=== PATIENT | female | born 1985 | race American Indian/Alaskan Native ===

== ENCOUNTER 2021-04-02 05:30 | Inpatient (IN) | payer SELFPAY ==
[2021-04-02] MEDS ORDERED: ONDANSETRON 4 MG/2 ML INJ IV PRN (06:53)
[2021-04-02] MEDS ORDERED: ONDANSETRON 4 MG/2 ML INJ IV ONE (06:53)
[2021-04-02] MEDS ORDERED: DEXTROSE 50% IN WATER (25GM) 50 ML SYRINGE IV PRN (06:54)
[2021-04-02] MEDS ORDERED: HALOPERIDOL LACTATE 5 MG/1 ML INJ IM PRN (06:55)
[2021-04-02] MEDS ORDERED: LACTATED RINGERS 1,000 ML IV ONE ×2 (06:57→08:40)
--- NOTE | 2021-04-02 06:58 | Emergency Department Report ---
ED General Adult HPI - General Chief complaint: Alcohol Stated complaint: ETOH, ABD PAIN PUI?: No Time Seen by Provider: 04/02/21 06:37 Source: EMS ( EMS documentation not available at time of chart dictation ), RN notes reviewed Mode of arrival: Stretcher Limitations: Altered Mental Status - History of Present Illness Initial comments: The patient was evaluated in the emergency department for symptoms described in the history of present illness. He/she was evaluated in the context of the global COVID-19 pandemic, which necessitated consideration that the patient might be at risk for infection with the virus that causes COVID-19. Institutional protocols and algorithms that pertain to the evaluation of patients at risk for COVID-19 are in a state of rapid change based on information released by regulatory bodies including the CDC and federal and state organizations. These policies and algorithms were followed during the patient's care in the emergency department. Please note that these policies, procedures and recommendations changed on a rapid basis. During the history and physical examination, I am chaperoned by nurse Nadja Fermin This is a 35-year-old female. She is not known to myself previously. She appears to be visiting from [place]. The details of her past medical history and context of her arrival to this emergency room are unclear. As per nursing documentation, the patient consumed quite a bit of alcohol today, may have mentioned something about suicidality, and also complained of abdominal pain. There is also documentation of a possible recent colonoscopy. The patient herself is altered. The patient moves 4 extremities. The patient would not answer my open ended or close ended questions. Nursing team reports that the patient was moving 4 extremities spontaneously. They also report that the patient really wouldn't follow commands. Additional history is not available at this time. Patient herself is altered, and not able to describe the qualitative nature of symptoms, exacerbating factors, relieving factors, or aggravating factors. -: unknown Location: abdomen (Nursing team indicates the patient complained of abdominal pain) Severity scale (0 -10): 5 - Related Data Allergies Allergy/AdvReac Type Severity Reaction Status Date / Time No Known Allergies Allergy Unverified 04/02/21 05:40 ED Review of Systems ROS: Stated complaint: ETOH, ABD PAIN Other details as noted in HPI Comment: Unobtainable due to pts medical conditions ED Past Medical Hx - Social History Smoking Status: Unknown if ever smoked ED Physical Exam - General Limitations: Altered Mental Status General appearance: lethargic, obese - Head Head exam: Present: atraumatic, normocephalic - Eye Eye exam: Present: EOMI, other (Pupils are dilated to 5/6 mm. Minimal reactive to light.) - ENT ENT exam: Present: mucous membranes moist - Neck Neck exam: Present: normal inspection. Absent: tenderness - Respiratory Respiratory exam: Present: accessory muscle use. Absent: respiratory distress, rales, rhonchi, stridor - Cardiovascular Cardiovascular Exam: Present: normal rhythm, tachycardia, normal heart sounds. Absent: bradycardia, irregular rhythm, systolic murmur, diastolic murmur, rubs, gallop - GI/Abdominal GI/Abdominal exam: Present: soft. Absent: distended, tenderness, guarding, rebound, rigid, pulsatile mass - Rectal Rectal exam: Present: normal inspection (Chaperoned by nurse Nadja Fermin) - External exam: Present: normal external exam (Chaperoned by nurse Nadja Decker). Absent: erythema, swelling - Extremities Exam Extremities exam: Present: normal inspection, full ROM, other (2+ pulses noted in the bilateral upper and lower extremities. There is no palpable cord. negative Homans sign. Muscular compartments are soft. The pelvis is stable.). Absent: pedal edema, calf tenderness - Back Exam Back exam: Present: normal inspection, full ROM. Absent: tenderness, CVA tenderness (R), CVA tenderness (L), paraspinal tenderness, vertebral tenderness - Neurological Exam Neurological exam: Present: altered, other (The patient is altered. The patient moves 4 extremities spontaneously. Detailed neurologic examination not possible secondary to altered mental status) - Skin Skin exam: Present: warm, dry, intact, normal color. Absent: rash ED Course Vital Signs 04/02/21 04/02/21 04/02/21 05:53 06:02 06:16 Temperature 97.7 F Pulse Rate 121 H Respiratory 18 Rate Blood Pressure 123/96 Blood Pressure 123/96 [Left] O2 Sat by Pulse 93 94 95 Oximetry O2 Sat by Pulse Oximetry [ Digit-Finger] 04/02/21 04/02/21 04/02/21 06:30 06:46 07:09 Temperature Pulse Rate 97 H 105 H 116 H Respiratory 15 25 H 19 Rate Blood Pressure 123/96 123/96 123/96 Blood Pressure [Left] O2 Sat by Pulse 86 90 91 Oximetry O2 Sat by Pulse Oximetry [ Digit-Finger] 04/02/21 04/02/21 04/02/21 07:16 07:30 07:44 Temperature Pulse Rate 118 H 119 H Respiratory 20 15 18 Rate Blood Pressure 123/96 93/49 Blood Pressure [Left] O2 Sat by Pulse 95 99 95 Oximetry O2 Sat by Pulse Oximetry [ Digit-Finger] 04/02/21 04/02/21 04/02/21 07:46 08:00 08:16 Temperature Pulse Rate 117 H 114 H 117 H Respiratory 17 25 H 32 H Rate Blood Pressure 100/49 98/48 100/49 Blood Pressure [Left] O2 Sat by Pulse 100 100 100 Oximetry O2 Sat by Pulse Oximetry [ Digit-Finger] 04/02/21 04/02/21 04/02/21 08:30 08:46 09:00 Temperature Pulse Rate 116 H 112 H 112 H Respiratory 27 H 20 13 Rate Blood Pressure 95/49 93/51 103/53 Blood Pressure [Left] O2 Sat by Pulse 99 Oximetry O2 Sat by Pulse Oximetry [ Digit-Finger] 04/02/21 04/02/21 04/02/21 09:16 09:30 09:46 Temperature Pulse Rate 113 H 110 H 108 H Respiratory 34 H 14 Rate Blood Pressure 127/60 127/60 127/60 Blood Pressure [Left] O2 Sat by Pulse 100 Oximetry O2 Sat by Pulse Oximetry [ Digit-Finger] 04/02/21 04/02/21 04/02/21 10:00 10:03 10:16 Temperature Pulse Rate 109 H 106 H Respiratory 26 H 40 H 28 H Rate Blood Pressure 127/60 90/43 Blood Pressure [Left] O2 Sat by Pulse 100 100 100 Oximetry O2 Sat by Pulse Oximetry [ Digit-Finger] 04/02/21 04/02/21 04/02/21 10:30 10:46 11:00 Temperature Pulse Rate 107 H 106 H 113 H Respiratory 37 H 39 H 41 H Rate Blood Pressure 90/43 90/43 94/41 Blood Pressure [Left] O2 Sat by Pulse 100 100 100 Oximetry O2 Sat by Pulse Oximetry [ Digit-Finger] 04/02/21 04/02/21 04/02/21 11:16 11:30 11:46 Temperature Pulse Rate 104 H 103 H 104 H Respiratory 16 39 H 33 H Rate Blood Pressure 94/41 84/36 78/41 Blood Pressure [Left] O2 Sat by Pulse 100 99 Oximetry O2 Sat by Pulse Oximetry [ Digit-Finger] 04/02/21 04/02/21 12:00 13:51 Temperature Pulse Rate 103 H Respiratory 37 H Rate Blood Pressure 101/53 Blood Pressure [Left] O2 Sat by Pulse 100 Oximetry O2 Sat by Pulse 90 Oximetry [ Digit-Finger] - Reevaluation(s) Reevaluation #1: 04/02/21 07:23 Differential diagnosis, including the not limited to: Toxic encephalopathy/alcohol intoxication, intracranial lesion, cervical spine lesion, intra-abdominal lesion, dehydration, electrolyte derangement Assessment and plan: 35-year-old female, who is clinically intoxicated. She presents as altered. The specifics of her prearrival to this hospital are unclear. Place patient on [address]. Obt[address] CT scan of the brain, cervical spine, CT scan of the abdomen pelvis. Obtain appropriate laboratory studies. Place patient on oxygen, obtain arterial blood gas, obtain urinalysis, and EKG. Obtain mental health evaluation. Reassess after initial data points. 04/02/21 07:49 EMS documentation is now are reviewed and appreciated. Apparently, family called 911 because the patient had been consuming alcohol, was laying on her side, and complaining of depression. Reportedly she had a colonoscopy 2 days prior to arrival here in [place]. EMS reports the patient is alert and oriented x2, with unremarkable vital signs. Work-up will continue as planned. 04/02/21 09:12 This patient pulled out her IV. She is impaired and intoxicated and encephalopathic at this time. She is found to have a white blood cell count of 17, which I suspect is a stress reaction. However, her laboratory studies have demonstrated renal insufficiency, and profound metabolic acidosis. I suspect that this is secondary to dehydration. However, we will give additional IV fluids, switch to normal saline, load empirically with ceftriaxone. We will also obtain arterial blood gas, blood cultures and lactic acid. I will also obtain a serum osmolality. The patient is acutely and critically ill, her test has not resulted at this time, but given her profound metabolic acidosis, leukocytosis, renal insufficiency, she is emergently and administratively consented for CT scan before test results by myself, for brain, cervical spine and abdomen pelvis without IV contrast, to evaluate for potential time sensitive conditions. In addition, have requested emergent consultation from both nephrology and critical care. We are currently awaiting callback. This patient will require admission to the medical service. She required soft wrist restraints. Hesitant to chemically restrain patient at this time, given obvious intoxication and encephalopathy. 04/02/21 09:14 2 L of supplemental oxygen will also be continued 04/02/21 10:04 CT scan of the brain, cervical spine, abdomen pelvis negative for acute trauma tic findings. Patient has profound metabolic acidosis. Serum toxicology studies, uric acid, toxic alcohol screen, osmolality studies ordered and pending. 2 A of sodium bicarbonate ordered. Have reached out and discussed the patient's history, physical, laboratory studies, imaging studies with hospital physician, critical care physician, and nephrology on-call respectively. Hospital physician, Dr. Peyman Kilpatrick to admit to the ICU Dr Kee approves admission to the ICU and will follow in consultation Dr Moncada of nephrology has recommended emergent hemodialysis. 2 A of sodium bicarbonate ordered, and he states he will order a sodium bicarbonate drip. He requested a vascular access catheter for hemodialysis. Dr Kee to place dialysis catheter This patient is critically ill with a profound metabolic acidosis, and requires multiple time sensitive emergent interventions. 04/02/21 13:50 38.6 mOsm/kg Osm Gap This is a significant Osm Gap; if there is also an anion gap acidosis, you should strongly consider methanol or ethylene glycol intoxication. osmolar gap This patient presented altered, with a profound metabolic acidosis. She also was found to have a significant osmolar gap. The patient requires emergent hemodialysis. Dr. Moncada and myself have emergently administratively consented this patient for emergent hemodialysis. The patient is altered encephalopathic, and does not have decision-making capacity, and is not currently accompanied by surrogate decision-maker. Furthermore, [place]. It is in this patient's best medical interest to receive emergency hemodialysis. 04/02/21 15:14 - EJ/Peripheral Line Neck L Time Out Performed: Yes Indications: nurses unable to establis Skin Cleansed in Sterile Fashion: Yes Size: 20 Dressing Placed: Tegaderm Patient Tolerated Procedure: well Other Time Out Performed: Yes Indications: nurses unable to establis Skin Cleansed in Sterile Fashion: Yes Size: 20 Dressing Placed: Tegaderm Patient Tolerated Procedure: well Additional Comments: Left-sided internal jugular IV is placed again. The patient pulled out her initially placed IV. - Pulse Oximetry Interpretation Digit-Finger Initial Pulse Oximetry Readin O2 Sat by Pulse Oximetry: 90 Actions Taken: increased FIO2 to (2 liters via nasal cannula) ED Medical Decision Making - Lab Data Result diagrams: 04/02/21 07:09 04/02/21 07:09 Vital Signs 04/02/21 04/02/21 04/02/21 05:53 06:02 07:09 Temperature 97.7 F Pulse Rate 121 H 116 H Respiratory 18 19 Rate Blood Pressure 123/96 Blood Pressure 123/96 [Left] O2 Sat by Pulse 93 94 91 Oximetry - EKG Data -: EKG Interpreted by Ma EKG shows normal: sinus rhythm Rate: tachycardia - EKG Data When compared to previous EKG there are: previous EKG unavailable 04/02/21 08:41 EKG interpreted at 08: 22 Sinus rhythm, tachycardia, rate 115 bpm. Normal axis, normal P wave axis, high left ventricular voltage, QTC prolonged, and 506 ms. QT 365 ms. This is an abnormal EKG. This is not a STEMI. - Radiology Data Radiology results: pending, report reviewed, image reviewed CT ABDOMEN AND PELVIS WITHOUT CONTRAST INDICATION: ams etoh intox abd pain. TECHNIQUE: Axial CT images were obtained through the abdomen and pelvis without IV contrast. All CT scans at this location are performed using CT dose reduction for ALARA by means of automated exposure control. COMPARISON: None available. FINDINGS: Limited by motion artifact. LOWER CHEST: No significant abnormality. LIVER: Moderate decreased attenuation characteristic for steatosis. GALLBLADDER: No significant abnormality. BILE DUCTS: No significant abnormality. PANCREAS: No significant abnormality. SPLEEN: No significant abnormality. ADRENALS: No si gnificant abnormality. RIGHT KIDNEY and URETER: No significant abnormality. LEFT KIDNEY and URETER: No significant abnormality. STOMACH and SMALL BOWEL: No significant abnormality. COLON: No significant abnormality. APPENDIX: No significant abnormality. PERITONEUM: No free fluid. No free air. No fluid collection. LYMPH NODES: No significant adenopathy. AORTA and ARTERIES: No significant abnormality. IVC and VEINS: No significant abnormality. URINARY BLADDER: No significant abnormality. REPRODUCTIVE ORGANS: No significant abnormality. ADDITIONAL FINDINGS: None. SKELETAL SYSTEM: No significant abnormality. IMPRESSION: 1. No significant abnormality. 2. Hepatic steatosis. Signer Name: Ferny Dean MD Signed: 04/02/2021 8:[address] head/brain wo con INDICATION: ams etoh intox. TECHNIQUE: Routine CT head. All CT scans at this location are performed using CT dose reduction for ALARA by means of automated exposure control. COMPARISON: None. FINDINGS: Intracranial: Diaz-white matter differentiation is maintained. No intracranial hemorrhage. No extra axial collection. No hydrocephalus. No herniation. Sinuses: Paranasal sinuses and mastoid air cells are essentially clear. Orbits: Globes are intact. Calvarium: No acute fracture. IMPRESSION: 1. No acute intracranial abnormality. Signer Name: Dick Liu MD Signed: 04/02/2021 8:36 AM Workstation Name: [id number] CT CERVICAL SPINE WITHOUT CONTRAST INDICATION: ams etoh intox. TECHNIQUE: Axial imaging performed through the cervical spine without the use of contrast. Sagittal and coronal reconstructed images were also reviewed. All CT scans at this location are performed using CT dose reduction for ALARA by means of automated exposure control. COMPARISON: None FINDINGS: Alignment: Spinal alignment is normal. Bones: There is no acute osseous abnormality. Mild multilevel discogenic DJD is present. Soft tissues: No acute or significant incidental soft tissue abnormality. IMPRESSION: No acute abnormality. Signer Name: Jose Gomez Jr, MD Signed: 04/02/2021 8:35 AM Workstation Name: [id number] Critical Care Time: Yes Critical care time in (mins) excluding proc time.: 65 Critical care attestation.: If time is entered above; I have spent that time in minutes in the direct care of this critically ill patient, excluding procedure time. ED Disposition Clinical Impression: Acute encephalopathy, Renal insufficiency, Metabolic acidosis, Systemic inflammatory response syndrome (SIRS), Abdominal pain, Pancreatitis Disposition: 09 ADMITTED INPATIENT Is pt being admited?: Yes Does the pt Need Aspirin: No Condition: Critical
[2021-04-02 08:09] LABS: Mean Corpuscular HGB Conc 27 % (30-34); Mean Corpuscular Volume 100 fl (79-97); Platelet Count 184 K/mm3 (140-440); Red Blood Count 3.57 M/mm3 (3.65-5.03)
[2021-04-02] MEDS ORDERED: THIAMINE 100 MG, FOLIC ACID 1 MG, MULTIPLE VITAMIN INJ, ADULT 10 ML in SODIUM CHLORIDE ... IV ONE (08:30)
[2021-04-02 08:35] LABS: Hematocrit 35.7 % (30.3-42.9); Hemoglobin 9.6 gm/dl (10.1-14.3); Red Cell Distribution Width 26.9 % (13.2-15.2)
[2021-04-02 08:37] LABS: Calcium 11.1 mg/dL (8.4-10.2)
[2021-04-02] MEDS ORDERED: LIDOCAINE-MPF (1%) 10 MG/1 ML VIAL 5 ML INFILTRATI ONE (09:07)
[2021-04-02] MEDS ORDERED: SODIUM CHLORIDE 0.9% 1000 ML 2,000 ML IV ONE ×2 (09:08→11:41)
[2021-04-02] MEDS ORDERED: cefTRIAXone/NS 1 GM/50 ML 1 GM/50 ML BAG IV STA (09:22)
--- NOTE | 2021-04-02 09:39 | Cat Scan Report ---
CT CERVICAL SPINE WITHOUT CONTRAST INDICATION: ams etoh intox. TECHNIQUE: Axial imaging performed through the cervical spine without the use of contrast. Sagittal and coronal reconstructed images were also reviewed. All CT scans at this location are performed us ing CT dose reduction for ALARA by means of automated exposure control. COMPARISON: None FINDINGS: Alignment: Spinal alignment is normal. Bones: There is no acute osseous abnormality. Mild multilevel discogenic DJD is present. Soft tissues: No acute or significant incidental soft tissue abnormality. IMPRESSION: No acute abnormality. Signer Name: Jose Gomez Jr, MD Signed: 04/02/2021 9:35 AM Workstation Name: [id number]
--- NOTE | 2021-04-02 09:40 | Cat Scan Report ---
CT head/brain wo con INDICATION: ams etoh intox. TECHNIQUE: Routine CT head. All CT scans at this location are performed using CT dose reduction for A JULITO by means of automated exposure control. COMPARISON: None. FINDINGS: Intracranial: Diaz-white matter differentiation is maintained. No intracranial hemorrhage. No extra a xial collection. No hydrocephalus. No herniation. Sinuses: Paranasal sinuses and mastoid air cells are essentially clear. Orbits: Globes are intact. Calvarium: No acute fracture. IMPRESSION: 1. No acute intracranial abnormality. Signer Name: Dick Liu MD Signed: 04/02/2021 9:36 AM Workstation Name: [id number]
[2021-04-02] MEDS ORDERED: SODIUM CHLORIDE 0.9% 100 ML IV PRN (10:01)
[2021-04-02] MEDS ORDERED: SODIUM BICARB 8.4% 50 MEQ/50 ML SYRINGE IV ONE (10:02)
--- NOTE | 2021-04-02 10:02 | Consultation ---
History of Present Illness - History of Present Illness Thank you for the consultation Patient was evaluated today My assessment and plan are as follows #Renal failure severe in a patient with unexplained severe acidosis altered mental status some shortness of breath, history of alcohol abuse, She is unable to provide any history and since she has severe acidosis and renal failure which is unexplained will order workup for that and will need immediate renal replacement therapy possibility of toxic alcohol ingestion cannot be ruled out including ethylene glycol, tox screen needs to be sent, patient is not a good historian and unable to provide history due to encephalopathy Discussed with emergency room physician about emergent dialysis and immediate Vas-Cath placement through ICU, We will send all the renal related labs including osmolality, renal ultrasonogram urinalysis, a gap calculation, Continue to patiently monitor renal function for any meaningful recovery follow- up on the tox screen, #Severe acidosis unexplained patient does need emergent dialysis she has labored breathing and renal failure of unexplained etiology #History of chronic alcohol abuse? Excellent glycol intoxication rule out others, may need to see psychiatry, #Altered mental status most likely resulting from toxic and metabolic causes, me eds close follow-up at this time renal prognosis remains very guarded, will wait for dialysis to see how she does she may need a repeat dialysis treatment tomorrow depending on her labs, History of alcohol abuse should be followed by psychiatry to rule out any underlying depression, suicidal ideation etc. Care plan was discussed with the ICU attending physician Dr. Dailey as well as ER physician about immediate renal replacement therapy, dialysis catheter will be placed at [facility] and saw the patient in the ER Author: Phillip Moncada M.D. [facility], [address] [place] [address] Tel; [phone] Source of information: From current chart emergency room physician patient encephalopathic confused disoriented unable to provide any history History of present illness 35-year-old female with a to ER with complaints of Patient was noted to be severely acidotic, there is no record in our system to know whether she has kidney disease or not but patient is also disoriented confused, and has labored breathing, Patient is bicarbonate upon admission was only 2 creatinine was 1.8 most information was obtained from patient's current chart Past medical history:reviewed from the current chart Current allergies: Reviewed from the current chart Social history: Reviewed from the current chart Family history: Reviewed from the current chart Review of system: unable to provide history due to confusion and disorientation Physical examination Vitals: Reviewed General: disoriented confused HEENT: Oral mucosa moist no pallor or icterus Neck: Supple without any JVD thyromegaly or nodular mass Chest: appears to be tachypneic respiratory rate 26, few basilar crackles Heart: Regular rate and rhythm S1-S2 heard no S3-S4 Abdomen: Soft nontender, bowel sounds present no renal bruit no suprapubic masses no CVA tenderness noted Extremity: Minimal edema dry skin no peripheral cyanosis Endocrine: Thyroid not enlarged Psychiatric: remains disoriented and confused Musculoskeletal: No joint effusion noted Labs and x-rays: Reviewed from this admission Medications and Allergies Allergies Allergy/AdvReac Type Severity Reaction Status Date / Time No Known Allergies Allergy Unverified 04/02/21 05:40 Active Meds: Active Medications Dextrose (Dextrose 50% In Water (25gm) 50 Ml Syringe) 50 ml IV Q30MIN PRN; Protocol PRN Reason: Hypoglycemia Thiamine HCl 100 mg/ Folic Acid 1 mg/ Multivitamins/Minerals 10 ml/ Sodium Chloride 1,011.2 mls @ 250 mls/hr IV ONCE ONE Stop: 04/02/21 12:32 Last Admin: 04/02/21 08:28 Dose: 250 mls/hr Documented by: Lorazepam (Lorazepam 2 Mg/Ml Vial) 2 mg IM Q4HR PRN PRN Reason: Agitation Ondansetron HCl (Ondansetron 4 Mg/2 Ml Inj) 4 mg IV Q4H PRN PRN Reason: Nausea And Vomiting Exam - Vital Signs Vital signs: Vital Signs Temp Pulse Resp BP Pulse Ox 97.7 F 121 H 18 123/96 93 04/02/21 05:53 04/02/21 05:53 04/02/21 05:53 04/02/21 05:53 04/02/21 05:53 Results - Lab Results 04/07/21 05:03 04/07/21 05:03 Most recent lab results Calcium 11.1 mg/dL (8.4-10.2) H 04/02/21 07:09 Magnesium 3.50 mg/dL (1.7-2.3) H 04/02/21 07:09
[2021-04-02] MEDS ORDERED: SODIUM BICARBONATE 2 MEQ/2 ML SYRINGE IV STA (10:08)
--- NOTE | 2021-04-02 10:26 | Electrocardiograph Report ---
[facility] Test Date: 2021-04-02 Test Time: 08:22:35 Pat Name: MARIA DEL CARMEN MARCUS Department: Room: Gender: F Nuclear Chemistry Technician: ALEXANDRA VERDINB: 1985 Requested By: JAZIEL MELLO Order Number: [id number] Reading MD: Idris Gomes Measurements Intervals [place] Rate: 115 P: 60 MD: 152 QRS: 60 QRSD: 88 T: 62 QT: 365 QTc: 506 Interpretive Statements Sinus tachycardia Prolonged QT interval No previous ECG available for comparison Electronically Signed On 04-02-2021 10:25:47 EDT by Idris Gomes
--- NOTE | 2021-04-02 10:57 | Event Note ---
Date: 04/02/21 I attempted to evaluate 35y/o Allyn Wilder. The patient appears to be heavily sedated during the visit. She is in 4 point restraints. She is slightly awake, but unable to tell me anything. She is grunting, and moaning. She is confused and does not know where she is. The patient keeps repeating "I want some water." Will revaluate the patient when she is more awake and able to engage in the evaluation.
[2021-04-02] MEDS ORDERED: SODIUM BICARBONATE 150 MEQ in WATER FOR INJECTION (PF) 1,000 ML IV SCH (11:00)
--- NOTE | 2021-04-02 11:24 | Consultation ---
History of Present Illness Consult date: 04/02/21 Requesting physician: JAZIEL MELLO Reason for consult: other (Severe Metabolic Acidosis; Acute Encephalopathy) History of present illness: PCCM CONSULT NOTE (Full dictation # [id number]) Please see dictated notes for full details Medications and Allergies Allergies Allergy/AdvReac Type Severity Reaction Status Date / Time No Known Allergies Allergy Unverified 04/02/21 05:40 Active Meds: Active Medications Dextrose (Dextrose 50% In Water (25gm) 50 Ml Syringe) 50 ml IV Q30MIN PRN; Prot ocol PRN Reason: Hypoglycemia Thiamine HCl 100 mg/ Folic Acid 1 mg/ Multivitamins/Minerals 10 ml/ Sodium Chloride 1,011.2 mls @ 250 mls/hr IV ONCE ONE Stop: 04/02/21 12:32 Last Admin: 04/02/21 08:28 Dose: 250 mls/hr Documented by: Sodium Chloride (Nacl 0.9%) 100 mls @ 999 mls/hr IV DIMPLE PRN PRN Reason: Hypotension Sodium Bicarbonate 150 meq/ (Sterile Water) 1,150 mls @ 100 mls/hr IV DIRECT MARIAH Lorazepam (Lorazepam 2 Mg/Ml Vial) 2 mg IM Q4HR PRN PRN Reason: Agitation Ondansetron HCl (Ondansetron 4 Mg/2 Ml Inj) 4 mg IV Q4H PRN PRN Reason: Nausea And Vomiting Physical Examination Vital signs: Vital Signs Temp Pulse Resp BP Pulse Ox 97.7 F 121 H 18 123/96 93 04/02/21 05:53 04/02/21 05:53 04/02/21 05:53 04/02/21 05:53 04/02/21 05:53 Results - Laboratory Findings CBC and BMP: 04/02/21 07:09 04/02/21 07:09 ABG ABG pH 6.657 (7.320-7.450) L 04/02/21 10:02 POC ABG pCO2 16.1 mmHg (32.0-48.0) L 04/02/21 10:02 POC ABG pO2 142.3 mmHg (83-108) H 04/02/21 10:02 POC ABG HCO3 1.8 04/02/21 10:02 ABG O2 Saturation 96.9 (0-100) 04/02/21 10:02 Abnormal lab findings: Abnormal Labs 04/02/21 04/02/21 04/02/21 07:09 07:09 07:09 WBC 17.9 H RBC 3.57 L Hgb 9.6 L MCV 100 H MCH 27 L MCHC 27 L RDW 26.9 H ABG pH POC ABG pCO2 POC ABG pO2 ABG Hemoglobin ABG Sodium ABG Potassium ABG Glucose Potassium 5.3 H Chloride 92.2 L Carbon Dioxide 2 L* Creatinine 1.8 H Calcium 11.1 H Magnesium 3.50 H AST 202 H Lipase Arterial Blood Glucose Arterial Blood Ionized Calcium Salicylates < 0.3 L Acetaminophen Plasma/Serum Alcohol 04/02/21 04/02/21 04/02/21 07:09 07:09 07:09 WBC RBC Hgb MCV MCH MCHC RDW ABG pH POC ABG pCO2 POC ABG pO2 ABG Hemoglobin ABG Sodium ABG Potassium ABG Glucose Potassium Chloride Carbon Dioxide Creatinine Calcium Magnesium AST Lipase 448 H Arterial Blood Glucose Arterial Blood Ionized Calcium Salicylates Acetaminophen 5.0 L Plasma/Serum Alcohol 0.13 H 04/02/21 10:02 WBC RBC Hgb MCV MCH MCHC RDW ABG pH 6.657 L POC ABG pCO2 16.1 L POC ABG pO2 142.3 H ABG Hemoglobin 9.7 L ABG Sodium 116.9 L ABG Potassium 5.4 H ABG Glucose 100 H Potassium Chloride Carbon Dioxide Creatinine Calcium Magnesium AST Lipase Arterial Blood Glucose 100 H Arterial Blood Ionized Calcium 5.4 H Salicylates Acetaminophen Plasma/Serum Alcohol
[2021-04-02 11:31] LABS: Hepatitis C Virus Antibody Non-Reactive (NonReactive)
[2021-04-02] MEDS ORDERED: SODIUM CHLORIDE 0.9% 1000 ML 2,000 ML ONE (11:39)
[2021-04-02] MEDS ORDERED: NORepinephrine/NS 4 MG-250 ML 4 MG/250 ML BAG IV ONE (11:45)
--- NOTE | 2021-04-02 11:55 | XRay Report ---
CHEST 1 VIEW 04/02/2021 11:49 AM INDICATION / CLINICAL INFORMATION: vas cath placement. COMPARISON: None available. FINDINGS: SUPPORT DEVICES: Right Vas-Cath tip overlies the distal SVC HEART / MEDIASTINUM: No significant abnormality. LUNGS / PLEURA: Mild increased pulmonary vascularity No pneumothorax. ADDITIONAL FINDINGS: No significant additional findings. IMPRESSION: 1. No acute findings. Signer Name: José Oliveros MD Signed: 04/02/2021 11:51 AM Workstation Name: [id number]
[2021-04-02] MEDS ORDERED: VASOPRESSIN 20 UNIT in SODIUM CHLORIDE 0.9% 100 ML IV SCH (12:00)
[2021-04-02] MEDS: NORepinephrine/NS 4 MG-250 ML 4 MG/250 ML BAG IV SCH (12:01)
[2021-04-02 12:02] LABS: Hepatitis B Surface Antigen Nonreactive (Negative)
--- NOTE | 2021-04-02 13:29 | History and Physical Report ---
History of Present Illness Date of examination: 04/02/21 Date of admission: 04/02/21 10:06 Chief complaint: Altered mental status History of present illness: 35-year-old -Russian female presented to the hospital with a history of alcohol abuse with complaints of altered mental status. During my encounter patient is four-point restraint confused. Work-up in the ER suggestive for elevated white count, macrocytic anemia hyperkalemia elevated creatinine and lactic acidosis. Patient initiated on CIWA protocol, given normal saline bolus and call for admission for further evaluation and management. Medications and Allergies Allergies Allergy/AdvReac Type Severity Reaction Status Date / Time No Known Allergies Allergy Unverified 04/02/21 05:40 Active Meds: Active Medications Dextrose (Dextrose 50% In Water (25gm) 50 Ml Syringe) 50 ml IV Q30MIN PRN; Protocol PRN Reason: Hypoglycemia Sodium Chloride (Nacl 0.9%) 100 mls @ 999 mls/hr IV DIMPLE PRN PRN Reason: Hypotension Sodium Bicarbonate 150 meq/ (Sterile Water) 1,150 mls @ 100 mls/hr IV DIRECT MARIAH Last Admin: 04/02/21 12:05 Dose: 100 mls/hr Documented by: Norepinephrine (Levophed Drip 4 Mg/Ns 250 Ml) 4 mg in 250 mls @ 7.5 mls/hr IV TITR MARIAH; Protocol Last Titration: 04/02/21 12:09 Dose: 7 mcg/min, 26.25 mls/hr Documented by: Vasopressin 20 unit/ Sodium (Chloride) 101 mls @ 9.09 mls/hr IV TITR MARIAH; P rotocol Last Admin: 04/02/21 12:02 Dose: 0.03 units/min, 9.09 mls/hr Documented by: Sodium Chloride (Nacl 0.9% 1000 Ml) 2,000 mls @ 999 mls/hr IV BOLUS ONE Stop: 04/02/21 13:41 Last Admin: 04/02/21 12:00 Dose: 999 mls/hr Documented by: Lorazepam (Lorazepam 2 Mg/Ml Vial) 2 mg IM Q4HR PRN PRN Reason: Agitation Ondansetron HCl (Ondansetron 4 Mg/2 Ml Inj) 4 mg IV Q4H PRN PRN Reason: Nausea And Vomiting Exam - Constitutional Vitals: Temp Pulse Resp BP Pulse Ox 97.7 F 103 H 37 H 101/53 100 04/02/21 05:53 04/02/21 12:00 04/02/21 12:00 04/02/21 12:00 04/02/21 12:00 Results - Labs CBC & Chem 7: 04/02/21 07:09 04/02/21 07:09 Labs: Abnormal lab results 04/02/21 04/02/21 04/02/21 Range/Units 07:09 07:09 07:09 WBC 17.9 H (4.5-11.0) K/mm3 RBC 3.57 L (3.65-5.03) M/mm3 Hgb 9.6 L (10.1-14.3) gm/dl MCV 100 H (79-97) fl MCH 27 L (28-32) pg MCHC 27 L (30-34) % RDW 26.9 H (13.2-15.2) % ABG pH (7.320-7.450) POC ABG pCO2 (32.0-48.0) mmHg POC ABG pO2 (83-108) mmHg ABG Hemoglobin (12.0-17.5) ABG Sodium (136.0-145.0) mmol/L ABG Potassium (3.40-4.50) mmol/L ABG Glucose (65-95) mg/dL Potassium 5.3 H (3.6-5.0) mmol/L Chloride 92.2 L (98-107) mmol/L Carbon Dioxide 2 L* (22-30) mmol/L Creatinine 1.8 H (0.6-1.2) mg/dL POC Glucose (70-105) mg/dL Calcium 11.1 H (8.4-10.2) mg/dL Magnesium 3.50 H (1.7-2.3) mg/dL AST 202 H (5-40) units/L Lipase (13-60) units/L Arterial Blood Glucose (65-95) mg/dL Arterial Blood Ionized Calcium (4.6-5.3) mg/dL Salicylates < 0.3 L (2.8-20.0) mg/dL Acetaminophen (10.0-30.0) ug/mL Plasma/Serum Alcohol (0-0.07) % 04/02/21 04/02/21 04/02/21 Range/Units 07:09 07:09 07:09 WBC (4.5-11.0) K/mm3 RBC (3.65-5.03) M/mm3 Hgb (10.1-14.3) gm/dl MCV (79-97) fl MCH (28-32) pg MCHC (30-34) % RDW (13.2-15.2) % ABG pH (7.320-7.450) POC ABG pCO2 (32.0-48.0) mmHg POC ABG pO2 (83-108) mmHg ABG Hemoglobin (12.0-17.5) ABG Sodium (136.0-145.0) mmol/L ABG Potassium (3.40-4.50) mmol/L ABG Glucose (65-95) mg/dL Potassium (3.6-5.0) mmol/L Chloride (98-107) mmol/L Carbon Dioxide (22-30) mmol/L Creatinine (0.6-1.2) mg/dL POC Glucose (70-105) mg/dL Calcium (8.4-10.2) mg/dL Magnesium (1.7-2.3) mg/dL AST (5-40) units/L Lipase 448 H (13-60) units/L Arterial Blood Glucose (65-95) mg/dL Arterial Blood Ionized Calcium (4.6-5.3) mg/dL Salicylates (2.8-20.0) mg/dL Acetaminophen 5.0 L (10.0-30.0) ug/mL Plasma/Serum Alcohol 0.13 H (0-0.07) % 04/02/21 04/02/21 04/02/21 Range/Units 10:02 12:18 12:31 WBC (4.5-11.0) K/mm3 RBC (3.65-5.03) M/mm3 Hgb (10.1-14.3) gm/dl MCV (79-97) fl MCH (28-32) pg MCHC (30-34) % RDW (13.2-15.2) % ABG pH 6.657 L (7.320-7.450) POC ABG pCO2 16.1 L (32.0-48.0) mmHg POC ABG pO2 142.3 H (83-108) mmHg ABG Hemoglobin 9.7 L (12.0-17.5) ABG Sodium 116.9 L (136.0-145.0) mmol/L ABG Potassium 5.4 H (3.40-4.50) mmol/L ABG Glucose 100 H (65-95) mg/dL Potassium (3.6-5.0) mmol/L Chloride (98-107) mmol/L Carbon Dioxide (22-30) mmol/L Creatinine (0.6-1.2) mg/dL POC Glucose 124 H 112 H (70-105) mg/dL Calcium (8.4-10.2) mg/dL Magnesium (1.7-2.3) mg/dL AST (5-40) units/L Lipase (13-60) units/L Arterial Blood Glucose 100 H (65-95) mg/dL Arterial Blood Ionized Calcium 5.4 H (4.6-5.3) mg/dL Salicylates (2.8-20.0) mg/dL Acetaminophen (10.0-30.0) ug/mL Plasma/Serum Alcohol (0-0.07) % Assessment and Plan Acute toxic metabolic encephalopathy Alcohol intoxication Severe metabolic acidosis KENYATTA likely ATN Hyperkalemia Macrocytic anemia -Admit patient to ICU -Monitor with frequent neuro checks, patient remains on restraint -Continue [facility] protocol nephrology consulted -Plan for emergent hemodialysis, Vas-Cath has been placed -Follow clinically The high probability of a clinically significant, sudden or life threatening deterioration of the [multiple] system(s) required my full and direct attention, intervention and personal management. The aggregate critical care time was [55] minutes. This time is in addition to time spent performing reported procedures but includes the following: [x] Data Review and interpretation [x] Patient assessment and monitoring of vital signs [x] Documentation [x] Medication orders and management
[2021-04-02 16:04] LABS: Basophils # (Auto) 0.2 K/mm3 (0.0-0.1); Basophils % (Auto) 1.9 % (0.0-1.8); Eosinophils # (Auto) 0.5 K/mm3 (0.0-0.4); Eosinophils % (Auto) 6.2 % (0.0-4.3); Lymphocytes # (Auto) 3.1 K/mm3 (1.2-5.4); Lymphocytes % (Auto) 37.5 % (13.4-35.0); Monocytes # (Auto) 0.5 K/mm3 (0.0-0.8)
[2021-04-02 16:27] LABS: Anisocytosis 3+; Band Neutrophils # (Manual) 0.5 K/mm3; Myelocytes # (Manual) 0.2 K/mm3; Total Cells Counted 100
[2021-04-02 16:28] LABS: Large Platelets Few; Platelet Estimate Consistent w Auto; Spherocytes 1+
[2021-04-02] MEDS: LORazepam 2 MG/ML VIAL IM PRN ×2 (17:37→23:05)
[2021-04-02 17:51] LABS: BUN/Creatinine Ratio 9; Blood Urea Nitrogen 11 mg/dL (7-17); Calcium 8.5 mg/dL (8.4-10.2); Hemolysis Index 47
--- NOTE | 2021-04-02 18:07 | Ultrasound Report ---
ULTRASOUND RENAL INDICATION / CLINICAL INFORMATION: renal failure. COMPARISON: None available. FINDINGS: RIGHT KIDNEY: Length = 10.4 cm. - Echogenicity: Normal. - Cortical Thickness: Normal. - Hydronephrosis: None. - Cyst or mass: No significant abnormality. - Stones: None seen. LEFT KIDNEY: Length = 10.8 cm. - Echogenicity: Normal. - Cortical Thickness: Normal. - Hydronephrosis: None. - Cyst or mass: No significant abnormality. - Stones: None seen. URINARY BLADDER: No significant abnormality. FREE FLUID: None. ADDITIONAL FINDINGS: None. IMPRESSION: 1. No significant abnormality. Signer Name: José Oliveros MD Signed: 04/02/2021 6:03 PM Workstation Name: [email or web address]
[2021-04-02 18:29] LABS: Blood Urea Nitrogen 5 mg/dL (7-17); Calcium 7.8 mg/dL (8.4-10.2); Hemolysis Index 20
[2021-04-02 18:31] LABS: BUN/Creatinine Ratio 8
--- NOTE | 2021-04-02 21:33 | Consultation ---
DATE OF CONSULTATION: 04/02/2021 PULMONARY CRITICAL CARE CONSULTATION CONSULTING PHYSICIAN: Dr. Stoll. REASON FOR CONSULTATION: Severe metabolic acidosis, acute encephalopathy. CHIEF COMPLAINT AND HISTORY OF PRESENT ILLNESS: The patient is a 35-year-old female known to me from prior admissions, admits to me that she does do a lot of drinking, but otherwise unknown past medical history. According to the ER note, she is visiting from [place]. As per nursing documentation, she consumed quite a bit of alcohol today, may have mentioned something about suicidality, complained of abdominal pain. There is documentation of a possible recent colonoscopy. She was delirious is the best way to describe her mental status. She would answer appropriately at times and followed commands. Evaluation quickly revealed a severe metabolic acidosis with a serum bicarbonate of 2 and an acute kidney injury and requiring emergent hemodialysis. We are asked to assist with management. When I stopped by to see her, she was lying in bed. She was on supplemental oxygen at 2 liters of flow. She had obvious Kussmaul's respiratory pattern and was significantly tachypneic. She denied nausea, vomiting or overt aspiration. She denied fevers with regard to tobacco use or abuse. She seems to deny history of tobacco use. This really is as much of the history of presentation as I have. We do not have any next of kin at this point in time. PAST MEDICAL HISTORY: Unknown. PAST SURGICAL HISTORY: Unknown. MEDICATIONS: She was on at the time I stopped by to see according to the medication administration record included the following: Ativan 2 mg IM q.4 hours p.r.n. agitation, Zofran 4 mg IV q.4 hours p.r.n. nausea and vomiting, bicarbonate drip with 3 amps of sodium bicarbonate per liter of D5W was going at 100 mL per hour. She also got 1 amp of bicarbonate IV push. She is also receiving a banana bag with folic acid, multivitamins ____ and thiamine that was 250 mL per hour for 1 liter bag. ALLERGIES: No known drug allergies. DIET: Well built lady, acute weight loss or gain history is unknown. FAMILY AND SOCIAL HISTORY: Comes from the community. She admits to drinking a lot of alcohol, tobacco or illicit drug use. Abuse history are unknown. Family history are otherwise unknown. REVIEW OF SYSTEMS: Difficult to obtain secondary to the patient's mental status. Since she has been here, no gross hematochezia or melena, no gross hematuria, no hematemesis, no hemoptysis, no witnessed seizures. Review of systems are otherwise unobtainable as in the body of history above. PHYSICAL EXAMINATION: VITAL SIGNS: At presentation over here vital signs are temperature 97.7, pulse was 121, respiratory rate was as high as 40 and blood pressure 123/96, O2 sats were 93% that was on 2 liters nasal cannula. Most recent blood pressure is 90/43 with a MAP of 48. GENERAL: She is a young female. Normocephalic, atraumatic, talking to with interrupted sentences with moderately increased respiratory effort at rest. HEAD, EYES, EARS, NOSE AND THROAT: Anicteric. No conjunctival erythema. Oropharynx was dry. NECK: No gross jugular venous distention. No thyromegaly. Grossly, there were no palpable lymph nodes in the supraclavicular or submandibular lymph node chains. LUNGS: Auscultation of both lung singh are unremarkable. Lungs were clear bilaterally with good bilateral air movement. HEART: Sounds 1 and 2 are heard at the time of my evaluation, regular rate and rhythm without overt rubs or murmurs. ABDOMEN: Soft, full, bowel sounds are positive, nontender, no palpable hepatosplenomegaly. EXTREMITIES: Without overt digital clubbing or cyanosis, no pedal edema. Pedal pulses are 2+ bilaterally. NEUROLOGIC: Pupils are equal, round, about 3 mm, reactive to light. Extraocular muscle movements are intact. No nystagmus. She moves all 4 extremities spontaneously. SKIN: Normal turgor in the areas I examined without overt cellulitis or rash. Please see the wound care nurses' notes for full description of her skin. PSYCHIATRIC: Mood and affect could not be assessed. She was delirious. LABORATORY DATA: From my review so far, white cell count 17,900, hemoglobin 9.6, hematocrit 35.7, platelet count 184. No manual differential. Arterial blood gas showed a pH of 6.66, pCO2 of 16, pO2 of 142 that was on 4 liters nasal cannula. Serum sodium was 142, potassium 5.3, chloride 92, bicarbonate 2, BUN 13, creatinine 1.8, glucose was 95, AST was elevated at 202, ALT 34, lipase was elevated at 448, alcohol level was 0.13 elevated, aspirin and Tylenol level within normal limits. Hepatitis screen is pending. No blood cultures. A CT scan of the head and cervical spine have been done. I have reviewed the radiologist's report. The CT of the head, no acute process. CT of the C-spine, no acute process. CT of the abdomen and pelvis has been done. We will await the official read, but was reported as negative. The lung windows apart from motion artifact, no acute process that I can see. ASSESSMENT: 1. Acute toxic metabolic encephalopathy. 2. Severe metabolic acidosis. 3. Acute kidney injury. 4. Leukocytosis. 5. Anemia that is microcytic. 6. Likely alcohol abuse. 7. Hyperkalemia. 8. Elevated serum transaminase. 9. Alcohol intoxication. PLAN: She is now status post Vascath placement. There is no family to reach out to say was done as an emergent procedure. She tolerated the procedure well. Post-procedure, chest x-ray is pending. She is going to have emergent dialysis. She will received some volume resuscitation during dialysis. She denies drinking any antifreeze isopropyl alcohol or any other non-conventional alcohol. Oxygen will be weaned to keep sats greater than or equal to about 90%. Aspiration precautions will be maintained. She will be placed on an alcohol withdrawal protocol and watch closely. CT of the abdomen and pelvis was negative for any significant pancreatitis with regard to the leukocytosis. I do believe it is a stress leukocytosis. We will get a procalcitonin level to help guide clinical decision making. She did receive 1 g of Rocephin as far as I can see. She will be placed on GI prophylaxis as well as DVT prophylaxis. Flu and pneumonia vaccination will be addressed per protocol. Nephrology consult has been placed. I should mention she will receive aggressive volume resuscitation for hypotension. Vasopressors will be started if she does not respond to the volume resuscitation. Again, thank you very much for the consult, Dr. Stoll. We will follow along and make further recommendations as picture progresses/becomes clearer. She is critically ill on life-sustaining interventions including the hemodialysis and about to begin vasopressors at high risk of from cardiopulmonary renal system decompensation. At this time, I spent about 35-40 minutes of critical care time without overlap and excluding any procedural time that may be necessary. TID: [id number] RECEIPT: [id number] JOSUÉ/ISAAC
[2021-04-02 23:35] LABS: BUN/Creatinine Ratio 7; Blood Urea Nitrogen 8 mg/dL (7-17); Calcium 7.5 mg/dL (8.4-10.2); Hemolysis Index 21
[2021-04-03] MEDS: NORepinephrine/NS 4 MG-250 ML 4 MG/250 ML BAG IV SCH (01:53)
[2021-04-03 06:51] LABS: Calcium 7.1 mg/dL (8.4-10.2)
--- NOTE | 2021-04-03 08:16 | Cat Scan Report ---
CT ABDOMEN AND PELVIS WITHOUT CONTRAST INDICATION: ams etoh intox abd pain. TECHNIQUE: Axial CT images were obtained through the abdomen and pelvis without IV contrast. All CT scans at [facility] location are performed using CT dose reduction for ALARA by means of automated exposure control. COMPARISON: None available. FINDINGS: Limited by motion artifact. LOWER CHEST: No significant abnormality. LIVER: Moderate decreased attenuation characteristic for steatosis. GALLBLADDER: No significant abnormality. BILE DUCTS: No significant abnormality. PANCREAS: No significant abnormality. SPLEEN: No significant abnormality. ADRENALS: No significant abnormality. RIGHT KIDNEY and URETER: No significant abnormality. LEFT KIDNEY and URETER: No significant abnormality. STOMACH and SMALL BOWEL: No significant abnormality. COLON: No significant abnormality. APPENDIX: No significant abnormality. PERITONEUM: No free fluid. No free air. No fluid collection. LYMPH NODES: No significant adenopathy. AORTA and ARTERIES: No significant abnormality. IVC and VEINS: No significant abnormality. URINARY BLADDER: No significant abnormality. REPRODUCTIVE ORGANS: No significant abnormality. ADDITIONAL FINDINGS: None. SKELETAL SYSTEM: No significant abnormality. IMPRESSION: 1. No significant abnormality. 2. Hepatic steatosis. Signer Name: Ferny Dean MD Signed: 04/02/2021 9:38 AM Workstation Name: [email or web address]
--- NOTE | 2021-04-03 08:37 | Progress Note ---
Subjective Interval history: Patient was seen today for follow-up of multiple renal related issues patient remains disoriented and confused, she also appears to be dyspneic Interdisciplinary notes that also reviewed Events of 24 hours vitals labs intake output medications were reviewed Past medical history: Reviewed Family history: Reviewed Social history: Reviewed Allergies: Reviewed Physical examination: Vitals: Reviewed HEENT: No pallor or icterus oral mucosa moist Neck: Supple no JVD no thyromegaly Chest: Bilateral crackles at lung bases Heart: Regular rate and rhythm S1-S2 heard no S3-S4 Abdomen: Soft nontender no voluntary guarding rigidity rebound Extremity: Dry skin less than 1+ peripheral edema Psychiatric: appears to be disoriented and confused Dermatology: No petechial rashes Labs and x-rays: Reviewed from today Assessment and plan Renal failure with large osmolar gap metabolic acidosis status post dialysis treatment currently on bicarb drip patient still continues to have acidosis Has history of alcohol use, pending tox screen to come back: ethylene glycol SOB with conversation needs echo chst x ray will also need arterial blood gas discussed with attending physician Will order for a second dialysis treatment today Consider ultrafiltration approximately a liter Calculated osmolality 294 measured to 366 : Large gap Patient is not a very reliable historian/ has history of chronic alcohol abuse care plan has been discussed with attending physician as well as patient's nurse Patient remains critically ill in need for renal replacement therapy time spent in critical care 33 minutes We'll continue to follow and make recommendation for renal standpoint Objective - Vital Signs Vital signs: Vital Signs - 12hr 04/02/21 04/02/21 04/02/21 20:46 21:00 21:16 Pulse Rate 140 H 145 H Respiratory 39 H 25 H Rate Blood Pressure 121/67 181/97 147/118 O2 Sat by Pulse 97 99 100 Oximetry 04/02/21 04/02/21 04/02/21 21:30 21:46 22:00 Pulse Rate 144 H 143 H 143 H Respiratory 33 H 34 H 39 H Rate Blood Pressure 111/66 132/77 123/73 O2 Sat by Pulse 100 100 100 Oximetry 04/02/21 04/02/21 04/02/21 22:16 22:30 22:46 Pulse Rate 144 H 144 H 143 H Respiratory 38 H 29 H 39 H Rate Blood Pressure 132/77 106/48 79/47 O2 Sat by Pulse Oximetry 04/02/21 04/02/21 04/02/21 23:00 23:16 23:30 Pulse Rate 141 H 142 H 142 H Respiratory 33 H 29 H 33 H Rate Blood Pressure 134/78 135/72 131/76 O2 Sat by Pulse 100 Oximetry 04/02/21 04/02/21 04/03/21 23:46 23:50 00:00 Pulse Rate 133 H 133 H 131 H Respiratory 28 H 34 H 33 H Rate Blood Pressure 173/114 173/114 118/63 O2 Sat by Pulse 100 100 100 Oximetry 04/03/21 04/03/21 04/03/21 00:16 00:30 00:46 Pulse Rate 138 H Respiratory 39 H 38 H 38 H Rate Blood Pressure 140/68 149/121 134/65 O2 Sat by Pulse 100 Oximetry 04/03/21 04/03/21 04/03/21 01:00 01:16 01:30 Pulse Rate Respiratory 38 H Rate Blood Pressure 141/80 127/86 127/86 O2 Sat by Pulse 100 99 Oximetry 04/03/21 04/03/21 04/03/21 01:46 02:00 02:15 Pulse Rate Respiratory Rate Blood Pressure 141/80 125/74 121/69 O2 Sat by Pulse 99 100 Oximetry 04/03/21 04/03/21 04/03/21 02:30 02:46 03:00 Pulse Rate Respiratory Rate Blood Pressure 141/45 121/69 136/73 O2 Sat by Pulse 100 100 100 Oximetry 04/03/21 04/03/21 04/03/21 03:16 03:30 03:46 Pulse Rate Respiratory 34 H 36 H Rate Blood Pressure 140/76 144/115 140/76 O2 Sat by Pulse 100 100 100 Oximetry 04/03/21 04/03/21 04/03/21 04:00 04:16 04:30 Pulse Rate 120 H Respiratory 36 H 27 H Rate Blood Pressure 126/42 137/80 116/38 O2 Sat by Pulse 100 100 Oximetry 04/03/21 04/03/21 04/03/21 04:46 05:00 05:16 Pulse Rate 117 H 122 H 127 H Respiratory 28 H 42 H 49 H Rate Blood Pressure 116/38 125/66 125/66 O2 Sat by Pulse 100 99 Oximetry 04/03/21 04/03/21 04/03/21 05:30 05:46 06:00 Pulse Rate 128 H Respiratory 38 H 27 H 48 H Rate Blood Pressure 125/66 125/66 135/66 O2 Sat by Pulse 100 Oximetry 04/03/21 04/03/21 04/03/21 06:16 06:30 06:46 Pulse Rate 127 H Respiratory 41 H 39 H 23 Rate Blood Pressure 135/66 135/66 135/66 O2 Sat by Pulse 100 Oximetry 04/03/21 04/03/21 04/03/21 07:00 07:16 07:30 Pulse Rate 129 H 127 H 128 H Respiratory 25 H 52 H 28 H Rate Blood Pressure 130/79 130/79 130/79 O2 Sat by Pulse 100 100 100 Oximetry 04/03/21 04/03/21 07:46 08:00 Pulse Rate 126 H 128 H Respiratory 25 H 44 H Rate Blood Pressure 130/79 134/80 O2 Sat by Pulse 98 96 Oximetry - Lab 04/02/21 07:09 04/03/21 05:03 Most recent lab results ABG pH 6.657 (7.320-7.450) L 04/02/21 10:02 ABG O2 Saturation 96.9 (0-100) 04/02/21 10:02 Calcium 7.1 mg/dL (8.4-10.2) L 04/03/21 05:03 Magnesium 3.50 mg/dL (1.7-2.3) H 04/02/21 07:09 Medications & Allergies - Medications Allergies/Adverse Reactions: Allergies No Known Allergies Allergy (Unverified 04/02/21 05:40) Active Medications: Generic Name Dose Route Start Last Admin Trade Name Freq PRN Reason Stop Dose Admin Dextrose 50 ml 04/02/21 06:54 Dextrose 50% In Water (25gm) 50 Ml Syringe IV Q30MIN PRN Hypoglycemia Protocol Sodium Chloride 100 mls @ 999 mls/hr 04/02/21 10:01 Nacl 0.9% IV DIMPLE PRN Hypotension Sodium Bicarbonate 150 meq/ 1,150 mls @ 100 mls/hr 04/02/21 11:00 04/02/21 12:05 Sterile Water IV 100 mls/hr DIRECT MARIAH Administration Norepinephrine 4 mg in 250 mls @ 7.5 mls/hr 04/02/21 12:00 04/03/21 01:53 Levophed Drip 4 Mg/Ns 250 Ml IV 7 mcg/min TITR MARIAH 26.25 mls/hr Administration Protocol 2 MCG/MIN Vasopressin 20 unit/ Sodium 101 mls @ 9.09 mls/hr 04/02/21 12:00 04/02/21 17:36 Chloride IV 0 units/min TITR MARIAH 0 mls/hr Titration Protocol 0.03 UNITS/MIN Lorazepam 2 mg 04/02/21 06:55 04/02/21 23:05 Lorazepam 2 Mg/Ml Vial IM 2 mg Q4HR PRN Administration Agitation Ondansetron HCl 4 mg 04/02/21 06:53 Ondansetron 4 Mg/2 Ml Inj IV Q4H PRN Nausea And Vomiting
--- NOTE | 2021-04-03 09:00 | Procedure Note ---
Date of procedure: 04/02/21 Pre-op diagnosis: Severe Metabolic acidosis needing Dialysis Post-op diagnosis: same Procedure: RIJ Trialysis catheter placement (Full dictation # [id number]) Please see dictated notes for full details
--- NOTE | 2021-04-03 09:02 | Progress Note ---
Assessment and Plan Acute toxic metabolic encephalopathy Severe metabolic acidosis Acute kidney injury Leukocytosis Anemia that is microcytic Likely alcohol abuse Hyperkalemia Elevated serum transaminase Alcohol intoxication (suspect she's devloping pulmonary edema but tachypnea mostly driven by metabolic acidosis as she is having to blow her pCO2 down to 17 to compensate) - continue bicarbonate drip but reduce to 75m/'s/hr X 1 liter and re-evaluate - push 1 amp NaHCO3 X 1 also - high osmolal gap noted; continue HD/UF per nephrology prescription for toxin and volume clearance - prn supplemental oxygen to keep O2 sats > 90% - wean vasopressors for target MAP > 65 mmHg (on hold now) - prn bronchodilators (JOSE J) with pulm hygiene per RT - continue to avoid nephrotoxins, renally dose all medications - mobility protocols to prevent pressure ulcers - PT/OT as tolerated - accuchecks with glycemic control per SSI for target blood glucose < 180 mg/dL - tobacco abstinence strongly counseled at the bedside - home oxygen evaluation at discharge - GI & VTE prophylaxis - Flu & pneumovax per protocol - prn analgesia per pain score - continue other care per attending / other consultants ... re-evaluate in am & prn Subjective Date of service: 04/03/21 Principal diagnosis: Ac encephalopathy; Severe Met. Acidosis; KENYATTA; Hyperkalemia; EtOH OD Interval history: Patient is seen today for: Acute toxic metabolic encephalopathy; Severe metabolic acidosis; KENYATTA; Leukocytosis; Hyperkalemia; Alcohol intoxication Seen and examined at bedside; 24hour events reviewed; nursing and respiratory care staff consulted; no adverse overnight events reported to me; resting in bed; still with tachypnea and moderately labored breathing; she denies chest pain; she is alert; No N/V/F/C Objective Vital Signs - 12hr 04/02/21 04/02/21 04/02/21 21:16 21:30 21:46 Pulse Rate 145 H 144 H 143 H Respiratory 25 H 33 H 34 H Rate Blood Pressure 147/118 111/66 132/77 O2 Sat by Pulse 100 100 100 Oximetry 04/02/21 04/02/21 04/02/21 22:00 22:16 22:30 Pulse Rate 143 H 144 H 144 H Respiratory 39 H 38 H 29 H Rate Blood Pressure 123/73 132/77 106/48 O2 Sat by Pulse 100 Oximetry 04/02/21 04/02/21 04/02/21 22:46 23:00 23:16 Pulse Rate 143 H 141 H 142 H Respiratory 39 H 33 H 29 H Rate Blood Pressure 79/47 134/78 135/72 O2 Sat by Pulse Oximetry 04/02/21 04/02/21 04/02/21 23:30 23:46 23:50 Pulse Rate 142 H 133 H 133 H Respiratory 33 H 28 H 34 H Rate Blood Pressure 131/76 173/114 173/114 O2 Sat by Pulse 100 100 100 Oximetry 04/03/21 04/03/21 04/03/21 00:00 00:16 00:30 Pulse Rate 131 H 138 H Respiratory 33 H 39 H 38 H Rate Blood Pressure 118/63 140/68 149/121 O2 Sat by Pulse 100 100 Oximetry 04/03/21 04/03/21 04/03/21 00:46 01:00 01:16 Pulse Rate Respiratory 38 H 38 H Rate Blood Pressure 134/65 141/80 127/86 O2 Sat by Pulse 100 Oximetry 04/03/21 04/03/21 04/03/21 01:30 01:46 02:00 Pulse Rate Respiratory Rate Blood Pressure 127/86 141/80 125/74 O2 Sat by Pulse 99 99 100 Oximetry 04/03/21 04/03/21 04/03/21 02:15 02:30 02:46 Pulse Rate Respiratory Rate Blood Pressure 121/69 141/45 121/69 O2 Sat by Pulse 100 100 Oximetry 04/03/21 04/03/21 04/03/21 03:00 03:16 03:30 Pulse Rate Respiratory 34 H Rate Blood Pressure 136/73 140/76 144/115 O2 Sat by Pulse 100 100 100 Oximetry 04/03/21 04/03/21 04/03/21 03:46 04:00 04:16 Pulse Rate Respiratory 36 H 36 H Rate Blood Pressure 140/76 126/42 137/80 O2 Sat by Pulse 100 100 100 Oximetry 04/03/21 04/03/21 04/03/21 04:30 04:46 05:00 Pulse Rate 120 H 117 H 122 H Respiratory 27 H 28 H 42 H Rate Blood Pressure 116/38 116/38 125/66 O2 Sat by Pulse 100 99 Oximetry 04/03/21 04/03/21 04/03/21 05:16 05:30 05:46 Pulse Rate 127 H 128 H Respiratory 49 H 38 H 27 H Rate Blood Pressure 125/66 125/66 125/66 O2 Sat by Pulse 100 Oximetry 04/03/21 04/03/21 04/03/21 06:00 06:16 06:30 Pulse Rate Respiratory 48 H 41 H 39 H Rate Blood Pressure 135/66 135/66 135/66 O2 Sat by Pulse Oximetry 04/03/21 04/03/21 04/03/21 06:46 07:00 07:16 Pulse Rate 127 H 129 H 127 H Respiratory 23 25 H 52 H Rate Blood Pressure 135/66 130/79 130/79 O2 Sat by Pulse 100 100 100 Oximetry 04/03/21 04/03/21 04/03/21 07:30 07:46 08:00 Pulse Rate 128 H 126 H 128 H Respiratory 28 H 25 H 44 H Rate Blood Pressure 130/79 130/79 134/80 O2 Sat by Pulse 100 98 96 Oximetry Constitutional: no acute distress Eyes: non-icteric ENT: oropharynx moist Neck: supple, no lymphadenopathy, no JVD Effort: mildly labored (moderately) Ascultation: Bilateral: rhonchi (bases) Percussion: Bilateral: not dull Cardiovascular: regular rate and rhythm Gastrointestinal: normoactive bowel sounds, soft, non-tender, non-distended Integumentary: normal Extremities: no cyanosis, no edema, pulses normal, no ischemia or petechiae Neurologic: non-focal exam, pupils equal and round, CN II-XII normal, motor strength normal and Psychiatric: mood appropriate, affect normal CBC and BMP: 04/02/21 07:09 04/03/21 05:03 ABG, PT/INR, D-dimer: ABG ABG pH 6.657 (7.320-7.450) L 04/02/21 10:02 POC ABG pCO2 16.1 mmHg (32.0-48.0) L 04/02/21 10:02 POC ABG pO2 142.3 mmHg (83-108) H 04/02/21 10:02 POC ABG HCO3 1.8 04/02/21 10:02 ABG O2 Saturation 96.9 (0-100) 04/02/21 10:02 Abnormal lab findings: Abnormal Labs 04/02/21 04/02/21 04/02/21 07:09 07:09 07:09 WBC 17.9 H RBC 3.57 L Hgb 9.6 L MCV 100 H MCH 27 L MCHC 27 L RDW 26.9 H Lymph % (Auto) 37.5 H Eos % (Auto) 6.2 H Baso % (Auto) 1.9 H Eos # (Auto) 0.5 H Baso # (Auto) 0.2 H Seg Neuts % (Manual) 85.0 H Lymphocytes % (Manual) 7.0 L Seg Neutrophils # Man 15.2 H ABG pH POC ABG pCO2 POC ABG pO2 ABG Hemoglobin ABG Sodium ABG Potassium ABG Glucose Sodium Potassium 5.3 H Chloride 92.2 L Carbon Dioxide 2 L* BUN Creatinine 1.8 H Glucose POC Glucose Lactic Acid Calcium 11.1 H Magnesium 3.50 H AST 202 H Lipase Arterial Blood Glucose Arterial Blood Ionized Calcium Salicylates < 0.3 L Acetaminophen Plasma/Serum Alcohol 04/02/21 04/02/21 04/02/21 07:09 07:09 07:09 WBC RBC Hgb MCV MCH MCHC RDW Lymph % (Auto) Eos % (Auto) Baso % (Auto) Eos # (Auto) Baso # (Auto) Seg Neuts % (Manual) Lymphocytes % (Manual) Seg Neutrophils # Man ABG pH POC ABG pCO2 POC ABG pO2 ABG Hemoglobin ABG Sodium ABG Potassium ABG Glucose Sodium Potassium Chloride Carbon Dioxide BUN Creatinine Glucose POC Glucose Lactic Acid Calcium Magnesium AST Lipase 448 H Arterial Blood Glucose Arterial Blood Ionized Calcium Salicylates Acetaminophen 5.0 L Plasma/Serum Alcohol 0.13 H 04/02/21 04/02/21 04/02/21 10:02 12:18 12:31 WBC RBC Hgb MCV MCH MCHC RDW Lymph % (Auto) Eos % (Auto) Baso % (Auto) Eos # (Auto) Baso # (Auto) Seg Neuts % (Manual) Lymphocytes % (Manual) Seg Neutrophils # Man ABG pH 6.657 L POC ABG pCO2 16.1 L POC ABG pO2 142.3 H ABG Hemoglobin 9.7 L ABG Sodium 116.9 L ABG Potassium 5.4 H ABG Glucose 100 H Sodium Potassium Chloride Carbon Dioxide BUN Creatinine Glucose POC Glucose 124 H 112 H Lactic Acid Calcium Magnesium AST Lipase Arterial Blood Glucose 100 H Arterial Blood Ionized Calcium 5.4 H Salicylates Acetaminophen Plasma/Serum Alcohol 04/02/21 04/02/21 04/02/21 13:09 13:09 17:46 WBC RBC Hgb MCV MCH MCHC RDW Lymph % (Auto) Eos % (Auto) Baso % (Auto) Eos # (Auto) Baso # (Auto) Seg Neuts % (Manual) Lymphocytes % (Manual) Seg Neutrophils # Man ABG pH POC ABG pCO2 POC ABG pO2 ABG Hemoglobin ABG Sodium ABG Potassium ABG Glucose Sodium Potassium 5.9 H Chloride 97.9 L 95.4 L Carbon Dioxide 6 L* 16 L D BUN 5 L Creatinine Glucose 146 H 119 H POC Glucose Lactic Acid 11.00 H* Calcium 7.8 L Magnesium AST Lipase Arterial Blood Glucose Arterial Blood Ionized Calcium Salicylates Acetaminophen Plasma/Serum Alcohol 04/02/21 04/02/21 04/03/21 17:46 23:04 05:03 WBC RBC Hgb MCV MCH MCHC RDW Lymph % (Auto) Eos % (Auto) Baso % (Auto) Eos # (Auto) Baso # (Auto) Seg Neuts % (Manual) Lymphocytes % (Manual) Seg Neutrophils # Man ABG pH POC ABG pCO2 POC ABG pO2 ABG Hemoglobin ABG Sodium ABG Potassium ABG Glucose Sodium 135 L Potassium Chloride 92.5 L 88.9 L Carbon Dioxide 12 L 11 L BUN Creatinine 1.8 H Glucose 141 H 170 H POC Glucose Lactic Acid 4.40 H* Calcium 7.5 L 7.1 L Magnesium AST Lipase Arterial Blood Glucose Arterial Blood Ionized Calcium Salicylates Acetaminophen Plasma/Serum Alcohol Chest x-ray: image reviewed (increased bilateral edema / infiltrates) Allied health notes reviewed: nursing
--- NOTE | 2021-04-03 09:16 | Operative Report ---
DATE OF SURGERY: 04/02/2021 PROCEDURE: Right internal jugular Trialysis catheter placement for dialysis. INDICATIONS: Severe metabolic acidosis, needing dialysis. CONSENT: This was an emergent procedure. No family was listed. The patient had an altered mental status and was with severe metabolic acidosis and becoming hypotensive. COMPLICATIONS: No immediate procedural complications. PROCEDURE DETAILS: As follows: After premedication, which really consisted only of verbal encouragement and trying to encourage her in a delirious state as well as generous local anesthetic agents. The right internal jugular vein was cannulated under direct visualization with the ultrasound probe, all in strict sterile conditions including a sterile probe cover, full barrier protection, sterile hats, gloves, gown, mask. The right IJ was noted. It is easily compressible. It was assessed on the first stick. A good looking venous blood return was obtained. The patient was in Trendelenburg position throughout the whole procedure. The wire was threaded through the needle and a catheter was advanced over the wire at 20 cm, Trialysis catheter was sutured in place. Again, good looking venous blood was aspirated and then flushed. A post-procedure chest x-ray has been done. No pneumothorax. No immediate procedural complications. The right IJ is in good position and good to use. TID: [id number] RECEIPT: [id number] JOSUÉ/MELISSA
--- NOTE | 2021-04-03 11:39 | Consultation ---
History of Present Illness - Reason for Consult Consult date: 04/03/21 Reason for consult: Alcohol intoxication - Chief Complaint Chief complaint: Altered mental status - History of Present Psychiatric Illness Per ED Note: This is a 35-year-old female. She is not known to myself previously. She appears to be visiting from [place]. The details of her past medical history and context of her arrival to this emergency room are unclear. As per nursing documentation, the patient consumed quite a bit of alcohol today, may have mentioned something about suicidality, and also complained of abdominal pain. There is also documentation of a possible recent colonoscopy. The patient herself is altered. The patient moves 4 extremities. The patient would not answer my open ended or close ended questions. Nursing team reports that the patient was moving 4 extremities spontaneously. They also report that the patient really wouldn't follow commands. Additional history is not available at this time. Patient herself is altered, and not able to describe the qualitative nature of symptoms, exacerbating factor s, relieving factors, or aggravating factors. Allyn Wilder is a 35 year old female with unknown psychiatric diagnosis who presents to the ED with altered mental mental status. In my interview with the patient, she denies having any prior psychiatric diagnosis. The patient states she lives in [place], [place] with her parents stating " I had a mental breakdown, I had some liquor." The patient is unable to state the quantity of alcohol she consumed and reports not being able recall how she got to the ED. The patient is currently on 2 points restraint. She denies any current suicidal/homicidal ideation and denies hallucinations. PAST PSYCHIATRIC HISTORY: Diagnoses: Denies Suicide attempts or Self-harm behavior: Denies Prior psychiatric hospitalizations: Denies Substance Abuse history: Alcohol Previous psychiatric medications tried: Unknown PAST MEDICAL HISTORY: None reported or document Family Psychiatric History: None reported or documented SOCIAL HISTORY Marital Status: Single Living Arrangements: Lives with parents Employment Status:unemployed Access to guns/weapons: Yes Education: 12th grade History of Abuse:Denies Legal History: Denies REVIEW OF SYSTEMS Constitutional: Negative for weight loss ENT: Negative for stridor Respiratory: Negative for cough or hemoptysis All other systems reviewed and are negative MENTAL STATUS EXAMINATION General Appearance and Behavior: Age appropriate, good hygiene, wearing appropriate clothes. Cooperation: Cooperative Psychomotor Behavior: Psychomotor normal Mood: OK Affect and affective range: incongruent with stated mood Thought Process: Confused Thought Content: Not SI Speech: high volume, increased rate and pressured Suicidal Ideation: Denies Homicidal Ideation: Denies Hallucinations: Denies Delusions: None elicited Impulse Control: Questionable Insight and Judgment: Limited Memory: Limited Attention: Distractible Orientation: alert and oriented Assessment and Plan (1) Alcohol use Disorder Current Visit: Yes Status: Acute Continue 1013 Continue [facility] protocol Treatment Plan Restarted home medications: Sitter: Per primary Medical: Per primary Disposition: Recommend inpatient admission Will follow. Thanks Case staffed with Dr. Guadarrama Medications and Allergies Allergies Allergy/AdvReac Type Severity Reaction Status Date / Time No Known Allergies Allergy Unverified 04/02/21 05:40 Active Meds: Active Medications Dextrose (Dextrose 50% In Water (25gm) 50 Ml Syringe) 50 ml IV Q30MIN PRN; Protocol PRN Reason: Hypoglycemia Sodium Chloride (Nacl 0.9%) 100 mls @ 999 mls/hr IV DIMPLE PRN PRN Reason: Hypotension Sodium Bicarbonate 150 meq/ (Sterile Water) 1,150 mls @ 100 mls/hr IV DIRECT MARIAH Last Admin: 04/02/21 12:05 Dose: 100 mls/hr Documented by: Norepinephrine (Levophed Drip 4 Mg/Ns 250 Ml) 4 mg in 250 mls @ 7.5 mls/hr IV TITR MARIAH; Protocol Last Admin: 04/03/21 01:53 Dose: 7 mcg/min, 26.25 mls/hr Documented by: Vasopressin 20 unit/ Sodium (Chloride) 101 mls @ 9.09 mls/hr IV TITR MARIAH; Protocol Last Titration: 04/02/21 17:36 Dose: 0 units/min, 0 mls/hr Documented by: Lorazepam (Lorazepam 2 Mg/Ml Vial) 2 mg IM Q4HR PRN PRN Reason: Agitation Last Admin: 04/02/21 23:05 Dose: 2 mg Documented by: Ondansetron HCl (Ondansetron 4 Mg/2 Ml Inj) 4 mg IV Q4H PRN PRN Reason: Nausea And Vomiting Mental Status Exam - Vital signs Last Vital Signs Temp 97.9 F 04/02/21 17:15 Pulse 125 H 04/03/21 10:16 Resp 23 04/03/21 10:16 BP 139/83 04/03/21 10:16 Pulse Ox 100 04/03/21 10:16 Results Result Diagrams: 04/02/21 07:09 04/03/21 05:03 Abnormal lab results 04/02/21 04/02/21 04/02/21 Range/Units 07:09 12:18 12:31 Lymph % (Auto) 37.5 H (13.4-35.0) % Eos % (Auto) 6.2 H (0.0-4.3) % Baso % (Auto) 1.9 H (0.0-1.8) % Eos # (Auto) 0.5 H (0.0-0.4) K/mm3 Baso # (Auto) 0.2 H (0.0-0.1) K/mm3 Seg Neuts % (Manual) 85.0 H (40.0-70.0) % Lymphocytes % (Manual) 7.0 L (13.4-35.0) % Seg Neutrophils # Man 15.2 H (1.8-7.7) K/mm3 Sodium (137-145) mmol/L Potassium (3.6-5.0) mmol/L Chloride (98-107) mmol/L Carbon Dioxide (22-30) mmol/L BUN (7-17) mg/dL Creatinine (0.6-1.2) mg/dL Glucose (65-100) mg/dL POC Glucose 124 H 112 H (70-105) mg/dL Lactic Acid (0.7-2.0) mmol/L Calcium (8.4-10.2) mg/dL 04/02/21 04/02/21 04/02/21 Range/Units 13:09 13:09 17:46 Lymph % (Auto) (13.4-35.0) % Eos % (Auto) (0.0-4.3) % Baso % (Auto) (0.0-1.8) % Eos # (Auto) (0.0-0.4) K/mm3 Baso # (Auto) (0.0-0.1) K/mm3 Seg Neuts % (Manual) (40.0-70.0) % Lymphocytes % (Manual) (13.4-35.0) % Seg Neutrophils # Man (1.8-7.7) K/mm3 Sodium (137-145) mmol/L Potassium 5.9 H (3.6-5.0) mmol/L Chloride 97.9 L 95.4 L (98-107) mmol/L Carbon Dioxide 6 L* 16 L D (22-30) mmol/L BUN 5 L (7-17) mg/dL Creatinine (0.6-1.2) mg/dL Glucose 146 H 119 H (65-100) mg/dL POC Glucose (70-105) mg/dL Lactic Acid 11.00 H* (0.7-2.0) mmol/L Calcium 7.8 L (8.4-10.2) mg/dL 04/02/21 04/02/21 04/03/21 Range/Units 17:46 23:04 05:03 Lymph % (Auto) (13.4-35.0) % Eos % (Auto) (0.0-4.3) % Baso % (Auto) (0.0-1.8) % Eos # (Auto) (0.0-0.4) K/mm3 Baso # (Auto) (0.0-0.1) K/mm3 Seg Neuts % (Manual) (40.0-70.0) % Lymphocytes % (Manual) (13.4-35.0) % Seg Neutrophils # Man (1.8-7.7) K/mm3 Sodium 135 L (137-145) mmol/L Potassium (3.6-5.0) mmol/L Chloride 92.5 L 88.9 L (98-107) mmol/L Carbon Dioxide 12 L 11 L (22-30) mmol/L BUN (7-17) mg/dL Creatinine 1.8 H (0.6-1.2) mg/dL Glucose 141 H 170 H (65-100) mg/dL POC Glucose (70-105) mg/dL Lactic Acid 4.40 H* (0.7-2.0) mmol/L Calcium 7.5 L 7.1 L (8.4-10.2) mg/dL All other labs normal.
[2021-04-03] MEDS ORDERED: D5W/0.9% NACL 1,000 ML IV SCH (13:00)
[2021-04-03] MEDS ORDERED: SODIUM CHLORIDE 0.9% 100 ML IV PRN (13:04)
--- NOTE | 2021-04-03 14:04 | XRay Report ---
CHEST 1 VIEW 04/03/2021 1:49 PM INDICATION / CLINICAL INFORMATION: sob. COMPARISON: 04/02/21 FINDINGS: SUPPORT DEVICES: Right jugular Vas-Cath is unchanged. HEART / MEDIASTINUM: Stable. LUNGS / PLEURA: Patchy bilateral pulmonary opacities have increased slightly. No pneumothorax. ADDITIONAL FINDINGS: No significant additional findings. IMPRESSION: 1. Slight worsening of patchy bilateral pulmonary opacities. Signer Name: Peyman Siddiqui MD Signed: 04/03/2021 1:59 PM Workstation Name: [id number]
[2021-04-03] MEDS ORDERED: SODIUM BICARB 8.4% 50 MEQ/50 ML SYRINGE IV SCH (16:00)
[2021-04-03] MEDS ORDERED: SODIUM BICARBONATE 2 MEQ/2 ML SYRINGE IV STA (16:03)
[2021-04-03] MEDS ORDERED: SODIUM BICARBONATE 150 MEQ in DEXTROSE 5% IN WATER 1,000 ML IV SCH (17:00)
--- NOTE | 2021-04-03 17:17 | Progress Note ---
Assessment and Plan Acute toxic metabolic encephalopathy Alcohol intoxication Severe metabolic acidosis KENYATTA likely ATN Hyperkalemia Macrocytic anemia Bilateral pneumonia Daily clinical course and mx: 04/03/21 -Admitted patient to ICU -Monitor with frequent neuro checks, patient remains on restraint -Continue CIWA protocol, nephrology consulted -s/p emergent hemodialysis, Vas-Cath has been placed -Follow clinically, monitor H&H -Initiate antibiotics for possible bacterial pneumonia, ordered 2D echo The high probability of a clinically significant, sudden or life threatening deterioration of the [multiple] system(s) required my full and direct attention, intervention and personal management. The aggregate critical care time was [55] minutes. This time is in addition to time spent performing reported procedures but includes the following: [x] Data Review and interpretation [x] Patient assessment and monitoring of vital signs [x] Documentation [x] Medication orders and management Subjective Date of service: 04/03/21 Principal diagnosis: Ac encephalopathy; Severe Met. Acidosis; KENYATTA; Hyperkalemia; EtOH OD Objective - Constitutional Vitals: Vital Signs - 12hr 04/03/21 04/03/21 04/03/21 05:30 05:46 06:00 Pulse Rate 128 H Respiratory 38 H 27 H 48 H Rate Blood Pressure 125/66 125/66 135/66 O2 Sat by Pulse 100 Oximetry 04/03/21 04/03/21 04/03/21 06:16 06:30 06:46 Pulse Rate 127 H Respiratory 41 H 39 H 23 Rate Blood Pressure 135/66 135/66 135/66 O2 Sat by Pulse 100 Oximetry 04/03/21 04/03/21 04/03/21 07:00 07:16 07:30 Pulse Rate 129 H 127 H 128 H Respiratory 25 H 52 H 28 H Rate Blood Pressure 130/79 130/79 130/79 O2 Sat by Pulse 100 100 100 Oximetry 04/03/21 04/03/21 04/03/21 07:46 08:00 08:16 Pulse Rate 126 H 128 H 126 H Respiratory 25 H 44 H 49 H Rate Blood Pressure 130/79 134/80 134/80 O2 Sat by Pulse 98 96 99 Oximetry 04/03/21 04/03/21 04/03/21 08:30 08:46 09:00 Pulse Rate 127 H 126 H 124 H Respiratory 36 H 49 H 35 H Rate Blood Pressure 134/80 134/80 143/76 O2 Sat by Pulse 100 100 91 Oximetry 04/03/21 04/03/21 04/03/21 09:16 09:30 09:46 Pulse Rate 120 H 120 H 120 H Respiratory 41 H 41 H 41 H Rate Blood Pressure 143/76 143/76 143/76 O2 Sat by Pulse 85 90 96 Oximetry 04/03/21 04/03/21 10:00 10:16 Pulse Rate 126 H 125 H Respiratory 51 H 23 Rate Blood Pressure 139/83 139/83 O2 Sat by Pulse 100 100 Oximetry - Labs CBC & Chem 7: 04/07/21 05:03 04/08/21 06:12 Labs: Abnormal lab results 04/02/21 04/02/21 04/02/21 Range/Units 13:09 17:46 17:46 POC ABG pCO2 (32.0-48.0) mmHg POC ABG pO2 (83-108) mmHg ABG Hemoglobin (12.0-17.5) ABG Sodium (136.0-145.0) mmol/L ABG Chloride (98-107) mmol/L ABG Glucose (65-95) mg/dL Sodium (137-145) mmol/L Potassium 5.9 H (3.6-5.0) mmol/L Chloride 97.9 L 95.4 L (98-107) mmol/L Carbon Dioxide 6 L* 16 L D (22-30) mmol/L BUN 5 L (7-17) mg/dL Creatinine (0.6-1.2) mg/dL Glucose 146 H 119 H (65-100) mg/dL Lactic Acid 4.40 H* (0.7-2.0) mmol/L Calcium 7.8 L (8.4-10.2) mg/dL Arterial Blood Glucose (65-95) mg/dL Arterial Blood Ionized Calcium (4.6-5.3) mg/dL 04/02/21 04/03/21 04/03/21 Range/Units 23:04 05:03 13:09 POC ABG pCO2 17.5 L (32.0-48.0) mmHg POC ABG pO2 110.2 H (83-108) mmHg ABG Hemoglobin 9.6 L (12.0-17.5) ABG Sodium 127.7 L (136.0-145.0) mmol/L ABG Chloride 97.0 L (98-107) mmol/L ABG Glucose 164 H (65-95) mg/dL Sodium 135 L (137-145) mmol/L Potassium (3.6-5.0) mmol/L Chloride 92.5 L 88.9 L (98-107) mmol/L Carbon Dioxide 12 L 11 L (22-30) mmol/L BUN (7-17) mg/dL Creatinine 1.8 H (0.6-1.2) mg/dL Glucose 141 H 170 H (65-100) mg/dL Lactic Acid (0.7-2.0) mmol/L Calcium 7.5 L 7.1 L (8.4-10.2) mg/dL Arterial Blood Glucose 164 H (65-95) mg/dL Arterial Blood Ionized Calcium 4.3 L (4.6-5.3) mg/dL
[2021-04-03 17:34] LABS: Hematocrit 22.2 % (30.3-42.9); Hemoglobin 6.8 gm/dl (10.1-14.3); Mean Corpuscular HGB Conc 31 % (30-34); Mean Corpuscular Volume 88 fl (79-97); Red Blood Count 2.53 M/mm3 (3.65-5.03)
[2021-04-03] MEDS ORDERED: cefTRIAXone/NS 2 GM/100 ML 2 GM/100 ML BAG IV SCH (18:00)
[2021-04-03 18:08] LABS: Platelet Count 71 K/mm3 (140-440); Red Cell Distribution Width 27.5 % (13.2-15.2)
[2021-04-03] MEDS ORDERED: SODIUM CHLORIDE 0.9% 500 ML 500 ML IV ONE (21:45)
[2021-04-03] MEDS: AZITHROMYCIN/NS 500 MG/250 ML 500 MG/250 ML BAG IV SCH (22:10)
[2021-04-03] MEDS: LORazepam 2 MG/ML VIAL IM PRN (23:49)
[2021-04-03] MEDS: ALBUTEROL 2.5 MG/3 ML NEBU IH SCH (23:58)
[2021-04-04] MEDS: ALBUTEROL 2.5 MG/3 ML NEBU IH SCH ×4 (02:24→20:38)
[2021-04-04 07:57] LABS: Hematocrit 26.4 % (30.3-42.9); Hemoglobin 8.6 gm/dl (10.1-14.3); Mean Corpuscular HGB Conc 32 % (30-34); Mean Corpuscular Volume 85 fl (79-97)
[2021-04-04 08:02] LABS: Platelet Count 63 K/mm3 (140-440)
[2021-04-04 08:10] LABS: Calcium 8.7 mg/dL (8.4-10.2)
--- NOTE | 2021-04-04 08:50 | Progress Note ---
Subjective Principal diagnosis: Ac encephalopathy; Severe Met. Acidosis; KENYATTA; Hyperkalemia; EtOH OD Interval history: Patient was seen today for follow-up of multiple renal related issues, has had her second dialysis treatment yesterday currently her creatinine is 1.3 acidosis has corrected now bicarb is 29 Potassium however is three-point No complaints of any chest pain pressure or shortness of breath Interdisciplinary notes that also reviewed Events of 24 hours vitals labs intake output medications were reviewed Past medical history: Reviewed Family history: Reviewed Social history: Reviewed Allergies: Reviewed Physical examination: Vitals: Reviewed HEENT: No pallor or icterus oral mucosa moist Neck: Supple no JVD no thyromegaly Chest: Bilateral basilar crackles Heart: Regular rate and rhythm S1-S2 heard no S3-S4 Abdomen: Soft nontender no voluntary guarding rigidity rebound Extremity: Dry skin less than 1+ peripheral edema Psychiatric: No evidence of agitation and aggression noted Dermatology: No petechial rashes Labs and x-rays: Reviewed from today Assessment and plan Renal failure, with severe metabolic acidosis anion gap in a patient who presented to the ER with confusion, Has had to dialysis treatment, currently pending ethylene glycol level, #Hypokalemia replace and follow #Encephalopathy? Due to alcohol withdrawal? Rule out toxic metabolic causes #Bilateral pulmonary infiltrates ? Pneumonia? Fluid? Rule out any viral infection Would recommend repeating Covid PCR #History of alcohol abuse currently and 1013 status as well as [facility] protocol Patient was adequately counseled and educated regarding all the renal related issues Laboratory studies, have been explained to the patient All questions were answered and simple [place] We'll continue to follow and make recommendation for renal standpoint Objective - Vital Signs Vital signs: Vital Signs - 12hr 04/03/21 04/03/21 04/03/21 21:00 21:30 21:32 Temperature Pulse Rate 128 H 122 H Pulse Rate [ Anterior Bilateral] Respiratory 64 H 45 H Rate Blood Pressure 147/88 141/58 O2 Sat by Pulse 85 98 94 Oximetry 04/03/21 04/03/21 04/03/21 22:30 23:00 23:30 Temperature Pulse Rate 128 H 121 H 134 H Pulse Rate [ Anterior Bilateral] Respiratory 46 H 35 H 61 H Rate Blood Pressure 165/102 139/86 132/92 O2 Sat by Pulse 99 99 94 Oximetry 04/03/21 04/04/21 04/04/21 23:55 00:00 00:30 Temperature Pulse Rate 119 H 121 H Pulse Rate [ 127 H Anterior Bilateral] Respiratory 51 H 36 H Rate Blood Pressure 132/96 119/74 O2 Sat by Pulse 99 100 98 Oximetry 04/04/21 04/04/21 04/04/21 00:50 01:00 01:08 Temperature 98.6 F Pulse Rate 122 H 123 H Pulse Rate [ Anterior Bilateral] Respiratory 38 H 44 H Rate Blood Pressure 124/73 116/70 O2 Sat by Pulse 100 98 Oximetry 04/04/21 04/04/21 04/04/21 01:10 01:20 01:26 Temperature 98.6 F Pulse Rate 125 H 133 H 122 H Pulse Rate [ Anterior Bilateral] Respiratory 47 H 33 H 42 H Rate Blood Pressure 140/86 124/73 126/55 O2 Sat by Pulse 99 96 99 Oximetry 04/04/21 04/04/21 04/04/21 01:30 01:40 01:50 Temperature Pulse Rate 123 H 123 H 126 H Pulse Rate [ Anterior Bilateral] Respiratory 46 H 48 H 47 H Rate Blood Pressure 126/55 129/64 129/64 O2 Sat by Pulse 98 98 98 Oximetry 04/04/21 04/04/21 04/04/21 02:00 02:10 02:20 Temperature Pulse Rate 118 H 117 H 118 H Pulse Rate [ Anterior Bilateral] Respiratory 43 H 39 H 39 H Rate Blood Pressure 119/59 116/50 116/50 O2 Sat by Pulse 98 99 99 Oximetry 04/04/21 04/04/21 04/04/21 02:30 02:40 02:50 Temperature Pulse Rate 116 H 129 H 122 H Pulse Rate [ Anterior Bilateral] Respiratory 40 H 55 H 47 H Rate Blood Pressure 117/56 118/73 118/73 O2 Sat by Pulse 99 97 99 Oximetry 04/04/21 04/04/21 04/04/21 03:00 03:10 03:20 Temperature Pulse Rate 122 H 123 H 129 H Pulse Rate [ Anterior Bilateral] Respiratory 24 34 H 60 H Rate Blood Pressure 115/72 145/87 118/73 O2 Sat by Pulse 99 99 98 Oximetry 04/04/21 04/04/21 04/04/21 03:30 04:00 04:30 Temperature Pulse Rate 123 H 124 H 129 H Pulse Rate [ Anterior Bilateral] Respiratory 53 H 56 H 34 H Rate Blood Pressure 136/52 144/63 127/77 O2 Sat by Pulse 99 98 98 Oximetry 04/04/21 04/04/21 05:00 06:30 Temperature Pulse Rate 123 H Pulse Rate [ Anterior Bilateral] Respiratory 53 H 58 H Rate Blood Pressure 151/93 133/79 O2 Sat by Pulse 99 97 Oximetry - Lab 04/04/21 07:34 04/04/21 07:34 Most recent lab results ABG pH 7.359 (7.320-7.450) 04/03/21 13:09 ABG O2 Saturation 98.2 (0-100) 04/03/21 13:09 Calcium 8.7 mg/dL (8.4-10.2) D 04/04/21 07:34 Magnesium 3.50 mg/dL (1.7-2.3) H 04/02/21 07:09 Medications & Allergies - Medications Allergies/Adverse Reactions: Allergies No Known Allergies Allergy (Unverified 04/02/21 05:40) Active Medications: Generic Name Dose Route Start Last Admin Trade Name Freq PRN Reason Stop Dose Admin Albuterol 2.5 mg 04/03/21 12:15 04/04/21 04:24 Albuterol 2.5 Mg/3 Ml Nebu IH 2.5 mg Q4HRT MARIAH Administration Dextrose 50 ml 04/02/21 06:54 Dextrose 50% In Water (25gm) 50 Ml Syringe IV Q30MIN PRN Hypoglycemia Protocol Sodium Chloride 100 mls @ 999 mls/hr 04/02/21 10:01 Nacl 0.9% IV DIMPLE PRN Hypotension Norepinephrine 4 mg in 250 mls @ 7.5 mls/hr 04/02/21 12:00 04/03/21 01:53 Levophed Drip 4 Mg/Ns 250 Ml IV 7 mcg/min TITR MARIAH 26.25 mls/hr Administration Protocol 2 MCG/MIN Vasopressin 20 unit/ Sodium 101 mls @ 9.09 mls/hr 04/02/21 12:00 04/02/21 17:36 Chloride IV 0 units/min TITR MARIAH 0 mls/hr Titration Protocol 0.03 UNITS/MIN Sodium Bicarbonate 150 meq/ 1,150 mls @ 75 mls/hr 04/03/21 17:00 04/04/21 03:00 Dextrose IV 75 mls/hr DIRECT MARIAH Infusion Azithromycin 500 mg in 250 mls @ 250 mls/hr 04/03/21 18:00 04/03/21 22:10 Zithromax/Ns IV 250 mls/hr Q24H MARIAH Administration Ceftriaxone Sodium 2 gm in 100 mls @ 200 mls/hr 04/04/21 10:00 Rocephin/Ns 2 Gm/100 Ml IV Q12HR MARIAH Protocol Lorazepam 2 mg 04/02/21 06:55 04/03/21 23:49 Lorazepam 2 Mg/Ml Vial IM 2 mg Q4HR PRN Administration Agitation Ondansetron HCl 4 mg 04/02/21 06:53 Ondansetron 4 Mg/2 Ml Inj IV Q4H PRN Nausea And Vomiting
[2021-04-04 11:34] LABS: Total Cells Counted 100
[2021-04-04 11:35] LABS: Anisocytosis 2+; Band Neutrophils # (Manual) 0.6 K/mm3; Hypochromasia 1+; Platelet Estimate Consistent w Auto; Stomatocytes Few
--- NOTE | 2021-04-04 12:16 | Progress Note ---
Assessment and Plan Acute toxic metabolic encephalopathy Severe metabolic acidosis Acute kidney injury Leukocytosis Anemia that is microcytic Likely alcohol abuse Hyperkalemia Elevated serum transaminase Alcohol intoxication - continue bicarbonate supplementation - HD/UF per nephrology prescription for toxin and volume clearance - prn supplemental oxygen to keep O2 sats > 90% - wean vasopressors for target MAP > 65 mmHg (on hold now) - prn bronchodilators (JOSE J) with pulm hygiene per RT - continue to avoid nephrotoxins, renally dose all medications - mobility protocols to prevent pressure ulcers - PT/OT as tolerated - accuchecks with glycemic control per SSI for target blood glucose < 180 mg/dL - tobacco abstinence strongly counseled at the bedside - home oxygen evaluation at discharge - GI & VTE prophylaxis - Flu & pneumovax per protocol - prn analgesia per pain score - continue other care per attending / other consultants ... re-evaluate in am & prn I have spent ( >35 ) minutes with the patient w/ >50% of the time spent c ounseling and/or coordinating care for this patient. Counseling topics and/or how time was spent coordinating patient's care is outlined in the impression and plan above. Subjective Date of service: 04/04/21 Principal diagnosis: Ac encephalopathy; Severe Met. Acidosis; KENYATTA; Hyperkalemia; EtOH OD Interval history: Patient is seen today for: Acute toxic metabolic encephalopathy; Severe metabolic acidosis; KENYATTA; Leukocytosis; Hyperkalemia; Alcohol intoxication Seen and examined at bedside; 24hour events reviewed; nursing and respiratory care staff consulted; no adverse overnight events reported to me; resting in bed; work of breathing reduced with bicarbonate supplementation; 2D ECHO with normal EF; no new issues Objective Vital Signs - 12hr 04/04/21 04/04/21 04/04/21 00:30 00:50 01:00 Temperature Pulse Rate 121 H 122 H 123 H Respiratory 36 H 38 H 44 H Rate Blood Pressure 119/74 124/73 116/70 O2 Sat by Pulse 98 100 98 Oximetry 04/04/21 04/04/21 04/04/21 01:08 01:10 01:20 Temperature 98.6 F Pulse Rate 125 H 133 H Respiratory 47 H 33 H Rate Blood Pressure 140/86 124/73 O2 Sat by Pulse 99 96 Oximetry 04/04/21 04/04/21 04/04/21 01:26 01:30 01:40 Temperature 98.6 F Pulse Rate 122 H 123 H 123 H Respiratory 42 H 46 H 48 H Rate Blood Pressure 126/55 126/55 129/64 O2 Sat by Pulse 99 98 98 Oximetry 04/04/21 04/04/21 04/04/21 01:50 02:00 02:10 Temperature Pulse Rate 126 H 118 H 117 H Respiratory 47 H 43 H 39 H Rate Blood Pressure 129/64 119/59 116/50 O2 Sat by Pulse 98 98 99 Oximetry 04/04/21 04/04/21 04/04/21 02:20 02:30 02:40 Temperature Pulse Rate 118 H 116 H 129 H Respiratory 39 H 40 H 55 H Rate Blood Pressure 116/50 117/56 118/73 O2 Sat by Pulse 99 99 97 Oximetry 04/04/21 04/04/21 04/04/21 02:50 03:00 03:10 Temperature Pulse Rate 122 H 122 H 123 H Respiratory 47 H 24 34 H Rate Blood Pressure 118/73 115/72 145/87 O2 Sat by Pulse 99 99 99 Oximetry 04/04/21 04/04/21 04/04/21 03:20 03:30 04:00 Temperature Pulse Rate 129 H 123 H 124 H Respiratory 60 H 53 H 56 H Rate Blood Pressure 118/73 136/52 144/63 O2 Sat by Pulse 98 99 98 Oximetry 04/04/21 04/04/21 04/04/21 04:30 05:00 06:30 Temperature Pulse Rate 129 H 123 H Respiratory 34 H 53 H 58 H Rate Blood Pressure 127/77 151/93 133/79 O2 Sat by Pulse 98 99 97 Oximetry 04/04/21 04/04/21 04/04/21 07:00 08:00 09:03 Temperature Pulse Rate 134 H Respiratory 60 H 48 H Rate Blood Pressure 151/79 151/79 O2 Sat by Pulse 94 Oximetry 04/04/21 10:01 Temperature Pulse Rate 117 H Respiratory 43 H Rate Blood Pressure 132/86 O2 Sat by Pulse 99 Oximetry Constitutional: no acute distress Eyes: non-icteric ENT: oropharynx moist Neck: supple, no lymphadenopathy, no JVD Effort: mildly labored (moderately) Ascultation: Bilateral: clear, rhonchi (bases) Percussion: Bilateral: not dull Cardiovascular: regular rate and rhythm Gastrointestinal: normoactive bowel sounds, soft, non-tender, non-distended Integumentary: normal Extremities: no cyanosis, no edema, pulses normal, no ischemia or petechiae Neurologic: non-focal exam, pupils equal and round, CN II-XII normal, motor strength normal and Psychiatric: mood appropriate, affect normal CBC and BMP: 04/04/21 07:34 04/04/21 07:34 ABG, PT/INR, D-dimer: ABG ABG pH 7.359 (7.320-7.450) 04/03/21 13:09 POC ABG pCO2 17.5 mmHg (32.0-48.0) L 04/03/21 13:09 POC ABG pO2 110.2 mmHg (83-108) H 04/03/21 13:09 POC ABG HCO3 9.6 04/03/21 13:09 ABG O2 Saturation 98.2 (0-100) 04/03/21 13:09 Abnormal lab findings: Abnormal Labs 04/02/21 04/02/21 04/02/21 07:09 07:09 07:09 WBC 17.9 H RBC 3.57 L Hgb 9.6 L Hct MCV 100 H MCH 27 L MCHC 27 L RDW 26.9 H Plt Count Lymph % (Auto) 37.5 H Eos % (Auto) 6.2 H Baso % (Auto) 1.9 H Eos # (Auto) 0.5 H Baso # (Auto) 0.2 H Seg Neuts % (Manual) 85.0 H Lymphocytes % (Manual) 7.0 L Nucleated RBC % Seg Neutrophils # Man 15.2 H Lymphocytes # (Manual) ABG pH POC ABG pCO2 POC ABG pO2 ABG Hemoglobin ABG Sodium ABG Potassium ABG Chloride ABG Glucose Sodium Potassium 5.3 H Chloride 92.2 L Carbon Dioxide 2 L* BUN Creatinine 1.8 H Glucose POC Glucose Lactic Acid Calcium 11.1 H Magnesium 3.50 H AST 202 H Lipase Arterial Blood Glucose Arterial Blood Ionized Calcium Salicylates < 0.3 L Acetaminophen Plasma/Serum Alcohol Crossmatch 04/02/21 04/02/21 04/02/21 07:09 07:09 07:09 WBC RBC Hgb Hct MCV MCH MCHC RDW Plt Count Lymph % (Auto) Eos % (Auto) Baso % (Auto) Eos # (Auto) Baso # (Auto) Seg Neuts % (Manual) Lymphocytes % (Manual) Nucleated RBC % Seg Neutrophils # Man Lymphocytes # (Manual) ABG pH POC ABG pCO2 POC ABG pO2 ABG Hemoglobin ABG Sodium ABG Potassium ABG Chloride ABG Glucose Sodium Potassium Chloride Carbon Dioxide BUN Creatinine Glucose POC Glucose Lactic Acid Calcium Magnesium AST Lipase 448 H Arterial Blood Glucose Arterial Blood Ionized Calcium Salicylates Acetaminophen 5.0 L Plasma/Serum Alcohol 0.13 H Crossmatch 04/02/21 04/02/21 04/02/21 10:02 12:18 12:31 WBC RBC Hgb Hct MCV MCH MCHC RDW Plt Count Lymph % (Auto) Eos % (Auto) Baso % (Auto) Eos # (Auto) Baso # (Auto) Seg Neuts % (Manual) Lymphocytes % (Manual) Nucleated RBC % Seg Neutrophils # Man Lymphocytes # (Manual) ABG pH 6.657 L POC ABG pCO2 16.1 L POC ABG pO2 142.3 H ABG Hemoglobin 9.7 L ABG Sodium 116.9 L ABG Potassium 5.4 H ABG Chloride ABG Glucose 100 H Sodium Potassium Chloride Carbon Dioxide BUN Creatinine Glucose POC Glucose 124 H 112 H Lactic Acid Calcium Magnesium AST Lipase Arterial Blood Glucose 100 H Arterial Blood Ionized Calcium 5.4 H Salicylates Acetaminophen Plasma/Serum Alcohol Crossmatch 04/02/21 04/02/21 04/02/21 13:09 13:09 17:46 WBC RBC Hgb Hct MCV MCH MCHC RDW Plt Count Lymph % (Auto) Eos % (Auto) Baso % (Auto) Eos # (Auto) Baso # (Auto) Seg Neuts % (Manual) Lymphocytes % (Manual) Nucleated RBC % Seg Neutrophils # Man Lymphocytes # (Manual) ABG pH POC ABG pCO2 POC ABG pO2 ABG Hemoglobin ABG Sodium ABG Potassium ABG Chloride ABG Glucose Sodium Potassium 5.9 H Chloride 97.9 L 95.4 L Carbon Dioxide 6 L* 16 L D BUN 5 L Creatinine Glucose 146 H 119 H POC Glucose Lactic Acid 11.00 H* Calcium 7.8 L Magnesium AST Lipase Arterial Blood Glucose Arterial Blood Ionized Calcium Salicylates Acetaminophen Plasma/Serum Alcohol Crossmatch 04/02/21 04/02/21 04/03/21 17:46 23:04 05:03 WBC RBC Hgb Hct MCV MCH MCHC RDW Plt Count Lymph % (Auto) Eos % (Auto) Baso % (Auto) Eos # (Auto) Baso # (Auto) Seg Neuts % (Manual) Lymphocytes % (Manual) Nucleated RBC % Seg Neutrophils # Man Lymphocytes # (Manual) ABG pH POC ABG pCO2 POC ABG pO2 ABG Hemoglobin ABG Sodium ABG Potassium ABG Chloride ABG Glucose Sodium 135 L Potassium Chloride 92.5 L 88.9 L Carbon Dioxide 12 L 11 L BUN Creatinine 1.8 H Glucose 141 H 170 H POC Glucose Lactic Acid 4.40 H* Calcium 7.5 L 7.1 L Magnesium AST Lipase Arterial Blood Glucose Arterial Blood Ionized Calcium Salicylates Acetaminophen Plasma/Serum Alcohol Crossmatch 04/03/21 04/03/21 04/03/21 13:09 17:10 21:50 WBC RBC 2.53 L Hgb 6.8 L Hct 22.2 L D MCV MCH 27 L MCHC RDW 27.5 H Plt Count 71 L Lymph % (Auto) Eos % (Auto) Baso % (Auto) Eos # (Auto) Baso # (Auto) Seg Neuts % (Manual) Lymphocytes % (Manual) Nucleated RBC % Seg Neutrophils # Man Lymphocytes # (Manual) ABG pH POC ABG pCO2 17.5 L POC ABG pO2 110.2 H ABG Hemoglobin 9.6 L ABG Sodium 127.7 L ABG Potassium ABG Chloride 97.0 L ABG Glucose 164 H Sodium Potassium Chloride Carbon Dioxide BUN Creatinine Glucose POC Glucose Lactic Acid Calcium Magnesium AST Lipase Arterial Blood Glucose 164 H Arterial Blood Ionized Calcium 4.3 L Salicylates Acetaminophen Plasma/Serum Alcohol Crossmatch See Detail 04/04/21 04/04/21 07:34 07:34 WBC 12.4 H RBC 3.10 L Hgb 8.6 L Hct 26.4 L MCV MCH MCHC RDW 26.0 H Plt Count 63 L Lymph % (Auto) Eos % (Auto) Baso % (Auto) Eos # (Auto) Baso # (Auto) Seg Neuts % (Manual) 91.0 H Lymphocytes % (Manual) 2.0 L Nucleated RBC % 1.0 H Seg Neutrophils # Man 11.3 H Lymphocytes # (Manual) 0.2 L ABG pH POC ABG pCO2 POC ABG pO2 ABG Hemoglobin ABG Sodium ABG Potassium ABG Chloride ABG Glucose Sodium Potassium 3.0 L D Chloride Carbon Dioxide BUN 6 L Creatinine 1.3 H Glucose 151 H POC Glucose Lactic Acid Calcium Magnesium AST Lipase Arterial Blood Glucose Arterial Blood Ionized Calcium Salicylates Acetaminophen Plasma/Serum Alcohol Crossmatch Allied health notes reviewed: nursing
--- NOTE | 2021-04-04 13:06 | Progress Note ---
Subjective - Reason for Consult Consult date: 04/04/21 Reason for consult: altered mental status - Chief Complaint Chief complaint: The patient was seen today. She reports doing well. No withdrawal symptoms reported. The patient denies any current suicidal/homicidal ideation and denies hallucinations. REVIEW OF SYSTEMS Constitutional: Negative for weight loss ENT: Negative for stridor Respiratory: Negative for cough or hemoptysis All other systems reviewed and are negative MENTAL STATUS EXAMINATION General Appearance and Behavior: Age appropriate, good hygiene, wearing appropriate clothes. Cooperation: Cooperative Psychomotor Behavior: Psychomotor normal Mood: OK Affect and affective range: incongruent with stated mood Thought Process: Goal directed Thought Content: Not SI Speech: high volume, increased rate and pressured Suicidal Ideation: Denies Homicidal Ideation: Denies Hallucinations: Denies Delusions: None elicited Impulse Control: Questionable Insight and Judgment: Limited Memory: Limited Attention: Distractible Orientation: alert and oriented Assessment and Plan (1) Alcohol use Disorder Current Visit: Yes Status: Acute Discontinue 1013 Continue [facility] protocol Treatment Plan The patient to comply with previously prescribed medications Risks, benefits and alternatives of medications discussed with the patient, questions answered and consent obtained from patient. PSYCHOTHERAPY: Supportive psychotherapy provided MEDICAL: Per primary team [employer]: Defer to primary DISPOSITION: Do not recommend acute inpatient psychiatric hospitalization at this time. The patient knows that if suicidal/homicidal ideation or any endangering thoughts arise to seek for emergent assistance including but not limited to crisis hot line and emergency room. Street Contractor will provide patient with outpatient resources. Will sign off. Thanks Case staffed with Dr. Guadarrama Mental Status Exam - Vital signs Last Vital Signs Temp 98.6 F 04/04/21 01:26 Pulse 117 H 04/04/21 10:01 Resp 43 H 04/04/21 10:01 BP 132/86 04/04/21 10:01 Pulse Ox 99 04/04/21 10:01
--- NOTE | 2021-04-04 16:45 | Progress Note ---
Assessment and Plan Acute toxic metabolic encephalopathy Alcohol intoxication Severe metabolic acidosis Hypotensive versus septic shock, resolved KENYATTA likely ATN Hyperkalemia Macrocytic anemia Bilateral pneumonia Hypertension with sinus tachycardia Daily clinical course and mx: 04/03/21 -Admitted patient to ICU -Monitor with frequent neuro checks, patient remains on restraint -Continue CIWA protocol, nephrology consulted -s/p emergent hemodialysis, Vas-Cath has been placed -Follow clinically, monitor H&H -Initiate antibiotics for possible bacterial pneumonia, ordered 2D echo 04/04/21 -Monitor patient ICU -Monitor with frequent neuro checks, patient remains on restraint -Continue CIWA protocol -initiate Librium, nephrology consulted -s/p emergent hemodialysis x2, Vas-Cath has been placed -Follow clinically -Initiated antibiotics for possible bacterial pneumonia, follow 2D echo result -Ordered repeat Covid test, ordered clonidine patch -Toxicology study for ethylene glycol pending - s/p transfuse 1 unit of packed RBC aS hemoglobin dropped The high probability of a clinically significant, sudden or life threatening deterioration of the [multiple] system(s) required my full and direct attention, intervention and personal management. The aggregate critical care time was [55] minutes. This time is in addition to time spent performing reported procedures but includes the following: [x] Data Review and interpretation [x] Patient assessment and monitoring of vital signs [x] Documentation [x] Medication orders and management Subjective Date of service: 04/04/21 Principal diagnosis: Ac encephalopathy; Severe Met. Acidosis; KENYATTA; Hyperkalemia; EtOH OD Objective - Constitutional Vitals: Vital Signs - 12hr 04/04/21 04/04/21 04/04/21 05:00 06:30 07:00 Temperature Pulse Rate 123 H Respiratory 53 H 58 H 60 H Rate Blood Pressure 151/93 133/79 151/79 O2 Sat by Pulse 99 97 94 Oximetry 04/04/21 04/04/21 04/04/21 08:00 09:03 10:01 Temperature Pulse Rate 134 H 117 H Respiratory 48 H 43 H Rate Blood Pressure 151/79 132/86 O2 Sat by Pulse 99 Oximetry 04/04/21 04/04/21 04/04/21 11:01 12:01 13:01 Temperature Pulse Rate 119 H Respiratory 35 H 49 H 42 H Rate Blood Pressure 157/85 146/94 125/78 O2 Sat by Pulse 99 99 Oximetry 04/04/21 04/04/21 04/04/21 14:00 15:01 15:15 Temperature 99.3 F Pulse Rate 116 H Respiratory 44 H 50 H Rate Blood Pressure 131/79 154/95 O2 Sat by Pulse 71 L 99 Oximetry - Labs CBC & Chem 7: 04/07/21 05:03 04/08/21 06:12 Labs: Abnormal lab results 04/03/21 04/03/21 04/04/21 Range/Units 17:10 21:50 07:34 WBC 12.4 H (4.5-11.0) K/mm3 RBC 2.53 L 3.10 L (3.65-5.03) M/mm3 Hgb 6.8 L 8.6 L (10.1-14.3) gm/dl Hct 22.2 L D 26.4 L (30.3-42.9) % MCH 27 L (28-32) pg RDW 27.5 H 26.0 H (13.2-15.2) % Plt Count 71 L 63 L (140-440) K/mm3 Seg Neuts % (Manual) 91.0 H (40.0-70.0) % Lymphocytes % (Manual) 2.0 L (13.4-35.0) % Nucleated RBC % 1.0 H (0.0-0.9) % Seg Neutrophils # Man 11.3 H (1.8-7.7) K/mm3 Lymphocytes # (Manual) 0.2 L (1.2-5.4) K/mm3 Potassium (3.6-5.0) mmol/L BUN (7-17) mg/dL Creatinine (0.6-1.2) mg/dL Glucose (65-100) mg/dL Crossmatch See Detail 04/04/21 Range/Units 07:34 WBC (4.5-11.0) K/mm3 RBC (3.65-5.03) M/mm3 Hgb (10.1-14.3) gm/dl Hct (30.3-42.9) % MCH (28-32) pg RDW (13.2-15.2) % Plt Count (140-440) K/mm3 Seg Neuts % (Manual) (40.0-70.0) % Lymphocytes % (Manual) (13.4-35.0) % Nucleated RBC % (0.0-0.9) % Seg Neutrophils # Man (1.8-7.7) K/mm3 Lymphocytes # (Manual) (1.2-5.4) K/mm3 Potassium 3.0 L D (3.6-5.0) mmol/L BUN 6 L (7-17) mg/dL Creatinine 1.3 H (0.6-1.2) mg/dL Glucose 151 H (65-100) mg/dL Crossmatch
[2021-04-04] MEDS ORDERED: cloNIDine TTS 0.2 MG/24 HR PATCH TD SCH (18:00)
[2021-04-04 19:31] LABS: Myeloperoxidase Antibody <1.0 AI (<1.0)
[2021-04-04] MEDS: amLODIPine 5 MG TAB PO SCH (20:40)
[2021-04-04] MEDS: chlordiazePOXIDE 25 MG CAP PO SCH (20:41)
[2021-04-04] MEDS: AZITHROMYCIN/NS 500 MG/250 ML 500 MG/250 ML BAG IV SCH (20:44)
[2021-04-04] MEDS: cefTRIAXone/NS 2 GM/100 ML 2 GM/100 ML BAG IV SCH ×2 (20:47→22:52)
[2021-04-05] MEDS: POTASSIUM CHLORIDE ER 20 MEQ TAB PO ONE ×2 (08:42→15:33)
[2021-04-05] MEDS: ALBUTEROL 2.5 MG/3 ML NEBU IH SCH ×4 (08:45→17:26)
--- NOTE | 2021-04-05 08:59 | Progress Note ---
Subjective Principal diagnosis: Ac encephalopathy; Severe Met. Acidosis; KENYATTA; Hyperkalemia; EtOH OD Interval history: Patient was seen today for follow-up of multiple renal related issues Was very confused yesterday doing slightly better today fluid I asked her about her mother's telephone number which she has been struggling for the past few days she gave me her own number yesterday after a long struggle and hence was very confused No complaints of any chest pain pressure or shortness of breath Interdisciplinary notes that also reviewed Events of 24 hours vitals labs intake output medications were reviewed Past medical history: Reviewed Family history: Reviewed Social history: Reviewed Allergies: Reviewed Physical examination: Vitals: Reviewed HEENT: No pallor or icterus oral mucosa moist Neck: Supple no JVD no thyromegaly Chest: Bilateral clear to auscultation anteriorly Heart: Regular rate and rhythm S1-S2 heard no S3-S4 Abdomen: Soft nontender no voluntary guarding rigidity rebound Extremity: Dry skin less than 1+ peripheral edema Psychiatric: No evidence of agitation and aggression noted Dermatology: No petechial rashes Labs and x-rays: Reviewed from today Assessment and plan #Acute kidney injury in a patient who has been admitted with history of alcoholism, was noted to be in renal failure with severe metabolic acidosis required to dialysis treatment after which her labs are stabilizing Has had significant osmolar gap #shortness of breath due to severe metabolic acidosis, lactic acidosis, patient responded well to hemodialysis, echocardiogram noted to be normal, fluid has been discontinued #Hypocalcemia ionized calcium noted to be 4.3 needs oral and IV replacement, check magnesium level patient does have history of alcoholism She has been taken off the bicarbonate drip already Start her on oral replacement give her 2 g of calcium gluconate #Severe metabolic acidosis appears to have resolved with to dialysis treatment Has had severe lactic acidosis upon arrival 11.0 which has come down to 1.2 as of April 03 Etiology was unclear no history of any nausea vomiting diarrhea, Pending ethylene glycol level still not available, Report reviewed currently none detected However did this was sent the next day We will discontinue dialysis catheter #History of alcoholism undergoing psychiatric evaluation, patient is not a reliable historian at all please order to remove dialysis catheter We'll continue to follow and make recommendation for renal standpoint Objective - Vital Signs Vital signs: Vital Signs - 12hr 04/04/21 04/04/21 04/04/21 21:31 22:01 22:31 Pulse Rate 123 H 121 H 108 H Pulse Rate [ Anterior Bilateral] Respiratory 38 H Rate Respiratory Rate [Anterior Bilateral] Blood Pressure 137/89 148/97 137/74 O2 Sat by Pulse 95 93 97 Oximetry 04/04/21 04/04/21 04/05/21 22:52 23:01 00:01 Pulse Rate 119 H 110 H 115 H Pulse Rate [ Anterior Bilateral] Respiratory Rate Respiratory Rate [Anterior Bilateral] Blood Pressure 132/73 132/73 163/98 O2 Sat by Pulse 95 100 Oximetry 04/05/21 04/05/21 04/05/21 00:31 01:01 01:30 Pulse Rate 110 H 117 H 112 H Pulse Rate [ Anterior Bilateral] Respiratory 12 Rate Respiratory Rate [Anterior Bilateral] Blood Pressure 165/104 144/84 144/87 O2 Sat by Pulse 100 100 100 Oximetry 04/05/21 04/05/21 04/05/21 02:01 02:31 03:01 Pulse Rate 107 H 90 99 H Pulse Rate [ Anterior Bilateral] Respiratory Rate Respiratory Rate [Anterior Bilateral] Blood Pressure 144/87 142/92 143/90 O2 Sat by Pulse 100 Oximetry 04/05/21 04/05/21 04/05/21 03:30 04:01 04:31 Pulse Rate 86 115 H 108 H Pulse Rate [ Anterior Bilateral] Respiratory 15 Rate Respiratory Rate [Anterior Bilateral] Blood Pressure 149/100 141/78 152/86 O2 Sat by Pulse Oximetry 04/05/21 04/05/21 04/05/21 05:01 05:31 06:01 Pulse Rate 106 H 96 H 103 H Pulse Rate [ Anterior Bilateral] Respiratory 21 24 21 Rate Respiratory Rate [Anterior Bilateral] Blood Pressure 158/98 154/85 151/93 O2 Sat by Pulse Oximetry 04/05/21 04/05/21 06:31 08:50 Pulse Rate 105 H Pulse Rate [ 94 H Anterior Bilateral] Respiratory 23 Rate Respiratory 17 Rate [Anterior Bilateral] Blood Pressure 150/83 O2 Sat by Pulse 100 97 Oximetry - Lab 04/04/21 07:34 04/04/21 07:34 Most recent lab results ABG pH 7.359 (7.320-7.450) 04/03/21 13:09 ABG O2 Saturation 98.2 (0-100) 04/03/21 13:09 Calcium 8.7 mg/dL (8.4-10.2) D 04/04/21 07:34 Magnesium 3.50 mg/dL (1.7-2.3) H 04/02/21 07:09 Medications & Allergies - Medications Allergies/Adverse Reactions: Allergies No Known Allergies Allergy (Unverified 04/02/21 05:40) Active Medications: Generic Name Dose Route Start Last Admin Trade Name Freq PRN Reason Stop Dose Admin Albuterol 2.5 mg 04/03/21 12:15 04/05/21 08:45 Albuterol 2.5 Mg/3 Ml Nebu IH 2.5 mg Q4HRT MARIAH Administration Amlodipine Besylate 5 mg 04/04/21 18:00 04/04/21 20:40 Amlodipine 5 Mg Tab PO 5 mg QDAY MARIAH Administration Chlordiazepoxide HCl 25 mg 04/04/21 18:00 04/04/21 20:41 Chlordiazepoxide 25 Mg Cap PO 25 mg TID MARIAH Administration Clonidine HCl 0.2 mg 04/04/21 18:00 04/04/21 22:52 Clonidine Tts 0.2 Mg/24 Hr Patch TD 0.2 mg Sa MARIAH Administration Dextrose 50 ml 04/02/21 06:54 Dextrose 50% In Water (25gm) 50 Ml Syringe IV Q30MIN PRN Hypoglycemia Protocol Sodium Chloride 100 mls @ 999 mls/hr 04/02/21 10:01 Nacl 0.9% IV DIMPLE PRN Hypotension Norepinephrine 4 mg in 250 mls @ 7.5 mls/hr 04/02/21 12:00 04/03/21 01:53 Levophed Drip 4 Mg/Ns 250 Ml IV 7 mcg/min TITR MARIAH 26.25 mls/hr Administration Protocol 2 MCG/MIN Vasopressin 20 unit/ Sodium 101 mls @ 9.09 mls/hr 04/02/21 12:00 04/02/21 17:36 Chloride IV 0 units/min TITR MARIAH 0 mls/hr Titration Protocol 0.03 UNITS/MIN Azithromycin 500 mg in 250 mls @ 250 mls/hr 04/03/21 18:00 04/04/21 20:44 Zithromax/Ns IV 250 mls/hr Q24H MARIAH Administration Ceftriaxone Sodium 2 gm in 100 mls @ 200 mls/hr 04/04/21 10:00 04/04/21 22:52 Rocephin/Ns 2 Gm/100 Ml IV 200 mls/hr Q12HR MARIAH Administration Protocol Lorazepam 2 mg 04/02/21 06:55 04/03/21 23:49 Lorazepam 2 Mg/Ml Vial IM 2 mg Q4HR PRN Administration Agitation Ondansetron HCl 4 mg 04/02/21 06:53 Ondansetron 4 Mg/2 Ml Inj IV Q4H PRN Nausea And Vomiting
[2021-04-05] MEDS: chlordiazePOXIDE 25 MG CAP PO SCH ×3 (09:12→20:34)
[2021-04-05] MEDS: amLODIPine 5 MG TAB PO SCH (09:59)
[2021-04-05] MEDS ORDERED: CALCIUM GLUCONATE 2,000 MG in SODIUM CHLORIDE 0.9% 100 ML IV ONE (10:00)
[2021-04-05] MEDS: cefTRIAXone/NS 2 GM/100 ML 2 GM/100 ML BAG IV SCH ×2 (10:53→22:59)
--- NOTE | 2021-04-05 12:26 | Progress Note ---
Assessment and Plan Acute toxic metabolic encephalopathy Alcohol intoxication Severe metabolic acidosis Hypotensive versus septic shock, resolved KENYATTA likely ATN Hyperkalemia now hypokalemic Macrocytic anemia Bilateral pneumonia Hypertension with sinus tachycardia Daily clinical course and mx: 04/03/21 -Admitted patient to ICU -Monitor with frequent neuro checks, patient remains on restraint -Continue CIAK protocol, nephrology consulted -s/p emergent hemodialysis, Vas-Cath has been placed -Follow clinically, monitor H&H -Initiate antibiotics for possible bacterial pneumonia, ordered 2D echo 04/04/21 -Monitor patient ICU -Monitor with frequent neuro checks, patient remains on restraint -Continue CIAK protocol -initiate Librium, nephrology consulted -s/p emergent hemodialysis x2, Vas-Cath has been placed -Follow clinically -Initiated antibiotics for possible bacterial pneumonia, follow 2D echo result -Ordered repeat Covid test, ordered clonidine patch -Toxicology study for ethylene glycol pending - s/p transfuse 1 unit of packed RBC aS hemoglobin dropped 04/05/21 -Continue to monitor at ICU -mental status improved, off restrain -s/p CIWA protocol -now initiated Librium, nephrology consulted -s/p emergent hemodialysis x2, Vas-Cath has been placed -cont antibiotics for possible bacterial pneumonia, pending 2D echo -Ordered repeat Covid test, ordered clonidine patch -Toxicology study for ethylene glycol is negative - s/p transfuse 1 unit of packed RBC aS hemoglobin dropped --Continue to follow H&H, replete K The high probability of a clinically significant, sudden or life threatening deterioration of the [multiple] system(s) required my full and direct attention, intervention and personal management. The aggregate critical care time was [55] minutes. This time is in addition to time spent performing reported procedures but includes the following: [x] Data Review and interpretation [x] Patient assessment and monitoring of vital signs [x] Documentation [x] Medication orders and management Subjective Date of service: 04/05/21 Principal diagnosis: Ac encephalopathy; Severe Met. Acidosis; KENYATTA; Hyperkalemia; EtOH OD Objective - Constitutional Vitals: Vital Signs - 12hr 04/05/21 04/05/21 04/05/21 00:31 01:01 01:30 Pulse Rate 110 H 117 H 112 H Pulse Rate [ Anterior Bilateral] Respiratory 12 Rate Respiratory Rate [Anterior Bilateral] Blood Pressure 165/104 144/84 144/87 O2 Sat by Pulse 100 100 100 Oximetry 04/05/21 04/05/21 04/05/21 02:01 02:31 03:01 Pulse Rate 107 H 90 99 H Pulse Rate [ Anterior Bilateral] Respiratory Rate Respiratory Rate [Anterior Bilateral] Blood Pressure 144/87 142/92 143/90 O2 Sat by Pulse 100 Oximetry 04/05/21 04/05/21 04/05/21 03:30 04:01 04:31 Pulse Rate 86 115 H 108 H Pulse Rate [ Anterior Bilateral] Respiratory 15 Rate Respiratory Rate [Anterior Bilateral] Blood Pressure 149/100 141/78 152/86 O2 Sat by Pulse Oximetry 04/05/21 04/05/21 04/05/21 05:01 05:31 06:01 Pulse Rate 106 H 96 H 103 H Pulse Rate [ Anterior Bilateral] Respiratory 21 24 21 Rate Respiratory Rate [Anterior Bilateral] Blood Pressure 158/98 154/85 151/93 O2 Sat by Pulse Oximetry 04/05/21 04/05/21 04/05/21 06:31 08:50 09:59 Pulse Rate 105 H 111 H Pulse Rate [ 117 H Anterior Bilateral] Respiratory 23 Rate Respiratory 23 Rate [Anterior Bilateral] Blood Pressure 150/83 148/86 O2 Sat by Pulse 100 97 Oximetry - Labs CBC & Chem 7: 04/07/21 05:03 04/08/21 06:12
[2021-04-05] MEDS ORDERED: cloNIDine TTS 0.3 MG/24 HR PATCH TD SCH (13:00)
--- NOTE | 2021-04-05 14:11 | Progress Note ---
Assessment and Plan Acute toxic metabolic encephalopathy Severe metabolic acidosis Acute kidney injury Leukocytosis Thrombocytopenia Anemia that is microcytic Likely alcohol abuse Hyperkalemia Elevated serum transaminase Alcohol intoxication - thrombocytopenia improving - repeat CXR in am re: infiltrates - continue care as below otherwise; - HD/UF per nephrology prescription for toxin and volume clearance - prn supplemental oxygen to keep O2 sats > 90% - wean vasopressors for target MAP > 65 mmHg (on hold now) - prn bronchodilators (JOSE J) with pulm hygiene per RT - continue to avoid nephrotoxins, renally dose all medications - mobility protocols to prevent pressure ulcers - PT/OT as tolerated - accuchecks with glycemic control per SSI for target blood glucose < 180 mg/dL - tobacco abstinence strongly counseled at the bedside - home oxygen evaluation at discharge - GI & VTE prophylaxis - Flu & pneumovax per protocol - prn analgesia per pain score - continue other care per attending / other consultants ... re-evaluate in am & prn I have spent ( >35 ) minutes with the patient w/ >50% of the time spent counseling and/or coordinating care for this patient. Counseling topics and/or how time was spent coordinating patient's care is outlined in the impression and plan above. Subjective Date of service: 04/05/21 Principal diagnosis: Ac encephalopathy; Severe Met. Acidosis; KENYATTA; Hyperkalemia; EtOH OD Interval history: Patient is seen today for: Acute toxic metabolic encephalopathy; Severe metabolic acidosis; KENYATTA; Leukocytosis; Hyperkalemia; Alcohol intoxication Seen and examined at bedside; 24hour events reviewed; nursing and respiratory care staff consulted; no adverse overnight events reported to me; resting in bed; much more coherent; breathing now non-labored; denies chest pains or acute SOB Objective Vital Signs - 12hr 04/05/21 04/05/21 04/05/21 02:31 03:01 03:30 Pulse Rate 90 99 H 86 Pulse Rate [ Anterior Bilateral] Respiratory Rate Respiratory Rate [Anterior Bilateral] Blood Pressure 142/92 143/90 149/100 O2 Sat by Pulse Oximetry 04/05/21 04/05/21 04/05/21 04:01 04:31 05:01 Pulse Rate 115 H 108 H 106 H Pulse Rate [ Anterior Bilateral] Respiratory 15 21 Rate Respiratory Rate [Anterior Bilateral] Blood Pressure 141/78 152/86 158/98 O2 Sat by Pulse Oximetry 04/05/21 04/05/21 04/05/21 05:31 06:01 06:31 Pulse Rate 96 H 103 H 105 H Pulse Rate [ Anterior Bilateral] Respiratory 24 21 23 Rate Respiratory Rate [Anterior Bilateral] Blood Pressure 154/85 151/93 150/83 O2 Sat by Pulse 100 Oximetry 04/05/21 04/05/21 04/05/21 07:01 07:31 08:01 Pulse Rate 105 H 83 80 Pulse Rate [ Anterior Bilateral] Respiratory 20 16 24 Rate Respiratory Rate [Anterior Bilateral] Blood Pressure 153/85 155/93 141/81 O2 Sat by Pulse 100 100 Oximetry 04/05/21 04/05/21 04/05/21 08:31 08:50 09:01 Pulse Rate 109 H 88 Pulse Rate [ 117 H Anterior Bilateral] Respiratory 22 25 H Rate Respiratory 23 Rate [Anterior Bilateral] Blood Pressure 142/83 141/79 O2 Sat by Pulse 97 100 Oximetry 04/05/21 04/05/21 04/05/21 09:31 09:59 10:00 Pulse Rate 108 H 111 H 109 H Pulse Rate [ Anterior Bilateral] Respiratory 29 H 24 Rate Respiratory Rate [Anterior Bilateral] Blood Pressure 141/79 148/86 148/86 O2 Sat by Pulse 100 100 Oximetry 04/05/21 04/05/21 04/05/21 10:31 11:01 11:31 Pulse Rate 107 H 100 H 94 H Pulse Rate [ Anterior Bilateral] Respiratory 29 H 22 38 H Rate Respiratory Rate [Anterior Bilateral] Blood Pressure 148/86 160/82 160/82 O2 Sat by Pulse 97 99 Oximetry 04/05/21 04/05/21 04/05/21 12:01 12:31 13:01 Pulse Rate 108 H 109 H 97 H Pulse Rate [ Anterior Bilateral] Respiratory 34 H 34 H 29 H Rate Respiratory Rate [Anterior Bilateral] Blood Pressure 142/82 142/82 145/84 O2 Sat by Pulse 100 100 Oximetry 04/05/21 04/05/21 13:31 14:01 Pulse Rate 111 H 130 H Pulse Rate [ 104 H Anterior Bilateral] Respiratory 30 H 24 Rate Respiratory 19 Rate [Anterior Bilateral] Blood Pressure 145/84 146/84 O2 Sat by Pulse 97 98 Oximetry Constitutional: no acute distress Eyes: non-icteric ENT: oropharynx moist Neck: supple, no lymphadenopathy, no JVD Effort: mildly labored Ascultation: Bilateral: rhonchi (bases) Percussion: Bilateral: not dull Cardiovascular: regular rate and rhythm Gastrointestinal: normoactive bowel sounds, soft, non-tender, non-distended Integumentary: normal Extremities: no cyanosis, no edema, pulses normal, no ischemia or petechiae Neurologic: non-focal exam, pupils equal and round, CN II-XII normal, motor strength normal and Psychiatric: mood appropriate, affect normal CBC and BMP: 04/05/21 14:11 04/05/21 14:11 ABG, PT/INR, D-dimer: ABG ABG pH 7.359 (7.320-7.450) 04/03/21 13:09 POC ABG pCO2 17.5 mmHg (32.0-48.0) L 04/03/21 13:09 POC ABG pO2 110.2 mmHg (83-108) H 04/03/21 13:09 POC ABG HCO3 9.6 04/03/21 13:09 ABG O2 Saturation 98.2 (0-100) 04/03/21 13:09 Abnormal lab findings: Abnormal Labs 04/02/21 04/02/21 04/02/21 07:09 07:09 07:09 WBC 17.9 H RBC 3.57 L Hgb 9.6 L Hct MCV 100 H MCH 27 L MCHC 27 L RDW 26.9 H Plt Count Lymph % (Auto) 37.5 H Eos % (Auto) 6.2 H Baso % (Auto) 1.9 H Eos # (Auto) 0.5 H Baso # (Auto) 0.2 H Seg Neuts % (Manual) 85.0 H Lymphocytes % (Manual) 7.0 L Nucleated RBC % Seg Neutrophils # Man 15.2 H Lymphocytes # (Manual) ABG pH POC ABG pCO2 POC ABG pO2 ABG Hemoglobin ABG Sodium ABG Potassium ABG Chloride ABG Glucose Sodium Potassium 5.3 H Chloride 92.2 L Carbon Dioxide 2 L* BUN Creatinine 1.8 H Glucose POC Glucose Lactic Acid Calcium 11.1 H Magnesium 3.50 H AST 202 H Lipase Arterial Blood Glucose Arterial Blood Ionized Calcium Salicylates < 0.3 L Acetaminophen Plasma/Serum Alcohol Crossmatch 04/02/21 04/02/21 04/02/21 07:09 07:09 07:09 WBC RBC Hgb Hct MCV MCH MCHC RDW Plt Count Lymph % (Auto) Eos % (Auto) Baso % (Auto) Eos # (Auto) Baso # (Auto) Seg Neuts % (Manual) Lymphocytes % (Manual) Nucleated RBC % Seg Neutrophils # Man Lymphocytes # (Manual) ABG pH POC ABG pCO2 POC ABG pO2 ABG Hemoglobin ABG Sodium ABG Potassium ABG Chloride ABG Glucose Sodium Potassium Chloride Carbon Dioxide BUN Creatinine Glucose POC Glucose Lactic Acid Calcium Magnesium AST Lipase 448 H Arterial Blood Glucose Arterial Blood Ionized Calcium Salicylates Acetaminophen 5.0 L Plasma/Serum Alcohol 0.13 H Crossmatch 04/02/21 04/02/21 04/02/21 10:02 12:18 12:31 WBC RBC Hgb Hct MCV MCH MCHC RDW Plt Count Lymph % (Auto) Eos % (Auto) Baso % (Auto) Eos # (Auto) Baso # (Auto) Seg Neuts % (Manual) Lymphocytes % (Manual) Nucleated RBC % Seg Neutrophils # Man Lymphocytes # (Manual) ABG pH 6.657 L POC ABG pCO2 16.1 L POC ABG pO2 142.3 H ABG Hemoglobin 9.7 L ABG Sodium 116.9 L ABG Potassium 5.4 H ABG Chloride ABG Glucose 100 H Sodium Potassium Chloride Carbon Dioxide BUN Creatinine Glucose POC Glucose 124 H 112 H Lactic Acid Calcium Magnesium AST Lipase Arterial Blood Glucose 100 H Arterial Blood Ionized Calcium 5.4 H Salicylates Acetaminophen Plasma/Serum Alcohol Crossmatch 04/02/21 04/02/21 04/02/21 13:09 13:09 17:46 WBC RBC Hgb Hct MCV MCH MCHC RDW Plt Count Lymph % (Auto) Eos % (Auto) Baso % (Auto) Eos # (Auto) Baso # (Auto) Seg Neuts % (Manual) Lymphocytes % (Manual) Nucleated RBC % Seg Neutrophils # Man Lymphocytes # (Manual) ABG pH POC ABG pCO2 POC ABG pO2 ABG Hemoglobin ABG Sodium ABG Potassium ABG Chloride ABG Glucose Sodium Potassium 5.9 H Chloride 97.9 L 95.4 L Carbon Dioxide 6 L* 16 L D BUN 5 L Creatinine Glucose 146 H 119 H POC Glucose Lactic Acid 11.00 H* Calcium 7.8 L Magnesium AST Lipase Arterial Blood Glucose Arterial Blood Ionized Calcium Salicylates Acetaminophen Plasma/Serum Alcohol Crossmatch 0904/02/21 04/03/21 17:46 23:04 05:03 WBC RBC Hgb Hct MCV MCH MCHC RDW Plt Count Lymph % (Auto) Eos % (Auto) Baso % (Auto) Eos # (Auto) Baso # (Auto) Seg Neuts % (Manual) Lymphocytes % (Manual) Nucleated RBC % Seg Neutrophils # Man Lymphocytes # (Manual) ABG pH POC ABG pCO2 POC ABG pO2 ABG Hemoglobin ABG Sodium ABG Potassium ABG Chloride ABG Glucose Sodium 135 L Potassium Chloride 92.5 L 88.9 L Carbon Dioxide 12 L 11 L BUN Creatinine 1.8 H Glucose 141 H 170 H POC Glucose Lactic Acid 4.40 H* Calcium 7.5 L 7.1 L Magnesium AST Lipase Arterial Blood Glucose Arterial Blood Ionized Calcium Salicylates Acetaminophen Plasma/Serum Alcohol Crossmatch 04/03/21 04/03/21 04/03/21 13:09 17:10 21:50 WBC RBC 2.53 L Hgb 6.8 L Hct 22.2 L D MCV MCH 27 L MCHC RDW 27.5 H Plt Count 71 L Lymph % (Auto) Eos % (Auto) Baso % (Auto) Eos # (Auto) Baso # (Auto) Seg Neuts % (Manual) Lymphocytes % (Manual) Nucleated RBC % Seg Neutrophils # Man Lymphocytes # (Manual) ABG pH POC ABG pCO2 17.5 L POC ABG pO2 110.2 H ABG Hemoglobin 9.6 L ABG Sodium 127.7 L ABG Potassium ABG Chloride 97.0 L ABG Glucose 164 H Sodium Potassium Chloride Carbon Dioxide BUN Creatinine Glucose POC Glucose Lactic Acid Calcium Magnesium AST Lipase Arterial Blood Glucose 164 H Arterial Blood Ionized Calcium 4.3 L Salicylates Acetaminophen Plasma/Serum Alcohol Crossmatch See Detail 04/04/21 04/04/21 07:34 07:34 WBC 12.4 H RBC 3.10 L Hgb 8.6 L Hct 26.4 L MCV MCH MCHC RDW 26.0 H Plt Count 63 L Lymph % (Auto) Eos % (Auto) Baso % (Auto) Eos # (Auto) Baso # (Auto) Seg Neuts % (Manual) 91.0 H Lymphocytes % (Manual) 2.0 L Nucleated RBC % 1.0 H Seg Neutrophils # Man 11.3 H Lymphocytes # (Manual) 0.2 L ABG pH POC ABG pCO2 POC ABG pO2 ABG Hemoglobin ABG Sodium ABG Potassium ABG Chloride ABG Glucose Sodium Potassium 3.0 L D Chloride Carbon Dioxide BUN 6 L Creatinine 1.3 H Glucose 151 H POC Glucose Lactic Acid Calcium Magnesium AST Lipase Arterial Blood Glucose Arterial Blood Ionized Calcium Salicylates Acetaminophen Plasma/Serum Alcohol Crossmatch Allied health notes reviewed: nursing
[2021-04-05 14:23] LABS: Hematocrit 30.6 % (30.3-42.9); Hemoglobin 9.7 gm/dl (10.1-14.3); Mean Corpuscular HGB Conc 32 % (30-34); Mean Corpuscular Volume 87 fl (79-97); Platelet Count 114 K/mm3 (140-440); Red Blood Count 3.53 M/mm3 (3.65-5.03)
[2021-04-05 14:44] LABS: BUN/Creatinine Ratio 9; Blood Urea Nitrogen 10 mg/dL (7-17); Hemolysis Index 9
[2021-04-05 15:05] LABS: Red Cell Distribution Width 27.4 % (13.2-15.2)
[2021-04-05] MEDS: CALCIUM CARBONATE 500 MG TAB CHEW PO SCH (15:32)
[2021-04-05] MEDS: amLODIPine 10 MG TAB PO SCH (15:33)
[2021-04-05] MEDS: POTASSIUM CHLORIDE 10 MEQ 10 MEQ/100 ML BAG IV SCH ×3 (15:54→21:34)
[2021-04-05] MEDS: AZITHROMYCIN/NS 500 MG/250 ML 500 MG/250 ML BAG IV SCH (19:56)
[2021-04-05 21:41] LABS: ANA Screen, IFA Negative (Negative)
--- NOTE | 2021-04-06 01:21 | XRay Report ---
CHEST 1 VIEW INDICATION: pneumonia. COMPARISON: 04/03/2021 FINDINGS: Support devices: Unchanged. Heart: Stable. Lungs/Pleura: Previously seen pulmonary opacities have significantly improved. No pleural abnormality . IMPRESSION: 1. Significant improvement. Signer Name: Adam Lara MD Signed: 04/06/2021 1:17 AM Workstation Name: [id number]
[2021-04-06] MEDS: CALCIUM CARBONATE 500 MG TAB CHEW PO SCH ×3 (05:20→22:43)
[2021-04-06] MEDS: ALBUTEROL 2.5 MG/3 ML NEBU IH SCH ×3 (06:48→07:55)
--- NOTE | 2021-04-06 09:05 | Progress Note ---
Subjective Principal diagnosis: Ac encephalopathy; Severe Met. Acidosis; KENYATTA; Hyperkalemia; EtOH OD Interval history: Patient was seen today for follow-up of multiple renal related issues No complaints of any chest pain pressure or shortness of breath she is still continues to keep her dialysis catheter, fully alert awake and appropriate now Interdisciplinary notes that also reviewed Events of 24 hours vitals labs intake output medications were reviewed Past medical history: Reviewed Family history: Reviewed Social history: Reviewed Allergies: Reviewed Physical examination: Vitals: Reviewed HEENT: No pallor or icterus oral mucosa moist Neck: Supple no JVD no thyromegaly dialysis catheter is still present needs to be removed Chest: Bilateral clear to auscultation anteriorly Heart: Regular rate and rhythm S1-S2 heard no S3-S4 Abdomen: Soft nontender no voluntary guarding rigidity rebound Extremity: Dry skin less than 1+ peripheral edema Psychiatric: No evidence of agitation and aggression noted Dermatology: No petechial rashes Labs and x-rays: Reviewed from today Assessment and plan #Acute kidney injury patient presented to the hospital with severe metabolic acidosis unexplained renal failure, osmolar gap which was significant, lactic acidosis, hypocalcemia Ethylene glycol level was not sent on the day 1 but day 2 was negative, patient responded well to to dialysis treatment Has history of chronic alcohol abuse but still continues to denies any toxic alcohol ingestion #Hyperkalemia needs replacement and close follow-up given the history of alcoholism also need to check magnesium level periodically #Dialysis catheter needs to be removed as patient does not need any further dialysis #Chronic alcohol abuse undergoing through psychiatric evaluation,? Rehab ? Treatment for depression #Tested negative for Covid #Toxic metabolic encephalopathy which has completely resolved now Will need follow-up in the office upon discharge contact information was given to the patient Patient was adequately counseled and educated regarding all the renal related issues Laboratory studies, have been explained to the patient All questions were answered and simple Japanese We'll continue to follow and make recommendation for renal standpoint Objective - Vital Signs Vital signs: Vital Signs - 12hr 04/05/21 04/05/21 04/05/21 21:31 22:01 22:31 Pulse Rate 109 H 115 H 101 H Pulse Rate [ Anterior Bilateral] Respiratory 32 H 15 38 H Rate Respiratory Rate [Anterior Bilateral] Blood Pressure 152/92 148/89 148/89 O2 Sat by Pulse 98 97 97 Oximetry 04/05/21 04/05/21 04/06/21 23:03 23:31 00:01 Pulse Rate 104 H 113 H 104 H Pulse Rate [ Anterior Bilateral] Respiratory 36 H 30 H 24 Rate Respiratory Rate [Anterior Bilateral] Blood Pressure 148/89 148/89 158/95 O2 Sat by Pulse 99 95 98 Oximetry 04/06/21 04/06/21 04/06/21 00:31 01:01 01:31 Pulse Rate 118 H 105 H 105 H Pulse Rate [ Anterior Bilateral] Respiratory 29 H 28 H 12 Rate Respiratory Rate [Anterior Bilateral] Blood Pressure 158/95 152/94 152/94 O2 Sat by Pulse 100 98 99 Oximetry 04/06/21 04/06/21 04/06/21 03:37 04:01 04:31 Pulse Rate 116 H Pulse Rate [ Anterior Bilateral] Respiratory 31 H 28 H Rate Respiratory Rate [Anterior Bilateral] Blood Pressure 152/94 148/94 148/94 O2 Sat by Pulse 76 L 100 100 Oximetry 04/06/21 04/06/21 05:01 08:02 Pulse Rate 114 H Pulse Rate [ 120 H Anterior Bilateral] Respiratory 32 H Rate Respiratory 20 Rate [Anterior Bilateral] Blood Pressure 148/95 O2 Sat by Pulse 98 98 Oximetry - Lab 04/07/21 05:03 04/07/21 05:03 Most recent lab results ABG pH 7.359 (7.320-7.450) 04/03/21 13:09 ABG O2 Saturation 98.2 (0-100) 04/03/21 13:09 Calcium 10.0 mg/dL (8.4-10.2) 04/05/21 14:11 Magnesium 3.50 mg/dL (1.7-2.3) H 04/02/21 07:09 Medications & Allergies - Medications Allergies/Adverse Reactions: Allergies No Known Allergies Allergy (Unverified 04/02/21 05:40) Active Medications: Generic Name Dose Route Start Last Admin Trade Name Freq PRN Reason Stop Dose Admin Albuterol 2.5 mg 04/03/21 12:15 04/06/21 07:55 Albuterol 2.5 Mg/3 Ml Nebu IH 2.5 mg Q4HRT MARIAH Administration Amlodipine Besylate 10 mg 04/05/21 13:00 04/05/21 15:33 Amlodipine 10 Mg Tab PO 10 mg QDAY MARIAH Administration Calcium Carbonate/Glycine 1,000 mg 04/05/21 10:00 09/06/21 05:20 Calcium Carbonate 500 Mg Tab Chew PO Not Given BID MARIAH Chlordiazepoxide HCl 25 mg 04/04/21 18:00 04/05/21 20:34 Chlordiazepoxide 25 Mg Cap PO 25 mg TID MARIAH Administration Clonidine HCl 0.3 mg 04/05/21 13:00 Clonidine Tts 0.3 Mg/24 Hr Patch TD Palm MARIAH Dextrose 50 ml 04/02/21 06:54 Dextrose 50% In Water (25gm) 50 Ml Syringe IV Q30MIN PRN Hypoglycemia Protocol Sodium Chloride 100 mls @ 999 mls/hr 04/02/21 10:01 Nacl 0.9% IV DIMPLE PRN Hypotension Norepinephrine 4 mg in 250 mls @ 7.5 mls/hr 04/02/21 12:00 04/03/21 01:53 Levophed Drip 4 Mg/Ns 250 Ml IV 7 mcg/min TITR MARIAH 26.25 mls/hr Administration Protocol 2 MCG/MIN Vasopressin 20 unit/ Sodium 101 mls @ 9.09 mls/hr 04/02/21 12:00 04/02/21 17:36 Chloride IV 0 units/min TITR MARIAH 0 mls/hr Titration Protocol 0.03 UNITS/MIN Azithromycin 500 mg in 250 mls @ 250 mls/hr 04/03/21 18:00 04/05/21 19:56 Zithromax/Ns IV 250 mls/hr Q24H MARIAH Administration Ceftriaxone Sodium 2 gm in 100 mls @ 200 mls/hr 04/04/21 10:00 04/05/21 22:59 Rocephin/Ns 2 Gm/100 Ml IV 200 mls/hr Q12HR MARIAH Administration Protocol Lorazepam 2 mg 04/02/21 06:55 04/03/21 23:49 Lorazepam 2 Mg/Ml Vial IM 2 mg Q4HR PRN Administration Agitation Ondansetron HCl 4 mg 04/02/21 06:53 Ondansetron 4 Mg/2 Ml Inj IV Q4H PRN Nausea And Vomiting
[2021-04-06] MEDS: chlordiazePOXIDE 25 MG CAP PO SCH ×3 (11:00→22:44)
[2021-04-06] MEDS: amLODIPine 10 MG TAB PO SCH (11:01)
[2021-04-06] MEDS: POTASSIUM CHLORIDE ER 20 MEQ TAB PO SCH (11:01)
[2021-04-06] MEDS: cefTRIAXone/NS 2 GM/100 ML 2 GM/100 ML BAG IV SCH (11:02)
--- NOTE | 2021-04-06 11:32 | Progress Note ---
Assessment and Plan Acute toxic metabolic encephalopathy Severe metabolic acidosis Acute kidney injury Leukocytosis Thrombocytopenia Anemia that is microcytic Likely alcohol abuse Hyperkalemia Elevated serum transaminase Alcohol intoxication - thrombocytopenia improving - repeat CXR in am re: infiltrates - continue care as below otherwise; - HD/UF per nephrology prescription for toxin and volume clearance - prn supplemental oxygen to keep O2 sats > 90% - wean vasopressors for target MAP > 65 mmHg (on hold now) - prn bronchodilators (JOSE J) with pulm hygiene per RT - continue to avoid nephrotoxins, renally dose all medications - mobility protocols to prevent pressure ulcers - PT/OT as tolerated - accuchecks with glycemic control per SSI for target blood glucose < 180 mg/dL - tobacco abstinence strongly counseled at the bedside - home oxygen evaluation at discharge - GI & VTE prophylaxis - Flu & pneumovax per protocol - prn analgesia per pain score - continue other care per attending / other consultants ... re-evaluate in am & prn I have spent ( >35 ) minutes with the patient w/ >50% of the time spent counseling and/or coordinating care for this patient. Counseling topics and/or how time was spent coordinating patient's care is outlined in the impression and plan above. Subjective Date of service: 04/06/21 Principal diagnosis: Ac encephalopathy; Severe Met. Acidosis; KENYATTA; Hyperkalemia; EtOH OD Interval history: Patient is seen today for: Acute toxic metabolic encephalopathy; Severe metabolic acidosis; KENYATTA; Leukocytosis; Hyperkalemia; Alcohol intoxication Seen and examined at bedside; 24hour events reviewed; nursing and respiratory care staff consulted; no adverse overnight events reported to me; resting in bed; Objective Vital Signs - 12hr 04/06/21 04/06/21 04/06/21 00:01 00:31 01:01 Pulse Rate 104 H 118 H 105 H Pulse Rate [ Anterior Bilateral] Respiratory 24 29 H 28 H Rate Respiratory Rate [Anterior Bilateral] Blood Pressure 158/95 158/95 152/94 O2 Sat by Pulse 98 100 98 Oximetry 04/06/21 04/06/21 04/06/21 01:31 03:37 04:01 Pulse Rate 105 H Pulse Rate [ Anterior Bilateral] Respiratory 12 31 H Rate Respiratory Rate [Anterior Bilateral] Blood Pressure 152/94 152/94 148/94 O2 Sat by Pulse 99 76 L 100 Oximetry 04/06/21 04/06/21 04/06/21 04:31 05:01 08:02 Pulse Rate 116 H 114 H Pulse Rate [ 120 H Anterior Bilateral] Respiratory 28 H 32 H Rate Respiratory 20 Rate [Anterior Bilateral] Blood Pressure 148/94 148/95 O2 Sat by Pulse 100 98 98 Oximetry 04/06/21 04/06/21 04/06/21 09:21 10:59 11:01 Pulse Rate 110 H 110 H Pulse Rate [ Anterior Bilateral] Respiratory Rate Respiratory Rate [Anterior Bilateral] Blood Pressure 156/94 154/94 O2 Sat by Pulse 98 Oximetry Constitutional: no acute distress Eyes: non-icteric ENT: oropharynx moist Neck: supple, no lymphadenopathy, no JVD Effort: mildly labored Ascultation: Bilateral: clear, rhonchi (bases) Percussion: Bilateral: not dull Cardiovascular: regular rate and rhythm Gastrointestinal: normoactive bowel sounds, soft, non-tender, non-distended Integumentary: normal Extremities: no cyanosis, no edema, pulses normal, no ischemia or petechiae Neurologic: non-focal exam, pupils equal and round, CN II-XII normal, motor strength normal and Psychiatric: mood appropriate, affect normal CBC and BMP: 04/05/21 14:11 04/05/21 14:11 ABG, PT/INR, D-dimer: ABG ABG pH 7.359 (7.320-7.450) 04/03/21 13:09 POC ABG pCO2 17.5 mmHg (32.0-48.0) L 04/03/21 13:09 POC ABG pO2 110.2 mmHg (83-108) H 04/03/21 13:09 POC ABG HCO3 9.6 04/03/21 13:09 ABG O2 Saturation 98.2 (0-100) 04/03/21 13:09 Abnormal lab findings: Abnormal Labs 04/02/21 04/02/21 04/02/21 07:09 07:09 07:09 WBC 17.9 H RBC 3.57 L Hgb 9.6 L Hct MCV 100 H MCH 27 L MCHC 27 L RDW 26.9 H Plt Count Lymph % (Auto) 37.5 H Eos % (Auto) 6.2 H Baso % (Auto) 1.9 H Eos # (Auto) 0.5 H Baso # (Auto) 0.2 H Seg Neuts % (Manual) 85.0 H Lymphocytes % (Manual) 7.0 L Nucleated RBC % Seg Neutrophils # Man 15.2 H Lymphocytes # (Manual) ABG pH POC ABG pCO2 POC ABG pO2 ABG Hemoglobin ABG Sodium ABG Potassium ABG Chloride ABG Glucose Sodium Potassium 5.3 H Chloride 92.2 L Carbon Dioxide 2 L* BUN Creatinine 1.8 H Glucose POC Glucose Lactic Acid Calcium 11.1 H Magnesium 3.50 H AST 202 H Lipase Arterial Blood Glucose Arterial Blood Ionized Calcium Salicylates < 0.3 L Acetaminophen Plasma/Serum Alcohol Crossmatch 04/02/21 04/02/21 04/02/21 07:09 07:09 07:09 WBC RBC Hgb Hct MCV MCH MCHC RDW Plt Count Lymph % (Auto) Eos % (Auto) Baso % (Auto) Eos # (Auto) Baso # (Auto) Seg Neuts % (Manual) Lymphocytes % (Manual) Nucleated RBC % Seg Neutrophils # Man Lymphocytes # (Manual) ABG pH POC ABG pCO2 POC ABG pO2 ABG Hemoglobin ABG Sodium ABG Potassium ABG Chloride ABG Glucose Sodium Potassium Chloride Carbon Dioxide BUN Creatinine Glucose POC Glucose Lactic Acid Calcium Magnesium AST Lipase 448 H Arterial Blood Glucose Arterial Blood Ionized Calcium Salicylates Acetaminophen 5.0 L Plasma/Serum Alcohol 0.13 H Crossmatch 04/02/21 04/02/21 04/02/21 10:02 12:18 12:31 WBC RBC Hgb Hct MCV MCH MCHC RDW Plt Count Lymph % (Auto) Eos % (Auto) Baso % (Auto) Eos # (Auto) Baso # (Auto) Seg Neuts % (Manual) Lymphocytes % (Manual) Nucleated RBC % Seg Neutrophils # Man Lymphocytes # (Manual) ABG pH 6.657 L POC ABG pCO2 16.1 L POC ABG pO2 142.3 H ABG Hemoglobin 9.7 L ABG Sodium 116.9 L ABG Potassium 5.4 H ABG Chloride ABG Glucose 100 H Sodium Potassium Chloride Carbon Dioxide BUN Creatinine Glucose POC Glucose 124 H 112 H Lactic Acid Calcium Magnesium AST Lipase Arterial Blood Glucose 100 H Arterial Blood Ionized Calcium 5.4 H Salicylates Acetaminophen Plasma/Serum Alcohol Crossmatch 04/02/21 04/02/21 04/02/21 13:09 13:09 17:46 WBC RBC Hgb Hct MCV MCH MCHC RDW Plt Count Lymph % (Auto) Eos % (Auto) Baso % (Auto) Eos # (Auto) Baso # (Auto) Seg Neuts % (Manual) Lymphocytes % (Manual) Nucleated RBC % Seg Neutrophils # Man Lymphocytes # (Manual) ABG pH POC ABG pCO2 POC ABG pO2 ABG Hemoglobin ABG Sodium ABG Potassium ABG Chloride ABG Glucose Sodium Potassium 5.9 H Chloride 97.9 L 95.4 L Carbon Dioxide 6 L* 16 L D BUN 5 L Creatinine Glucose 146 H 119 H POC Glucose Lactic Acid 11.00 H* Calcium 7.8 L Magnesium AST Lipase Arterial Blood Glucose Arterial Blood Ionized Calcium Salicylates Acetaminophen Plasma/Serum Alcohol Crossmatch 04/02/21 04/02/21 04/03/21 17:46 23:04 05:03 WBC RBC Hgb Hct MCV MCH MCHC RDW Plt Count Lymph % (Auto) Eos % (Auto) Baso % (Auto) Eos # (Auto) Baso # (Auto) Seg Neuts % (Manual) Lymphocytes % (Manual) Nucleated RBC % Seg Neutrophils # Man Lymphocytes # (Manual) ABG pH POC ABG pCO2 POC ABG pO2 ABG Hemoglobin ABG Sodium ABG Potassium ABG Chloride ABG Glucose Sodium 135 L Potassium Chloride 92.5 L 88.9 L Carbon Dioxide 12 L 11 L BUN Creatinine 1.8 H Glucose 141 H 170 H POC Glucose Lactic Acid 4.40 H* Calcium 7.5 L 7.1 L Magnesium AST Lipase Arterial Blood Glucose Arterial Blood Ionized Calcium Salicylates Acetaminophen Plasma/Serum Alcohol Crossmatch 04/03/21 04/03/21 04/03/21 13:09 17:10 21:50 WBC RBC 2.53 L Hgb 6.8 L Hct 22.2 L D MCV MCH 27 L MCHC RDW 27.5 H Plt Count 71 L Lymph % (Auto) Eos % (Auto) Baso % (Auto) Eos # (Auto) Baso # (Auto) Seg Neuts % (Manual) Lymphocytes % (Manual) Nucleated RBC % Seg Neutrophils # Man Lymphocytes # (Manual) ABG pH POC ABG pCO2 17.5 L POC ABG pO2 110.2 H ABG Hemoglobin 9.6 L ABG Sodium 127.7 L ABG Potassium ABG Chloride 97.0 L ABG Glucose 164 H Sodium Potassium Chloride Carbon Dioxide BUN Creatinine Glucose POC Glucose Lactic Acid Calcium Magnesium AST Lipase Arterial Blood Glucose 164 H Arterial Blood Ionized Calcium 4.3 L Salicylates Acetaminophen Plasma/Serum Alcohol Crossmatch See Detail 04/04/21 04/04/21 04/05/21 07:34 07:34 14:11 WBC 12.4 H 15.0 H RBC 3.10 L 3.53 L Hgb 8.6 L 9.7 L Hct 26.4 L MCV MCH 27 L MCHC RDW 26.0 H 27.4 H Plt Count 63 L 114 L Lymph % (Auto) Eos % (Auto) Baso % (Auto) Eos # (Auto) Baso # (Auto) Seg Neuts % (Manual) 91.0 H Lymphocytes % (Manual) 2.0 L Nucleated RBC % 1.0 H Seg Neutrophils # Man 11.3 H Lymphocytes # (Manual) 0.2 L ABG pH POC ABG pCO2 POC ABG pO2 ABG Hemoglobin ABG Sodium ABG Potassium ABG Chloride ABG Glucose Sodium Potassium 3.0 L D Chloride Carbon Dioxide BUN 6 L Creatinine 1.3 H Glucose 151 H POC Glucose Lactic Acid Calcium Magnesium AST Lipase Arterial Blood Glucose Arterial Blood Ionized Calcium Salicylates Acetaminophen Plasma/Serum Alcohol Crossmatch 04/05/21 14:11 WBC RBC Hgb Hct MCV MCH MCHC RDW Plt Count Lymph % (Auto) Eos % (Auto) Baso % (Auto) Eos # (Auto) Baso # (Auto) Seg Neuts % (Manual) Lymphocytes % (Manual) Nucleated RBC % Seg Neutrophils # Man Lymphocytes # (Manual) ABG pH POC ABG pCO2 POC ABG pO2 ABG Hemoglobin ABG Sodium ABG Potassium ABG Chloride ABG Glucose Sodium Potassium 2.7 L* Chloride Carbon Dioxide 32 H BUN Creatinine Glucose 136 H POC Glucose Lactic Acid Calcium Magnesium AST Lipase Arterial Blood Glucose Arterial Blood Ionized Calcium Salicylates Acetaminophen Plasma/Serum Alcohol Crossmatch Allied health notes reviewed: nursing
--- NOTE | 2021-04-06 12:00 | Progress Note ---
Assessment and Plan Acute toxic metabolic encephalopathy Alcohol intoxication Severe metabolic acidosis Hypotensive versus septic shock, resolved KENYATTA likely ATN Hyperkalemia now hypokalemic Macrocytic anemia Bilateral pneumonia Hypertension with sinus tachycardia Daily clinical course and mx: 04/03/21 -Admitted patient to ICU -Monitor with frequent neuro checks, patient remains on restraint -Continue [facility] protocol, nephrology consulted -s/p emergent hemodialysis, Vas-Cath has been placed -Follow clinically, monitor H&H -Initiate antibiotics for possible bacterial pneumonia, ordered 2D echo 04/04/21 -Monitor patient ICU -Monitor with frequent neuro checks, patient remains on restraint -Continue [facility] protocol -initiate Librium, nephrology consulted -s/p emergent hemodialysis x2, Vas-Cath has been placed -Follow clinically -Initiated antibiotics for possible bacterial pneumonia, follow 2D echo result -Ordered repeat Covid test, ordered clonidine patch -Toxicology study for ethylene glycol pending - s/p transfuse 1 unit of packed RBC aS hemoglobin dropped 04/05/21 -Continue to monitor at ICU -mental status improved, off restrain -s/p [facility]II[facility] protocol -now initiated Librium, nephrology consulted -s/p emergent hemodialysis x2, Vas-Cath has been placed -cont antibiotics for possible bacterial pneumonia, pending 2D echo -Ordered repeat Covid test, ordered clonidine patch -Toxicology study for ethylene glycol is negative - s/p transfuse 1 unit of packed RBC aS hemoglobin dropped --Continue to follow H&H, replete K 04/06/21 -transfer to [facility] -mental status improved, off restrain -s/p [facility] protocol -now initiated Librium, -nephrology consulted, s/p emergent hemodialysis x2, Vas-Cath now removed -cont antibiotics for possible bacterial pneumonia, 2D echo showed preserved EF -repeat Covid test negative, cont clonidine patch, added amlodipine and metoprolol -Toxicology study for ethylene glycol is negative - s/p transfuse 1 unit of packed RBC aS hemoglobin dropped --Continue to follow H&H Subjective Date of service: 04/06/21 Principal diagnosis: Ac encephalopathy; Severe Met. Acidosis; KENYATTA; Hyperkalemia; EtOH OD Objective - Constitutional Vitals: Vital Signs - 12hr 04/06/21 04/06/21 04/06/21 00:01 00:31 01:01 Pulse Rate 104 H 118 H 105 H Pulse Rate [ Anterior Bilateral] Respiratory 24 29 H 28 H Rate Respiratory Rate [Anterior Bilateral] Blood Pressure 158/95 158/95 152/94 O2 Sat by Pulse 98 100 98 Oximetry 04/06/21 04/06/21 04/06/21 01:31 03:37 04:01 Pulse Rate 105 H Pulse Rate [ Anterior Bilateral] Respiratory 12 31 H Rate Respiratory Rate [Anterior Bilateral] Blood Pressure 152/94 152/94 148/94 O2 Sat by Pulse 99 76 L 100 Oximetry 04/06/21 04/06/21 04/06/21 04:31 05:01 08:02 Pulse Rate 116 H 114 H Pulse Rate [ 120 H Anterior Bilateral] Respiratory 28 H 32 H Rate Respiratory 20 Rate [Anterior Bilateral] Blood Pressure 148/94 148/95 O2 Sat by Pulse 100 98 98 Oximetry 04/06/21 04/06/21 04/06/21 09:21 10:59 11:01 Pulse Rate 110 H 110 H Pulse Rate [ Anterior Bilateral] Respiratory Rate Respiratory Rate [Anterior Bilateral] Blood Pressure 156/94 154/94 O2 Sat by Pulse 98 Oximetry - Labs CBC & Chem 7: 04/07/21 05:03 04/08/21 06:12 Labs: Abnormal lab results 04/05/21 04/05/21 Range/Units 14:11 14:11 WBC 15.0 H (4.5-11.0) K/mm3 RBC 3.53 L (3.65-5.03) M/mm3 Hgb 9.7 L (10.1-14.3) gm/dl MCH 27 L (28-32) pg RDW 27.4 H (13.2-15.2) % Plt Count 114 L (140-440) K/mm3 Potassium 2.7 L* (3.6-5.0) mmol/L Carbon Dioxide 32 H (22-30) mmol/L Glucose 136 H (65-100) mg/dL
[2021-04-06] MEDS: IPRATROPIUM/ALBUTEROL SULFATE 3 ML AMPUL.NEB IH SCH ×2 (13:02→21:56)
[2021-04-06] MEDS: METOPROLOL TARTRATE 25 MG TAB PO SCH ×2 (13:42→22:43)
[2021-04-06] MEDS: POTASSIUM CHLORIDE 10 MEQ 10 MEQ/100 ML BAG IV SCH ×3 (13:44→16:21)
[2021-04-06 14:10] LABS: Hematocrit 34.4 % (30.3-42.9); Mean Corpuscular HGB Conc 32 % (30-34); Mean Corpuscular Volume 87 fl (79-97); Platelet Count 134 K/mm3 (140-440); Red Blood Count 3.94 M/mm3 (3.65-5.03)
[2021-04-06 14:30] LABS: Red Cell Distribution Width 28.7 % (13.2-15.2)
[2021-04-06 14:32] LABS: BUN/Creatinine Ratio 10; Blood Urea Nitrogen 8 mg/dL (7-17); Calcium 9.6 mg/dL (8.4-10.2); Hemolysis Index 6
[2021-04-06] MEDS: LORazepam 2 MG/ML VIAL IM PRN (16:59)
[2021-04-06] MEDS ORDERED: LIP THERAPY VASELINE TP PRN (17:03)
[2021-04-06] MEDS ORDERED: SODIUM CHLORIDE 0.9% 100 ML IV PRN (18:00)
[2021-04-07 06:18] LABS: Hemoglobin 8.8 gm/dl (10.1-14.3); Mean Corpuscular HGB Conc 33 % (30-34); Mean Corpuscular Volume 86 fl (79-97); Red Blood Count 3.14 M/mm3 (3.65-5.03)
[2021-04-07 06:21] LABS: BUN/Creatinine Ratio 9; Blood Urea Nitrogen 7 mg/dL (7-17); Calcium 8.8 mg/dL (8.4-10.2); Hemolysis Index 12
[2021-04-07 06:23] LABS: Red Cell Distribution Width 28.8 % (13.2-15.2)
[2021-04-07] MEDS: IPRATROPIUM/ALBUTEROL SULFATE 3 ML AMPUL.NEB IH SCH ×2 (09:06→16:28)
--- NOTE | 2021-04-07 09:57 | Progress Note ---
Assessment and Plan Impression * Acute kidney injury * Severe metabolic acidosis * Hypokalemia * Metabolic encephalopathy Recommendation * Patient's renal function is now back to normal. Acidosis has been corrected as well. No indication for dialysis at this time * Replace potassium * Ethylene glycol was not detected. However the labs percent after her first dialysis treatment * Recommend removal of Vas-Cath Subjective Date of service: 04/07/21 Principal diagnosis: Ac encephalopathy; Severe Met. Acidosis; KENYATTA; Hyperkalemia; EtOH OD Interval history: Patient is comfortable this morning. Denies any shortness of breath. She does complain of some left flank discomfort. No nausea or vomiting. Patient states that she is putting out more urine Objective - Vital Signs Vital signs: Vital Signs - 12hr 04/06/21 04/06/21 04/06/21 22:00 22:01 22:02 Temperature Pulse Rate 113 H Pulse Rate [ 102 H Anterior Bilateral] Respiratory Rate Respiratory 18 Rate [Anterior Bilateral] Blood Pressure O2 Sat by Pulse 100 Oximetry 04/07/21 04/07/21 04/07/21 00:03 03:22 04:57 Temperature 98.3 F 97.6 F Pulse Rate 96 H 101 H Pulse Rate [ Anterior Bilateral] Respiratory 18 18 18 Rate Respiratory Rate [Anterior Bilateral] Blood Pressure 142/88 147/96 O2 Sat by Pulse 97 100 98 Oximetry - General Appearance General appearance: well-developed, well-nourished, appears stated age EENT: PERRL, mucous membranes moist Neck: no JVD, no thyromegaly, no carotid bruit, supple, other (Right IJ Vas-Cath in place) Respiratory: Present: Clear to Ascultation Cardiology: regular Gastrointestinal: normal, normoactive bowel sounds Integumentary: no rash, other (No edema) - Lab 04/07/21 05:03 04/07/21 05:03 Most recent lab results ABG pH 7.359 (7.320-7.450) 04/03/21 13:09 ABG O2 Saturation 98.2 (0-100) 04/03/21 13:09 Calcium 8.8 mg/dL (8.4-10.2) 04/07/21 05:03 Magnesium 3.50 mg/dL (1.7-2.3) H 04/02/21 07:09 Medications & Allergies - Medications Allergies/Adverse Reactions: Allergies No Known Allergies Allergy (Unverified 04/02/21 05:40) Active Medications: Generic Name Dose Route Start Last Admin Trade Name Freq PRN Reason Stop Dose Admin Albuterol/Ipratropium 1 ampul 04/06/21 14:00 04/07/21 09:06 Ipratropium/Albuterol Sulfate 3 Ml Ampul.Neb IH Not Given TIDRT MARIAH Amlodipine Besylate 10 mg 04/05/21 13:00 04/06/21 11:01 Amlodipine 10 Mg Tab PO 10 mg QDAY MARIAH Administration Calcium Carbonate/Glycine 1,000 mg 04/05/21 10:00 04/06/21 22:43 Calcium Carbonate 500 Mg Tab Chew PO 1,000 mg BID MARIAH Administration Chlordiazepoxide HCl 25 mg 04/06/21 13:00 04/06/21 22:44 Chlordiazepoxide 25 Mg Cap PO 25 mg BID MARIAH Administration Clonidine HCl 0.3 mg 04/05/21 13:00 04/06/21 10:59 Clonidine Tts 0.3 Mg/24 Hr Patch TD 0.3 mg Palm MARIAH Administration Dextrose 50 ml 04/02/21 06:54 Dextrose 50% In Water (25gm) 50 Ml Syringe IV Q30MIN PRN Hypoglycemia Protocol Hydrophilic Ointment 1 applic 04/06/21 17:03 04/06/21 17:06 Lip Therapy Vaseline TP 1 applic DIRECT PRN Administration Dry Lips Azithromycin 500 mg in 250 mls @ 250 mls/hr 04/03/21 18:00 04/05/21 19:56 Zithromax/Ns IV 04/07/21 18:59 250 mls/hr Q24H MARIAH Administration Ceftriaxone Sodium 2 gm in 100 mls @ 200 mls/hr 04/06/21 10:00 04/06/21 11:02 Rocephin/Ns 2 Gm/100 Ml IV 04/07/21 10:29 200 mls/hr Q24HR MARIAH Administration Protocol Sodium Chloride 100 mls @ 999 mls/hr 04/06/21 18:00 Nacl 0.9% IV DIMPLE PRN Hypotension Lorazepam 2 mg 04/02/21 06:55 04/06/21 16:59 Lorazepam 2 Mg/Ml Vial IM 2 mg Q4HR PRN Administration Agitation Metoprolol Tartrate 25 mg 04/06/21 13:00 04/06/21 22:43 Metoprolol Tartrate 25 Mg Tab PO 25 mg BID MARIAH Administration Ondansetron HCl 4 mg 04/02/21 06:53 04/06/21 16:59 Ondansetron 4 Mg/2 Ml Inj IV 4 mg Q4H PRN Administration Nausea And Vomiting Potassium Chloride 40 meq 04/06/21 10:00 04/06/21 11:01 Potassium Chloride Er 20 Meq Tab PO 04/08/21 10:00 40 meq QDAY MARIAH Administration
[2021-04-07] MEDS: amLODIPine 10 MG TAB PO SCH (11:36)
[2021-04-07] MEDS: chlordiazePOXIDE 25 MG CAP PO SCH ×2 (11:37→22:43)
[2021-04-07] MEDS: METOPROLOL TARTRATE 25 MG TAB PO SCH ×2 (11:37→22:40)
[2021-04-07] MEDS: POTASSIUM CHLORIDE ER 20 MEQ TAB PO SCH (11:37)
[2021-04-07] MEDS: cefTRIAXone/NS 2 GM/100 ML 2 GM/100 ML BAG IV SCH (11:38)
[2021-04-07] MEDS: CALCIUM CARBONATE 500 MG TAB CHEW PO SCH ×2 (11:38→22:40)
[2021-04-07] MEDS: POTASSIUM CHLORIDE 10 MEQ 10 MEQ/100 ML BAG IV SCH ×4 (12:10→15:48)
[2021-04-07 16:12] LABS: Anisocytosis 3+; Hypochromasia 1+; Platelet Estimate Consistent w Auto; Total Cells Counted 100
[2021-04-07 16:13] LABS: Platelet Count 164 K/mm3 (140-440)
--- NOTE | 2021-04-07 17:41 | Progress Note ---
Assessment and Plan Acute toxic metabolic encephalopathy Alcohol intoxication Severe metabolic acidosis Hypotensive versus septic shock, resolved KENYATTA likely ATN Hyperkalemia now hypokalemic Macrocytic anemia Bilateral pneumonia Hypertension with sinus tachycardia Daily clinical course and mx: 04/03/21 -Admitted patient to ICU -Monitor with frequent neuro checks, patient remains on restraint -Continue IN protocol, nephrology consulted -s/p emergent hemodialysis, Vas-Cath has been placed -Follow clinically, monitor H&H -Initiate antibiotics for possible bacterial pneumonia, ordered 2D echo 04/04/21 -Monitor patient ICU -Monitor with frequent neuro checks, patient remains on restraint -Continue IN protocol -initiate Librium, nephrology consulted -s/p emergent hemodialysis x2, Vas-Cath has been placed -Follow clinically -Initiated antibiotics for possible bacterial pneumonia, follow 2D echo result -Ordered repeat Covid test, ordered clonidine patch -Toxicology study for ethylene glycol pending - s/p transfuse 1 unit of packed RBC aS hemoglobin dropped 04/05/21 -Continue to monitor at ICU -mental status improved, off restrain -s/p IN protocol -now initiated Librium, nephrology consulted -s/p emergent hemodialysis x2, Vas-Cath has been placed -cont antibiotics for possible bacterial pneumonia, pending 2D echo -Ordered repeat Covid test, ordered clonidine patch, add amlodipine -Toxicology study for ethylene glycol is negative - s/p transfuse 1 unit of packed RBC aS hemoglobin dropped --Continue to follow H&H, replete K for hypokalemia 04/06/21 -transfer to [facility] -mental status improved, off restrain -s/p protocol -now initiated Librium, -nephrology consulted, s/p emergent hemodialysis x2, monitor renal function off HD -cont antibiotics for possible bacterial pneumonia, 2D echo showed preserved EF -repeat Covid test negative, cont clonidine patch, added amlodipine and metoprolol -Toxicology study for ethylene glycol is negative - s/p transfuse 1 unit of packed RBC aS hemoglobin dropped --Continue to follow H&H, con tp replete k, order mg and phos level 04/07/21 -mental status improved, off restrain -s/p [facility] protocol -now on Librium, -nephrology following, s/p emergent hemodialysis x2, renal function now stable -cont antibiotics for possible bacterial pneumonia, 2D echo showed preserved EF -repeat Covid test negative, cont clonidine patch, amlodipine and metoprolol, adjust BP meds as needed -Toxicology study for ethylene glycol is negative - s/p transfuse 1 unit of packed RBC aS hemoglobin dropped, h/h now stable, need further workup as outpt -Patient noted to have persistently low potassium, magnesium and phosphate level. continue to replete. --Continue to follow H&H. if clinically Subjective Date of service: 04/07/21 Principal diagnosis: Ac encephalopathy; Severe Met. Acidosis; KENYATTA; Hyperkalemia; EtOH OD Objective - Constitutional Vitals: Vital Signs - 12hr 04/07/21 04/07/21 10:00 14:00 Pulse Rate [ 107 H Anterior Bilateral] Respiratory 19 Rate [Anterior Bilateral] O2 Sat by Pulse 98 Oximetry - Labs CBC & Chem 7: 04/07/21 05:03 04/08/21 06:12 Labs: Abnormal lab results 04/06/21 04/07/21 04/07/21 Range/Units 21:31 05:03 05:03 WBC 14.5 H (4.5-11.0) K/mm3 RBC 3.14 L (3.65-5.03) M/mm3 Hgb 8.8 L (10.1-14.3) gm/dl Hct 27.0 L D (30.3-42.9) % RDW 28.8 H (13.2-15.2) % Seg Neuts % (Manual) 78.0 H (40.0-70.0) % Lymphocytes % (Manual) 4.0 L (13.4-35.0) % Monocytes % (Manual) 10.0 H (0.0-7.3) % Nucleated RBC % 3.0 H (0.0-0.9) % Seg Neutrophils # Man 0.0 L (1.8-7.7) K/mm3 Lymphocytes # (Manual) 0.0 L (1.2-5.4) K/mm3 Potassium 2.8 L* (3.6-5.0) mmol/L Glucose 132 H (65-100) mg/dL POC Glucose 155 H (70-105) mg/dL Magnesium (1.7-2.3) mg/dL 04/07/21 Range/Units 16:16 WBC (4.5-11.0) K/mm3 RBC (3.65-5.03) M/mm3 Hgb (10.1-14.3) gm/dl Hct (30.3-42.9) % RDW (13.2-15.2) % Seg Neuts % (Manual) (40.0-70.0) % Lymphocytes % (Manual) (13.4-35.0) % Monocytes % (Manual) (0.0-7.3) % Nucleated RBC % (0.0-0.9) % Seg Neutrophils # Man (1.8-7.7) K/mm3 Lymphocytes # (Manual) (1.2-5.4) K/mm3 Potassium (3.6-5.0) mmol/L Glucose (65-100) mg/dL POC Glucose (70-105) mg/dL Magnesium 1.30 L (1.7-2.3) mg/dL
[2021-04-07] MEDS ORDERED: MAGNESIUM SULFATE 3 GM in SODIUM CHLORIDE 0.9% 100 ML IV ONE (18:00)
[2021-04-07] MEDS: AZITHROMYCIN/NS 500 MG/250 ML 500 MG/250 ML BAG IV SCH ×2 (18:47→20:41)
--- NOTE | 2021-04-07 20:51 | Progress Note ---
Assessment and Plan 35-year-old -[place] female presented to the hospital with a history of alcohol abuse with complaints of altered mental status. Patient confused. Work-up in the ER suggestive for elevated white count, macrocytic anemia hyperkalemia elevated creatinine and lactic acidosis. Patient initiated on CIWA protocol, given normal saline bolus and Patient admitted to the hospital. Patient is in deep sleep. Not responding to verbal stimuli. Patient is on room air. O2 saturation 95%. No acute respiratory distress. Patient afebrile. Has leukocytosis. Blood pressure 130/89. Pulse 117. Chest xray done 04/06/21 reported Previously seen pulmonary opacities have significantly improved. No pleural abnormality. Patient presently on DUO neb aerosol treatments. - Patient Problems (1) Systemic inflammatory response syndrome (SIRS) Current Visit: Yes Status: Acute Plan to address problem: Patient afebrile. Still has some leukocytosis. (2) Pancreatitis Current Visit: Yes Status: Acute Plan to address problem: Management as per primary care. (3) Abdominal pain Current Visit: Yes Status: Acute Plan to address problem: Management as per primary care. (4) Acute encephalopathy Current Visit: Yes Status: Acute Plan to address problem: Management as per primary care. (5) Metabolic acidosis Current Visit: Yes Status: Acute Plan to address problem: well compensated. HCO3 and anion gap improving. Subjective Date of service: 04/07/21 Principal diagnosis: Ac encephalopathy; Severe Met. Acidosis; KENYATTA; Hyperkalemia; EtOH OD Interval history: 35-year-old -[place] female presented to the hospital with a history of alcohol abuse with complaints of altered mental status. Patient confused. Work-up in the ER suggestive for elevated white count, macrocytic anemia hyperkalemia elevated creatinine and lactic acidosis. Patient initiated on CIWA protocol, given normal saline bolus and Patient admitted to the hospital. Patient is in deep sleep. Not responding to verbal stimuli. Patient is on room air. O2 saturation 95%. No acute respiratory distress. Patient afebrile. Has leukocytosis. Blood pressure 130/89. Pulse 117. Chest xray done 04/06/21 reported Previously seen pulmonary opacities have significantly improved. No pleural abnormality. Patient presently on DUO neb aerosol treatments. Objective Vital Signs - 12hr 04/07/21 04/07/21 04/07/21 10:00 12:49 14:00 Temperature 98.4 F Pulse Rate 110 H 98 H Pulse Rate [ 107 H Anterior Bilateral] Respiratory 18 Rate Respiratory 19 Rate [Anterior Bilateral] Blood Pressure 136/94 O2 Sat by Pulse 98 100 Oximetry 04/07/21 04/07/21 04/07/21 16:46 16:57 19:35 Temperature 97.6 F 98.9 F Pulse Rate 108 H 117 H Pulse Rate [ Anterior Bilateral] Respiratory 18 18 Rate Respiratory Rate [Anterior Bilateral] Blood Pressure 146/76 131/89 O2 Sat by Pulse 100 97 95 Oximetry Constitutional: no acute distress, asleep Eyes: non-icteric ENT: oropharynx moist Neck: supple, no lymphadenopathy, no JVD Effort: mildly labored Ascultation: Bilateral: rhonchi (bases) Percussion: Bilateral: not dull Cardiovascular: regular rate and rhythm Gastrointestinal: normoactive bowel sounds, soft, non-tender, non-distended Integumentary: normal Extremities: no cyanosis, no edema, pulses normal, no ischemia or petechiae Neurologic: pupils equal and round, other (Patient is in deep sleep.) Psychiatric: other (Patient is is in deep sleep.) CBC and BMP: 04/07/21 05:03 04/08/21 06:12 ABG, PT/INR, D-dimer: ABG ABG pH 7.359 (7.320-7.450) 04/03/21 13:09 POC ABG pCO2 17.5 mmHg (32.0-48.0) L 04/03/21 13:09 POC ABG pO2 110.2 mmHg (83-108) H 04/03/21 13:09 POC ABG HCO3 9.6 04/03/21 13:09 ABG O2 Saturation 98.2 (0-100) 04/03/21 13:09 Abnormal lab findings: Abnormal Labs 04/02/21 04/02/21 04/02/21 07:09 07:09 07:09 WBC 17.9 H RBC 3.57 L Hgb 9.6 L Hct MCV 100 H MCH 27 L MCHC 27 L RDW 26.9 H Plt Count Lymph % (Auto) 37.5 H Eos % (Auto) 6.2 H Baso % (Auto) 1.9 H Eos # (Auto) 0.5 H Baso # (Auto) 0.2 H Seg Neuts % (Manual) 85.0 H Lymphocytes % (Manual) 7.0 L Monocytes % (Manual) Nucleated RBC % Seg Neutrophils # Man 15.2 H Lymphocytes # (Manual) ABG pH POC ABG pCO2 POC ABG pO2 ABG Hemoglobin ABG Sodium ABG Potassium ABG Chloride ABG Glucose Sodium Potassium 5.3 H Chloride 92.2 L Carbon Dioxide 2 L* BUN Creatinine 1.8 H Glucose POC Glucose Lactic Acid Calcium 11.1 H Phosphorus Magnesium 3.50 H AST 202 H Lipase Arterial Blood Glucose Arterial Blood Ionized Calcium Salicylates < 0.3 L Acetaminophen Plasma/Serum Alcohol Crossmatch 04/02/21 04/02/21 04/02/21 07:09 07:09 07:09 WBC RBC Hgb Hct MCV MCH MCHC RDW Plt Count Lymph % (Auto) Eos % (Auto) Baso % (Auto) Eos # (Auto) Baso # (Auto) Seg Neuts % (Manual) Lymphocytes % (Manual) Monocytes % (Manual) Nucleated RBC % Seg Neutrophils # Man Lymphocytes # (Manual) ABG pH POC ABG pCO2 POC ABG pO2 ABG Hemoglobin ABG Sodium ABG Potassium ABG Chloride ABG Glucose Sodium Potassium Chloride Carbon Dioxide BUN Creatinine Glucose POC Glucose Lactic Acid Calcium Phosphorus Magnesium AST Lipase 448 H Arterial Blood Glucose Arterial Blood Ionized Calcium Salicylates Acetaminophen 5.0 L Plasma/Serum Alcohol 0.13 H Crossmatch 04/02/21 04/02/21 04/02/21 10:02 12:18 12:31 WBC RBC Hgb Hct MCV MCH MCHC RDW Plt Count Lymph % (Auto) Eos % (Auto) Baso % (Auto) Eos # (Auto) Baso # (Auto) Seg Neuts % (Manual) Lymphocytes % (Manual) Monocytes % (Manual) Nucleated RBC % Seg Neutrophils # Man Lymphocytes # (Manual) ABG pH 6.657 L POC ABG pCO2 16.1 L POC ABG pO2 142.3 H ABG Hemoglobin 9.7 L ABG Sodium 116.9 L ABG Potassium 5.4 H ABG Chloride ABG Glucose 100 H Sodium Potassium Chloride Carbon Dioxide BUN Creatinine Glucose POC Glucose 124 H 112 H Lactic Acid Calcium Phosphorus Magnesium AST Lipase Arterial Blood Glucose 100 H Arterial Blood Ionized Calcium 5.4 H Salicylates Acetaminophen Plasma/Serum Alcohol Crossmatch 04/02/21 04/02/21 04/02/21 13:09 13:09 17:46 WBC RBC Hgb Hct MCV MCH MCHC RDW Plt Count Lymph % (Auto) Eos % (Auto) Baso % (Auto) Eos # (Auto) Baso # (Auto) Seg Neuts % (Manual) Lymphocytes % (Manual) Monocytes % (Manual) Nucleated RBC % Seg Neutrophils # Man Lymphocytes # (Manual) ABG pH POC ABG pCO2 POC ABG pO2 ABG Hemoglobin ABG Sodium ABG Potassium ABG Chloride ABG Glucose Sodium Potassium 5.9 H Chloride 97.9 L 95.4 L Carbon Dioxide 6 L* 16 L D BUN 5 L Creatinine Glucose 146 H 119 H POC Glucose Lactic Acid 11.00 H* Calcium 7.8 L Phosphorus Magnesium AST Lipase Arterial Blood Glucose Arterial Blood Ionized Calcium Salicylates Acetaminophen Plasma/Serum Alcohol Crossmatch 04/02/21 04/02/21 04/03/21 17:46 23:04 05:03 WBC RBC Hgb Hct MCV MCH MCHC RDW Plt Count Lymph % (Auto) Eos % (Auto) Baso % (Auto) Eos # (Auto) Baso # (Auto) Seg Neuts % (Manual) Lymphocytes % (Manual) Monocytes % (Manual) Nucleated RBC % Seg Neutrophils # Man Lymphocytes # (Manual) ABG pH POC ABG pCO2 POC ABG pO2 ABG Hemoglobin ABG Sodium ABG Potassium ABG Chloride ABG Glucose Sodium 135 L Potassium Chloride 92.5 L 88.9 L Carbon Dioxide 12 L 11 L BUN Creatinine 1.8 H Glucose 141 H 170 H POC Glucose Lactic Acid 4.40 H* Calcium 7.5 L 7.1 L Phosphorus Magnesium AST Lipase Arterial Blood Glucose Arterial Blood Ionized Calcium Salicylates Acetaminophen Plasma/Serum Alcohol Crossmatch 04/03/21 04/03/21 04/03/21 13:09 17:10 21:50 WBC RBC 2.53 L Hgb 6.8 L Hct 22.2 L D MCV MCH 27 L MCHC RDW 27.5 H Plt Count 71 L Lymph % (Auto) Eos % (Auto) Baso % (Auto) Eos # (Auto) Baso # (Auto) Seg Neuts % (Manual) Lymphocytes % (Manual) Monocytes % (Manual) Nucleated RBC % Seg Neutrophils # Man Lymphocytes # (Manual) ABG pH POC ABG pCO2 17.5 L POC ABG pO2 110.2 H ABG Hemoglobin 9.6 L ABG Sodium 127.7 L ABG Potassium ABG Chloride 97.0 L ABG Glucose 164 H Sodium Potassium Chloride Carbon Dioxide BUN Creatinine Glucose POC Glucose Lactic Acid Calcium Phosphorus Magnesium AST Lipase Arterial Blood Glucose 164 H Arterial Blood Ionized Calcium 4.3 L Salicylates Acetaminophen Plasma/Serum Alcohol Crossmatch See Detail 04/04/21 04/04/21 04/05/21 07:34 07:34 14:11 WBC 12.4 H 15.0 H RBC 3.10 L 3.53 L Hgb 8.6 L 9.7 L Hct 26.4 L MCV MCH 27 L MCHC RDW 26.0 H 27.4 H Plt Count 63 L 114 L Lymph % (Auto) Eos % (Auto) Baso % (Auto) Eos # (Auto) Baso # (Auto) Seg Neuts % (Manual) 91.0 H Lymphocytes % (Manual) 2.0 L Monocytes % (Manual) Nucleated RBC % 1.0 H Seg Neutrophils # Man 11.3 H Lymphocytes # (Manual) 0.2 L ABG pH POC ABG pCO2 POC ABG pO2 ABG Hemoglobin ABG Sodium ABG Potassium ABG Chloride ABG Glucose Sodium Potassium 3.0 L D Chloride Carbon Dioxide BUN 6 L Creatinine 1.3 H Glucose 151 H POC Glucose Lactic Acid Calcium Phosphorus Magnesium AST Lipase Arterial Blood Glucose Arterial Blood Ionized Calcium Salicylates Acetaminophen Plasma/Serum Alcohol Crossmatch 04/05/21 04/06/21 04/06/21 14:11 13:52 13:52 WBC 13.0 H RBC Hgb Hct MCV MCH MCHC RDW 28.7 H Plt Count 134 L Lymph % (Auto) Eos % (Auto) Baso % (Auto) Eos # (Auto) Baso # (Auto) Seg Neuts % (Manual) Lymphocytes % (Manual) Monocytes % (Manual) Nucleated RBC % Seg Neutrophils # Man Lymphocytes # (Manual) ABG pH POC ABG pCO2 POC ABG pO2 ABG Hemoglobin ABG Sodium ABG Potassium ABG Chloride ABG Glucose Sodium Potassium 2.7 L* 2.9 L* Chloride Carbon Dioxide 32 H BUN Creatinine Glucose 136 H 162 H POC Glucose Lactic Acid Calcium Phosphorus Magnesium AST Lipase Arterial Blood Glucose Arterial Blood Ionized Calcium Salicylates Acetaminophen Plasma/Serum Alcohol Crossmatch 04/06/21 04/07/21 04/07/21 21:31 05:03 05:03 WBC 14.5 H RBC 3.14 L Hgb 8.8 L Hct 27.0 L D MCV MCH MCHC RDW 28.8 H Plt Count Lymph % (Auto) Eos % (Auto) Baso % (Auto) Eos # (Auto) Baso # (Auto) Seg Neuts % (Manual) 78.0 H Lymphocytes % (Manual) 4.0 L Monocytes % (Manual) 10.0 H Nucleated RBC % 3.0 H Seg Neutrophils # Man 0.0 L Lymphocytes # (Manual) 0.0 L ABG pH POC ABG pCO2 POC ABG pO2 ABG Hemoglobin ABG Sodium ABG Potassium ABG Chloride ABG Glucose Sodium Potassium 2.8 L* Chloride Carbon Dioxide BUN Creatinine Glucose 132 H POC Glucose 155 H Lactic Acid Calcium Phosphorus Magnesium AST Lipase Arterial Blood Glucose Arterial Blood Ionized Calcium Salicylates Acetaminophen Plasma/Serum Alcohol Crossmatch 04/07/21 04/07/21 16:16 20:13 WBC RBC Hgb Hct MCV MCH MCHC RDW Plt Count Lymph % (Auto) Eos % (Auto) Baso % (Auto) Eos # (Auto) Baso # (Auto) Seg Neuts % (Manual) Lymphocytes % (Manual) Monocytes % (Manual) Nucleated RBC % Seg Neutrophils # Man Lymphocytes # (Manual) ABG pH POC ABG pCO2 POC ABG pO2 ABG Hemoglobin ABG Sodium ABG Potassium ABG Chloride ABG Glucose Sodium Potassium Chloride Carbon Dioxide BUN Creatinine Glucose POC Glucose 161 H Lactic Acid Calcium Phosphorus 0.60 L* Magnesium 1.30 L AST Lipase Arterial Blood Glucose Arterial Blood Ionized Calcium Salicylates Acetaminophen Plasma/Serum Alcohol Crossmatch Chest x-ray: report reviewed, image reviewed Additional Studies: CHEST 1 VIEW 04/06/21 INDICATION: pneumonia. COMPARISON: 04/03/2021 FINDINGS: Support devices: Unchanged. Heart: Stable. Lungs/Pleura: Previously seen pulmonary opacities have significantly improved. No pleural abnormality. IMPRESSION: 1. Significant improvement. Allied health notes reviewed: nursing
[2021-04-08] MEDS: IPRATROPIUM/ALBUTEROL SULFATE 3 ML AMPUL.NEB IH SCH ×4 (03:05→21:01)
[2021-04-08] MEDS ORDERED: POTASSIUM PHOSPHATE IV ONE (04:15)
[2021-04-08] MEDS ORDERED: SODIUM CHLORIDE 0.9% IV ONE (04:15)
[2021-04-08 06:53] LABS: BUN/Creatinine Ratio 6; Blood Urea Nitrogen 5 mg/dL (7-17); Calcium 8.8 mg/dL (8.4-10.2); Hemolysis Index 4
--- NOTE | 2021-04-08 09:38 | Progress Note ---
Assessment and Plan Impression * Acute kidney injury * Severe metabolic acidosis * Hypokalemia * Metabolic encephalopathy Recommendation * Patient's renal function is now back to normal. Acidosis has been corrected as well. No indication for dialysis at this time * Replace potassium * Ethylene glycol was not detected. However the labs percent after her first dialysis treatment * Recommend removal of Vas-Cath * Shall sign off for now. Please recall if needed Subjective Date of service: 04/08/21 Principal diagnosis: Ac encephalopathy; Severe Met. Acidosis; KENYATTA; Hyperkalemia; EtOH OD Interval history: Patient is comfortable today. She does complain of some left flank discomfort. Good urine output. No nausea or vomiting. Objective - Vital Signs Vital signs: Vital Signs - 12hr 04/07/21 04/07/21 04/08/21 22:40 23:21 03:50 Temperature 98.3 F 98.8 F Pulse Rate 117 H 104 H 101 H Pulse Rate [ Anterior Bilateral] Respiratory 16 16 Rate Respiratory Rate [Anterior Bilateral] Blood Pressure 127/83 136/93 O2 Sat by Pulse 97 97 Oximetry 04/08/21 04/08/21 04/08/21 04:00 08:13 08:30 Temperature 98.3 F Pulse Rate 103 H Pulse Rate [ 105 H Anterior Bilateral] Respiratory 20 Rate Respiratory 19 Rate [Anterior Bilateral] Blood Pressure 141/87 O2 Sat by Pulse 98 99 Oximetry 04/08/21 08:47 Temperature Pulse Rate Pulse Rate [ Anterior Bilateral] Respiratory Rate Respiratory Rate [Anterior Bilateral] Blood Pressure O2 Sat by Pulse 98 Oximetry - General Appearance General appearance: well-developed, well-nourished, appears stated age EENT: PERRL, mucous membranes moist Neck: no JVD, no thyromegaly, no carotid bruit, supple, other (Right IJ Vas-Cath in place) Respiratory: Present: Clear to Ascultation Cardiology: regular, normal heart rate, S1S2, no murmurs Gastrointestinal: normal, normoactive bowel sounds Integumentary: no rash, other (No edema) - Lab 04/07/21 05:03 04/08/21 06:12 Most recent lab results ABG pH 7.359 (7.320-7.450) 04/03/21 13:09 ABG O2 Saturation 98.2 (0-100) 04/03/21 13:09 Calcium 8.8 mg/dL (8.4-10.2) 04/08/21 06:12 Phosphorus 0.80 mg/dL (2.5-4.5) L* D 04/07/21 23:14 Magnesium 1.30 mg/dL (1.7-2.3) L 04/07/21 16:16 Medications & Allergies - Medications Allergies/Adverse Reactions: Allergies No Known Allergies Allergy (Unverified 04/02/21 05:40) Active Medications: Generic Name Dose Route Start Last Admin Trade Name Freq PRN Reason Stop Dose Admin Albuterol/Ipratropium 1 ampul 04/06/21 14:00 04/08/21 08:35 Ipratropium/Albuterol Sulfate 3 Ml Ampul.Neb IH 1 ampul TIDRT MARIAH Administration Amlodipine Besylate 10 mg 04/05/21 13:00 04/07/21 11:36 Amlodipine 10 Mg Tab PO 10 mg QDAY MARIAH Administration Calcium Carbonate/Glycine 1,000 mg 04/05/21 10:00 04/07/21 22:40 Calcium Carbonate 500 Mg Tab Chew PO 1,000 mg BID MARIAH Administration Chlordiazepoxide HCl 25 mg 04/06/21 13:00 04/07/21 22:43 Chlordiazepoxide 25 Mg Cap PO 25 mg BID MARIAH Administration Clonidine HCl 0.3 mg 04/05/21 13:00 04/06/21 10:59 Clonidine Tts 0.3 Mg/24 Hr Patch TD 0.3 mg Palm MARIAH Administration Dextrose 50 ml 04/02/21 06:54 Dextrose 50% In Water (25gm) 50 Ml Syringe IV Q30MIN PRN Hypoglycemia Protocol Hydrophilic Ointment 1 applic 04/06/21 17:03 04/06/21 17:06 Lip Therapy Vaseline TP 1 applic DIRECT PRN Administration Dry Lips Sodium Chloride 100 mls @ 999 mls/hr 04/06/21 18:00 Nacl 0.9% IV DIMPLE PRN Hypotension Potassium Phosphate 15 mmol/ 505 mls @ 63 mls/hr 04/08/21 04:15 04/08/21 04:51 Sodium Chloride IV 04/08/21 12:15 63 mls/hr ONCE ONE Administration Lorazepam 2 mg 04/02/21 06:55 04/06/21 16:59 Lorazepam 2 Mg/Ml Vial IM 2 mg Q4HR PRN Administration Agitation Metoprolol Tartrate 25 mg 04/06/21 13:00 04/07/21 22:40 Metoprolol Tartrate 25 Mg Tab PO 25 mg BID MARIAH Administration Ondansetron HCl 4 mg 04/02/21 06:53 04/06/21 16:59 Ondansetron 4 Mg/2 Ml Inj IV 4 mg Q4H PRN Administration Nausea And Vomiting Potassium Chloride 40 meq 04/06/21 10:00 04/07/21 11:37 Potassium Chloride Er 20 Meq Tab PO 04/08/21 10:00 40 meq QDAY MARIAH Administration
[2021-04-08] MEDS: amLODIPine 10 MG TAB PO SCH (11:07)
[2021-04-08] MEDS: chlordiazePOXIDE 25 MG CAP PO SCH ×2 (11:08→21:20)
[2021-04-08] MEDS: METOPROLOL TARTRATE 25 MG TAB PO SCH ×2 (11:08→21:20)
[2021-04-08] MEDS: POTASSIUM CHLORIDE ER 20 MEQ TAB PO SCH (11:08)
[2021-04-08] MEDS: CALCIUM CARBONATE 500 MG TAB CHEW PO SCH ×2 (11:09→21:20)
[2021-04-08] MEDS ORDERED: POTASSIUM PHOSPHATE 40 MMOL in SODIUM CHLORIDE 0.9% 500 ML 500 ML IV ONE (11:30)
[2021-04-08] MEDS ORDERED: MAGNESIUM SULFATE 3 GM in SODIUM CHLORIDE 0.9% 100 ML IV ONE (11:30)
--- NOTE | 2021-04-08 13:30 | Progress Note ---
Assessment and Plan 35-year-old -[place] female presented to the hospital with a history of alcohol abuse with complaints of altered mental status. Patient confused. Work-up in the ER suggestive for elevated white count, macrocytic anemia hyperkalemia elevated creatinine and lactic acidosis. Patient initiated on CIWA protocol, given normal saline bolus and Patient admitted to the hospital. Patient is in deep sleep. Not responding to verbal stimuli. Patient is on room air. O2 saturation 95%. No acute respiratory distress. Patient afebrile. Has leukocytosis. Blood pressure 130/89. Pulse 117. Chest xray done 04/06/21 reported Previously seen pulmonary opacities have significantly improved. No pleural abnormality. Patient presently on DUO neb aerosol treatments. - Patient Problems (1) Systemic inflammatory response syndrome (SIRS) Current Visit: Yes Status: Acute Plan to address problem: Patient afebrile. Still has some leukocytosis. (2) Pancreatitis Current Visit: Yes Status: Acute Plan to address problem: Management as per primary care. (3) Abdominal pain Current Visit: Yes Status: Acute Plan to address problem: Management as per primary care. (4) Acute encephalopathy Current Visit: Yes Status: Acute Plan to address problem: Management as per primary care. (5) Metabolic acidosis Current Visit: Yes Status: Acute Plan to address problem: well compensated. HCO3 and anion gap improving. Subjective Date of service: 04/08/21 Principal diagnosis: Ac encephalopathy; Severe Met. Acidosis; KENYATTA; Hyperkalemia; EtOH OD Interval history: 35-year-old -[place] female presented to the hospital with a history of alcohol abuse with complaints of altered mental status. Patient confused. Work-up in the ER suggestive for elevated white count, macrocytic anemia hyperkalemia elevated creatinine and lactic acidosis. Patient initiated on CIWA protocol, given normal saline bolus and Patient admitted to the hospital. Patient is in deep sleep. Not responding to verbal stimuli. Patient is on room air. O2 saturation 95%. No acute respiratory distress. Patient afebrile. Has leukocytosis. Blood pressure 130/89. Pulse 117. Chest xray done 04/06/21 reported Previously seen pulmonary opacities have significantly improved. No pleural abnormality. Patient presently on DUO neb aerosol treatments. Objective Vital Signs - 12hr 04/08/21 04/08/21 04/08/21 03:50 04:00 08:13 Temperature 98.8 F 98.3 F Pulse Rate 101 H 103 H Pulse Rate [ Anterior Bilateral] Respiratory 16 20 Rate Respiratory Rate [Anterior Bilateral] Blood Pressure 136/93 141/87 O2 Sat by Pulse 97 98 99 Oximetry 04/08/21 04/08/21 04/08/21 08:30 08:47 10:00 Temperature Pulse Rate 105 H Pulse Rate [ 105 H Anterior Bilateral] Respiratory Rate Respiratory 19 Rate [Anterior Bilateral] Blood Pressure O2 Sat by Pulse 98 Oximetry 04/08/21 13:03 Temperature Pulse Rate Pulse Rate [ Anterior Bilateral] Respiratory Rate Respiratory Rate [Anterior Bilateral] Blood Pressure O2 Sat by Pulse 97 Oximetry Constitutional: no acute distress, asleep Eyes: non-icteric ENT: oropharynx moist Neck: supple, no lymphadenopathy, no JVD Effort: mildly labored Ascultation: Bilateral: clear, rhonchi (bases) Percussion: Bilateral: not dull Cardiovascular: regular rate and rhythm Gastrointestinal: normoactive bowel sounds, soft, non-tender, non-distended Integumentary: normal Extremities: no cyanosis, no edema, pulses normal, no ischemia or petechiae Neurologic: pupils equal and round, other (Patient is in deep sleep.) Psychiatric: other (Patient is is in deep sleep.) CBC and BMP: 04/07/21 05:03 04/08/21 06:12 ABG, PT/INR, D-dimer: ABG ABG pH 7.359 (7.320-7.450) 04/03/21 13:09 POC ABG pCO2 17.5 mmHg (32.0-48.0) L 04/03/21 13:09 POC ABG pO2 110.2 mmHg (83-108) H 04/03/21 13:09 POC ABG HCO3 9.6 04/03/21 13:09 ABG O2 Saturation 98.2 (0-100) 04/03/21 13:09 Abnormal lab findings: Abnormal Labs 04/02/21 04/02/21 04/02/21 07:09 07:09 07:09 WBC 17.9 H RBC 3.57 L Hgb 9.6 L Hct MCV 100 H MCH 27 L MCHC 27 L RDW 26.9 H Plt Count Lymph % (Auto) 37.5 H Eos % (Auto) 6.2 H Baso % (Auto) 1.9 H Eos # (Auto) 0.5 H Baso # (Auto) 0.2 H Seg Neuts % (Manual) 85.0 H Lymphocytes % (Manual) 7.0 L Monocytes % (Manual) Nucleated RBC % Seg Neutrophils # Man 15.2 H Lymphocytes # (Manual) ABG pH POC ABG pCO2 POC ABG pO2 ABG Hemoglobin ABG Sodium ABG Potassium ABG Chloride ABG Glucose Sodium Potassium 5.3 H Chloride 92.2 L Carbon Dioxide 2 L* BUN Creatinine 1.8 H Glucose POC Glucose Lactic Acid Calcium 11.1 H Phosphorus Magnesium 3.50 H AST 202 H Lipase Arterial Blood Glucose Arterial Blood Ionized Calcium Salicylates < 0.3 L Acetaminophen Plasma/Serum Alcohol Crossmatch 04/02/21 04/02/21 04/02/21 07:09 07:09 07:09 WBC RBC Hgb Hct MCV MCH MCHC RDW Plt Count Lymph % (Auto) Eos % (Auto) Baso % (Auto) Eos # (Auto) Baso # (Auto) Seg Neuts % (Manual) Lymphocytes % (Manual) Monocytes % (Manual) Nucleated RBC % Seg Neutrophils # Man Lymphocytes # (Manual) ABG pH POC ABG pCO2 POC ABG pO2 ABG Hemoglobin ABG Sodium ABG Potassium ABG Chloride ABG Glucose Sodium Potassium Chloride Carbon Dioxide BUN Creatinine Glucose POC Glucose Lactic Acid Calcium Phosphorus Magnesium AST Lipase 448 H Arterial Blood Glucose Arterial Blood Ionized Calcium Salicylates Acetaminophen 5.0 L Plasma/Serum Alcohol 0.13 H Crossmatch 04/02/21 04/02/21 04/02/21 10:02 12:18 12:31 WBC RBC Hgb Hct MCV MCH MCHC RDW Plt Count Lymph % (Auto) Eos % (Auto) Baso % (Auto) Eos # (Auto) Baso # (Auto) Seg Neuts % (Manual) Lymphocytes % (Manual) Monocytes % (Manual) Nucleated RBC % Seg Neutrophils # Man Lymphocytes # (Manual) ABG pH 6.657 L POC ABG pCO2 16.1 L POC ABG pO2 142.3 H ABG Hemoglobin 9.7 L ABG Sodium 116.9 L ABG Potassium 5.4 H ABG Chloride ABG Glucose 100 H Sodium Potassium Chloride Carbon Dioxide BUN Creatinine Glucose POC Glucose 124 H 112 H Lactic Acid Calcium Phosphorus Magnesium AST Lipase Arterial Blood Glucose 100 H Arterial Blood Ionized Calcium 5.4 H Salicylates Acetaminophen Plasma/Serum Alcohol Crossmatch 09/02/21 09/02/21 09/02/21 13:09 13:09 17:46 WBC RBC Hgb Hct MCV MCH MCHC RDW Plt Count Lymph % (Auto) Eos % (Auto) Baso % (Auto) Eos # (Auto) Baso # (Auto) Seg Neuts % (Manual) Lymphocytes % (Manual) Monocytes % (Manual) Nucleated RBC % Seg Neutrophils # Man Lymphocytes # (Manual) ABG pH POC ABG pCO2 POC ABG pO2 ABG Hemoglobin ABG Sodium ABG Potassium ABG Chloride ABG Glucose Sodium Potassium 5.9 H Chloride 97.9 L 95.4 L Carbon Dioxide 6 L* 16 L D BUN 5 L Creatinine Glucose 146 H 119 H POC Glucose Lactic Acid 11.00 H* Calcium 7.8 L Phosphorus Magnesium AST Lipase Arterial Blood Glucose Arterial Blood Ionized Calcium Salicylates Acetaminophen Plasma/Serum Alcohol Crossmatch 04/02/21 04/02/21 04/03/21 17:46 23:04 05:03 WBC RBC Hgb Hct MCV MCH MCHC RDW Plt Count Lymph % (Auto) Eos % (Auto) Baso % (Auto) Eos # (Auto) Baso # (Auto) Seg Neuts % (Manual) Lymphocytes % (Manual) Monocytes % (Manual) Nucleated RBC % Seg Neutrophils # Man Lymphocytes # (Manual) ABG pH POC ABG pCO2 POC ABG pO2 ABG Hemoglobin ABG Sodium ABG Potassium ABG Chloride ABG Glucose Sodium 135 L Potassium Chloride 92.5 L 88.9 L Carbon Dioxide 12 L 11 L BUN Creatinine 1.8 H Glucose 141 H 170 H POC Glucose Lactic Acid 4.40 H* Calcium 7.5 L 7.1 L Phosphorus Magnesium AST Lipase Arterial Blood Glucose Arterial Blood Ionized Calcium Salicylates Acetaminophen Plasma/Serum Alcohol Crossmatch 04/03/21 04/03/21 04/03/21 13:09 17:10 21:50 WBC RBC 2.53 L Hgb 6.8 L Hct 22.2 L D MCV MCH 27 L MCHC RDW 27.5 H Plt Count 71 L Lymph % (Auto) Eos % (Auto) Baso % (Auto) Eos # (Auto) Baso # (Auto) Seg Neuts % (Manual) Lymphocytes % (Manual) Monocytes % (Manual) Nucleated RBC % Seg Neutrophils # Man Lymphocytes # (Manual) ABG pH POC ABG pCO2 17.5 L POC ABG pO2 110.2 H ABG Hemoglobin 9.6 L ABG Sodium 127.7 L ABG Potassium ABG Chloride 97.0 L ABG Glucose 164 H Sodium Potassium Chloride Carbon Dioxide BUN Creatinine Glucose POC Glucose Lactic Acid Calcium Phosphorus Magnesium AST Lipase Arterial Blood Glucose 164 H Arterial Blood Ionized Calcium 4.3 L Salicylates Acetaminophen Plasma/Serum Alcohol Crossmatch See Detail 04/04/21 04/04/21 04/05/21 07:34 07:34 14:11 WBC 12.4 H 15.0 H RBC 3.10 L 3.53 L Hgb 8.6 L 9.7 L Hct 26.4 L MCV MCH 27 L MCHC RDW 26.0 H 27.4 H Plt Count 63 L 114 L Lymph % (Auto) Eos % (Auto) Baso % (Auto) Eos # (Auto) Baso # (Auto) Seg Neuts % (Manual) 91.0 H Lymphocytes % (Manual) 2.0 L Monocytes % (Manual) Nucleated RBC % 1.0 H Seg Neutrophils # Man 11.3 H Lymphocytes # (Manual) 0.2 L ABG pH POC ABG pCO2 POC ABG pO2 ABG Hemoglobin ABG Sodium ABG Potassium ABG Chloride ABG Glucose Sodium Potassium 3.0 L D Chloride Carbon Dioxide BUN 6 L Creatinine 1.3 H Glucose 151 H POC Glucose Lactic Acid Calcium Phosphorus Magnesium AST Lipase Arterial Blood Glucose Arterial Blood Ionized Calcium Salicylates Acetaminophen Plasma/Serum Alcohol Crossmatch 04/05/21 04/06/21 04/06/21 14:11 13:52 13:52 WBC 13.0 H RBC Hgb Hct MCV MCH MCHC RDW 28.7 H Plt Count 134 L Lymph % (Auto) Eos % (Auto) Baso % (Auto) Eos # (Auto) Baso # (Auto) Seg Neuts % (Manual) Lymphocytes % (Manual) Monocytes % (Manual) Nucleated RBC % Seg Neutrophils # Man Lymphocytes # (Manual) ABG pH POC ABG pCO2 POC ABG pO2 ABG Hemoglobin ABG Sodium ABG Potassium ABG Chloride ABG Glucose Sodium Potassium 2.7 L* 2.9 L* Chloride Carbon Dioxide 32 H BUN Creatinine Glucose 136 H 162 H POC Glucose Lactic Acid Calcium Phosphorus Magnesium AST Lipase Arterial Blood Glucose Arterial Blood Ionized Calcium Salicylates Acetaminophen Plasma/Serum Alcohol Crossmatch 0904/07/21 04/07/21 21:31 05:03 05:03 WBC 14.5 H RBC 3.14 L Hgb 8.8 L Hct 27.0 L D MCV MCH MCHC RDW 28.8 H Plt Count Lymph % (Auto) Eos % (Auto) Baso % (Auto) Eos # (Auto) Baso # (Auto) Seg Neuts % (Manual) 78.0 H Lymphocytes % (Manual) 4.0 L Monocytes % (Manual) 10.0 H Nucleated RBC % 3.0 H Seg Neutrophils # Man 0.0 L Lymphocytes # (Manual) 0.0 L ABG pH POC ABG pCO2 POC ABG pO2 ABG Hemoglobin ABG Sodium ABG Potassium ABG Chloride ABG Glucose Sodium Potassium 2.8 L* Chloride Carbon Dioxide BUN Creatinine Glucose 132 H POC Glucose 155 H Lactic Acid Calcium Phosphorus Magnesium AST Lipase Arterial Blood Glucose Arterial Blood Ionized Calcium Salicylates Acetaminophen Plasma/Serum Alcohol Crossmatch 04/07/21 04/07/21 04/07/21 16:16 20:13 23:14 WBC RBC Hgb Hct MCV MCH MCHC RDW Plt Count Lymph % (Auto) Eos % (Auto) Baso % (Auto) Eos # (Auto) Baso # (Auto) Seg Neuts % (Manual) Lymphocytes % (Manual) Monocytes % (Manual) Nucleated RBC % Seg Neutrophils # Man Lymphocytes # (Manual) ABG pH POC ABG pCO2 POC ABG pO2 ABG Hemoglobin ABG Sodium ABG Potassium ABG Chloride ABG Glucose Sodium Potassium Chloride Carbon Dioxide BUN Creatinine Glucose POC Glucose 161 H Lactic Acid Calcium Phosphorus 0.60 L* 0.80 L* D Magnesium 1.30 L AST Lipase Arterial Blood Glucose Arterial Blood Ionized Calcium Salicylates Acetaminophen Plasma/Serum Alcohol Crossmatch 04/08/21 04/08/21 04/08/21 06:12 09:07 11:35 WBC RBC Hgb Hct MCV MCH MCHC RDW Plt Count Lymph % (Auto) Eos % (Auto) Baso % (Auto) Eos # (Auto) Baso # (Auto) Seg Neuts % (Manual) Lymphocytes % (Manual) Monocytes % (Manual) Nucleated RBC % Seg Neutrophils # Man Lymphocytes # (Manual) ABG pH POC ABG pCO2 POC ABG pO2 ABG Hemoglobin ABG Sodium ABG Potassium ABG Chloride ABG Glucose Sodium 134 L Potassium 3.3 L Chloride Carbon Dioxide BUN 5 L Creatinine Glucose 166 H POC Glucose 151 H 170 H Lactic Acid Calcium Phosphorus Magnesium AST Lipase Arterial Blood Glucose Arterial Blood Ionized Calcium Salicylates Acetaminophen Plasma/Serum Alcohol Crossmatch Allied health notes reviewed: nursing
--- NOTE | 2021-04-08 13:46 | Discharge Summary ---
Providers - Providers Date of Admission: 04/02/21 10:06 Date of discharge: 04/08/21 Attending physician: AMY BORJA 04/02/21 09:09 Consult to Physician [CONS] Urgent Comment: Consulting Provider: MONA BEAL Physician Instructions: Reason For Exam: metabolic acidosis 04/02/21 09:10 Consult to Physician [CONS] Urgent Comment: Consulting Provider: ZIA GONZALEZ Physician Instructions: Reason For Exam: metabolic acidosis 04/03/21 10:21 Consult to Mental Health [CONS] Routine Reason For Exam: AMS with alcohol intoxication Primary care physician: TUBE SORTER Hospitalization Condition: Critical Disposition: HOME / SELF CARE / HOMELESS Final Discharge Diagnosis (Prints w/discharge instructions): Acute toxic metabolic encephalopathy. Alcohol intoxication. Severe metabolic acidosis. Hypotensive versus septic shock, resolved. KENYATTA likely ATN. Hyperkalemia now hypokalemic. Macrocytic anemia. Bilateral pneumonia. Hypertension with sinus tachycardia Time spent for discharge: 34 minutes Core Measure Documentation - Palliative Care Palliative Care/ Comfort Measures: Not Applicable - Core Measures Any of the following diagnoses?: none Exam - Constitutional Vitals: Temp Pulse Resp BP Pulse Ox 98.3 F 105 H 19 141/87 97 04/08/21 08:13 04/08/21 10:00 04/08/21 08:30 04/08/21 08:13 04/08/21 13:03 Plan Activity: advance as tolerated Weight Bearing Status: Weight Bear as Tolerated Diet: low fat, low salt Special Instructions: record daily BP diary Additional Instructions: Repeat serum chemistry in one week Follow up with: FORREST VELASCO MD [Primary Care Provider] - 3-5 Days MONA BEAL MD [Staff Physician] - 7 Days Prescriptions: amLODIPine 10 mg PO QDAY #30 tablet Phosphorus #1 [K-Phos Neutral] 250 mg PO QID #14 tablet Metoprolol [Lopressor TAB] 50 mg PO BID #60 tablet Magnesium Oxide [Mag-Ox] 400 mg PO QDAY #7 tablet
[2021-04-08] MEDS: K-PHOS NEUTRAL 250 MG TAB PO SCH ×3 (18:35→21:20)
[2021-04-08] MEDS ORDERED: POTASSIUM CHLORIDE ER 20 MEQ TAB PO NR (18:43)
[2021-04-08 19:51] VITALS: BP 125/83
[2021-04-09] MEDS ORDERED: MAGNESIUM OXIDE 400 MG TAB PO SCH (10:00)
== END 2021-04-08 21:30 | disposition home or self-care (01) | DRG 871 ==
LOC: ED 05:30 → CC1 10:06 → 4A 04-06 12:31
PROVIDERS: ADMIT Internal Medicine; ATTEND Internal Medicine
PROC: 5A1D70Z Performance of Urinary Filtration, Intermittent, Less than 6 Hours Per Day (ICD-10-PCS; 2021-04-02)
PROC: 4A033R1 Measurement of Arterial Saturation, Peripheral, Percutaneous Approach (ICD-10-PCS; 2021-04-02)
PROC: 02HV33Z Insertion of Infusion Device into Superior Vena Cava, Percutaneous Approach (ICD-10-PCS; principal; 2021-04-03)
PROC: B548ZZA Ultrasonography of Superior Vena Cava, Guidance (ICD-10-PCS; 2021-04-03)
PROC: 5A1D70Z Performance of Urinary Filtration, Intermittent, Less than 6 Hours Per Day (ICD-10-PCS; 2021-04-03)
PROC: 30233N1 Transfusion of Nonautologous Red Blood Cells into Peripheral Vein, Percutaneous Approach (ICD-10-PCS; 2021-04-04)
DX: A41.9 Sepsis, unspecified organism (principal); G92 Toxic encephalopathy; N17.0 Acute kidney failure with tubular necrosis; J18.9 Pneumonia, unspecified organism; R65.21 Severe sepsis with septic shock; K85.90 Acute pancreatitis without necrosis or infection, unspecified; D53.9 Nutritional anemia, unspecified; I10 Essential (primary) hypertension; F10.129 Alcohol abuse with intoxication, unspecified; E87.5 Hyperkalemia; Y90.9 Presence of alcohol in blood, level not specified; E87.6 Hypokalemia; I95.9 Hypotension, unspecified; Z20.822 Contact with and (suspected) exposure to COVID-19
CPT/HCPCS: 36415; 36600; 70450; 71045; 72125; 74176; 76770; 80048; 80053; 80074; 80320; 82140; 82550; 82693; 82805; 82962; 83690; 83735; 83930; 84100; 84550; 84702; 85007; 85025; 85027; 86021; 86038; 86160; 86850; 86900; 86901; 86920; 87040; 93005; 93306; 94640; 94644; 94760; G0378; G0480; J0456; J0610; J0696; J1630; J2060; J2405; J3411; J3475; J3480; J7030; J7040; J7070; J7120; P9016; U0003